=== PATIENT | female | born 1965 ===

== ENCOUNTER 2025-02-27 16:31 | Inpatient (IN) | payer OTHER, SELFPAY ==
--- OUTSIDE RECORDS SUMMARY | 2025-02-19 19:40 | XMS_ITS | Encounter Summary ---
Author Organization Gladis Arreola [facility] Address [address] [place] [address] Care Team Providers Care Spa Director Name Role Phone Sadi Mott Primary Care Provider [phone] Reason for Visit * Reason Comments Behavioral Health Encounter Details Date Type Department Care Team (Late st Contact Info) Description 02/19/2025 7:40 PM EDT - 02/27/2025 1:47 PM EDT Emergency [facility] [address] [place] [id number] Abigail Woodruff MD [address] [place] [id number] Mindi Thomas MD [address] [place] [phone] Hayden Cruz MD [address] [place] [phone] Malvin Schwartz MD [address] [place] [phone] Michael Perez MD [address] [place] [address] Flor Rucker MD [address] [place] [address] Jose Carlos Razo MD [address] [place] [address] Bg Basurto, DO [address] [place] [address] Mariam Sapp, DO [address] [place] [address] Wei Denton MD [address] [place] [address] Agitation (Primary Dx); Depression, unspecified depression type [F32.A]; Major depressive disorder with single episode, remission status unspecified Discharge Disposition: Another Health Care Institution Not Defined Social History Tobacco Use Types Packs/Day Years Used Date Smoking Tobacco: Never Assessed Humiliation, Afraid, Rape, and Kick questionnair e Answer Date Recorded Within the last year, have y ou been afraid of your partner or ex-partner? No 02/26/2025 Emotionally Abused Not on file 02/26/2025 Physically Abused Not on file 02/26/2025 Sexually Abused Not on file 02/26/2025 Overall Financial Resource Strain (CARDIA) Answe r Date Recorded How hard is it for you to pa y for the very basics like food, housing, medical care, and heating? Very hard 02/26/2025 Hunger Vital Sign Answer Date Recorded Within the past 12 months, y ou worried that your food would run out before you got the money to buy more. Never true 02/27/20 25 Ran Out of Food in the Last Year Not on file 02/26/2025 PRAPARE - Transportation Answer Date Re corded In the past 12 months, has l ack of transportation kept you from medical appointments or from getting medications? No 01/31 In the past 12 months, has l ack of transportation kept you from meetings, work, or from getting things needed for daily living? No 02/26/2025 Housing Stability Vital Sign Answer Darci e Recorded In the last 12 months, was t here a time when you were not able to pay the mortgage or rent on time? Yes 02/26/2025 Number of Times Moved in the Last Year Not on fi le 02/26/2025 At any time in the past 12 m [facility], were you homeless or living in a skilled nursing (including now)? Yes 02/26/2025 [facility] Utilities Answer Date Recorded In the past 12 months has th e electric, gas, oil, or water company threatened to shut off services in your home? Yes 02/26/2025 Food Insecurity Answer Date Recorded Within the past 12 months, y ou worried that your food would run out before you got the money to buy more. Never true 02/27/20 25 Ran Out of Food in the Last Year Not on file 02/26/2025 Intimate Partner Violence Answer Date R ecorded Emotionally Abused Not on file 02/26/2025 Within the last year, have y ou been afraid of your partner or ex-partner? No 02/26/2025 Physically Abused Not on file 02/26/2025 Sexually Abused Not on file 02/26/2025 Housing Stability Answer Date Recorded Unstable Housing in the Last Year Not on file 02/26/2025 In the last 12 months, was t here a time when you were not able to pay the mortgage or rent on time? Yes 02/26/2025 [address] of Places Lived in the Last Year Not on f ile 02/26/2025 Comments Unknown Sex and Gender Information Value Date Recorded Sex Assigned at Female 02/19/2025 8:27 PM EDT Legal Sex Female 5:00 PM EST Gender Identity Female 07/30/2023 7:39 PM EST Sexual Orientation Not on file documented as of this encounter Last Filed Vital Signs Vital Sign Reading Time Taken Comments Blood Pressure 115/76 02/27/2025 1:17 PM EDT Pulse 62 02/27/2025 1:17 PM EDT Temperature 36.6 C (97.8 F) 02/27/2025 1:17 PM EDT Respiratory Rate 18 02/27/2025 1:17 PM EDT Oxygen Saturation 99% 02/27/2025 1:17 PM EDT Inhaled Oxygen Concentration - - Weight 77.1 kg (170 lb) 02/19/2025 8:36 PM EDT Height 165.1 cm (5' 5 ) 02/19/2025 8:36 PM EDT Body Mass Index 28.29 02/19/2025 8:36 PM EDT documented in this encounter Medications at Time of Discharge atorvaSTATin (LIPITOR) 20 MG tablet Take 1 tablet (20 mg total) by mouth daily. 02/02/2025 cloNIDine (CATAPRES) 0.1 MG tablet Take 1 tablet (0.1 mg total) by mouth 4 times a day. 02/02/2025 famotidine (PEPCID) 40 MG tablet Take 1 tablet (40 mg total) by mouth daily. 2024 FLUoxetine (PROzac) 40 MG capsule Take 1 capsule (40 mg total) by mouth daily. 01/20/2025 hydrOXYzine pamoate (VISTARIL) 25 MG capsule Take 1 capsule (25 mg total) by mouth 4 times a day as needed for anxiety. 02/02/2025 levothyroxine (SYNTHROID, LEVOXYL) 88 MCG tablet Take 1 tablet (88 mcg total) by mouth every morning. 01/27/2025 OLANZapine (ZyPREXA) 10 MG tablet Take 1 tablet (10 mg total) by mouth at bedtime. 01/11/2025 omeprazole (PriLOSEC) [address] capsule Take 1 capsule (20 mg total) by mouth daily. 2024 pantoprazole (PROTONIX) [address] tablet Take 1 tablet (40 mg total) by mouth daily. 01/22/2025 traZODone (DESYREL) 50 MG tablet Take 1 tablet (50 mg total) by mouth 2 times a day. 02/10/2025 documented as of this encounter Progress Notes * MILTON Ibrahim - 02/27/2025 11:40 AM EDT Images from the original note were not included. ED Psych Progress Note Sticky Note Psych Handoff Reason for visit: SI Psych Hx: depression, alcohol Drugs/Alcohol: alcohol Section 12a: yes HES: IPLOC Suicide Level: low Medication Reconciliation complete:Yes Restraints/IM meds in last 24 hours: Yes. Droperidol, Versed, restraints Other information Was trying to check into [facility] But became very agitated when they asked for medical clearance. Here she was extremely agitated and yelling. Labs Pending for medical clearance 02-21-2025: Labs show downtrending liver function. Ultrasound without acute findings. Medically cleared for psychiatric placement Last edited by MILTON Ibrahim on 02/21/25 at 1050 Vitals Date and Time Temp Pulse Resp BP SpO2 User 02/27/25 0744 97.9 ??F (36.6 ??C) 51 18 104/67 97 % KD 02/26/252013 97.8 ??F (36.6 ??C) 72 -- 119/80 96 % DO 02/26/25 1516 97.5 ??F (36.4 ??C) 59 18 93/63 98 % EB 02/26/25 1304 -- 52 18 95/66 98 % RK 02/26/25 0830 -- -- -- 88/50 -- KF 02/26/25 0826 97.6 ??F (36.4 ??C) 49 20 84/53 97 % KF 02/25/25 1958 97.7 ??F (36.5 ??C) 70 18 117/74 98 % CGP 02/25/25 1725 -- -- -- 98/58 -- IG 02/25/25 1514 97.6 ??F (36.4 ??C) 51 18 117/70 98 % EB 02/25/25 1331 -- 53 18 97/67 98 % IG 02/25/25 0757 98 ??F (36.7 ??C) 47 16 109/73 94 % EB 02/24/252014 98.4 ??F (36.9 ??C) 47 16 102/66 96 % BA 02/24/25 1721 98.2 ??F (36.8 ??C) 56 18 91/63 97 % RK 02/24/25 1419 -- 45 18 125/83 97 % RK 02/24/25 0959 98 ??F (36.7 ??C) 45 18 96/66 96 % RK 02/23/25 2030 98 ??F (36.7 ??C) 54 18 104/66 95 % DO 02/23/25 0810 97.7 ??F (36.5 ??C) 56 16 122/68 97 % EB 02/22/251999 98.1 ??F (36.7 ??C) 58 16 120/73 97 % BA 02/22/25 1723 -- 53 -- 108/69 96 % RK 02/22/25 1415 97.9 ??F (36.6 ??C) 54 18 107/70 97 % RK 02/22/25 0737 97.6 ??F (36.4 ??C) 67 18 103/61 94 % RK 02/21/25 2100 -- 50 16 99/62 94 % BA 02/21/25 1912 -- 56 -- 101/64 -- RK 02/21/25 1446 97.8 ??F (36.6 ??C) 58 16 105/66 96 % KD 02/21/25 0746 96.9 ??F (36.1 ??C) 50 16 109/71 96 % RK 02/21/25 0645 97.5 ??F (36.4 ??C) 51 pt sleeping/resting 14 101/65 97 % BA 02/20/25 1945 98.1 ??F (36.7 ??C) 58 16 106/67 96 % BA 02/20/25 1826 97.7 ??F (36.5 ??C) 70 15 102/67 99 % NR 02/20/25 1220 97.7 ??F (36.5 ??C) 69 -- 112/72 -- NR 02/20/25 0000 98.1 ??F (36.7 ??C) 75 16 145/96 98 % JT 02/19/252303 -- 73 16 97/61 95 % [place] 02/19/255 97.6 ??F (36.4 ??C) 82 20 152/45 96 % [place] ED Course as of 02/27/25 1140 SunFeb 20, 2025 0809 No acute events overnight. [AM] 0949 I spoke to Jocelyn from [facility] who felt criteria for IPLOC. Will initiate bed search [AM] 1159 The patient has been accepted to [facility] by Dr. Escalante [AM] 1254 The patient has been declined from [facility] due to her elevated LFT's. I spoke to her and shedenies any abdominal pain. She states she does not believe she has seen her PCP in several years. 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 She denies any history of IVDU. Will repeat LFT's [AM] 1602 Repeat LFT's improving. The patient has no abdominal pain. She is medically cleared [AM] Sat Feb 21, 2025 0707 Assumed care of this patient at change of shift. Patient has had significantly elevated liver function on today's visit as was last visit which is felt secondary to alcohol/drug use. Afebrile. No leukocytosis. It has been several years since patient last had abdominal imaging and will obtain an abdominal ultrasound to ensure no acute obstructive process and to aid in her medical clearance for psychiatric placement [SD] 0848 Liver function still elevated but improved when compared with yesterday. Ultrasound pending [SD] 1048 Ultrasound without acute findings. Patient medically cleared for psychiatric placement [SD] Sun Feb 22, 2025 1535 No acute events overnight. Will continue bed search [AM] Mon Feb 23, 2025 0715 Assumed care of this patient at change of shift. No significant events overnight. Vital stable. Compliant with medications. Continued section 12/bed search [SD] 0920 Patient seen by home therapy clinician. She was unwilling to participate in the interview this morning or complete safety planning. For this reason, she is obligated to a bed search [SD] Wed Feb 25, 2025 0755 Crisis team has requested a psychiatry consultation for medication management, Prolonged ED stay [SD] 1113 Patient seen by psychiatry with the following medication recommendations: I add Zyprexa 5 mg q 8 hrs PRN paranoia I add Neurontin 200 mg q 6 hrs PRN anxiety [SD] Fri Feb 27, 2025 0906 Patient continues to board for inpatient psychiatric care without any new medical complaints. Labs reviewed. Patient remains medically cleared [SD] 1139 Patient accepted to [facility] for inpatient psychiatric care [SD] ED Course User Index [AM] MILTON Hooper [SD] MILTON Ibrahim Clinical Impression 1. Agitation 2. Depression, unspecified depression type [F32.A] 3. Major depressive disorder with single episode, remission status unspecified Disposion: Transfer Patient discussed with attending physicianBertin * Brooke Germain, MS - 02/27/2025 9:52 AM EDT Behavioral Health Crisis Consult - Follow Up Patient: Anitha Mcintosh : 1965 Admit Date: 02/19/2025 Date of Consult: 02/27/2025 Time of Consult: 9:52 AM CC: Chief Complaint Patient presents with Behavioral Health Chart Reviewed, case discussed with team and staff. Updates: Psych consult outcome/psych medications: Patient was seen by [facility] psychiatry on 02/25 with the following noted: Recommendation/Plan: I add Zyprexa 5 mg q 8 hrs PRN paranoia I add Neurontin 200 mg q 6 hrs PRN anxiety Medical/Psychiatric/Substance/Social/Family History: Histories from previous consult note of 02/26 remain unchanged, except as note in HPI. Current Medications: Scheduled Medications[1] Current PRN: PRN Medications[2] Allergies: Patient has no known allergies. Physical Exam: Patient Vitals for the past 24 hrs: BP Temp Temp src Pulse Resp SpO2 02/27/25 0744 104/67 97.9 ??F (36.6 ??C) Temporal 51 18 97 % 02/26/252013 119/80 97.8 ??F (36.6 ??C) Temporal 72 -- 96 % 02/26/25 1516 93/63 97.5 ??F (36.4 ??C) Oral 59 18 98 % 02/26/25 1304 95/66 -- -- 52 18 98 % Mental Status Exam: General Appearance: Appears stated age, well-developed, well-nourished and no apparent distress. Disheveled. Level of Consciousness: Alert. Orientation: Oriented to person, place, time and situation. Attitude and Behavior: Disengaged. Eye Contact: Unable to assess. Psychomotor Activity: Normal. Speech: Normal rate and rhythm. Soft and mumbled. Language: Normal. Affect: Depressed and flat. Thought Content: Unable to assess. Attention Span: Unable to assess. Insight: Poor. Judgment: Poor. Labs, Imaging & Other Studies: Laboratory: Recent lab results have been reviewed and are notable for N/A. No results found for this or any previous visit (from the past 24 hours). EKG: No studies were reviewed. C-SSRS: Colman Suicide Severity Rating Scale (C-SSRS) Since Last Contact Screener 1) Have you wished you were or wished you could go to sleep and not wake up? (Since Last Contact): No 2) Have you actually had any thoughts about killing yourself? (Since Last Contact): No 6) Have you done anything, started to do anything, or prepared to do anything to end your life? (Since Last Contact): No C-SSRS Risk Level (Since Last Contact Screener): No Risk Indicated (02/27/25 0922 : Brooke Germain MS) Assessment: Anitha Mcintosh is a 59 year old female with a hx of anxiety, depression, SI, and alcohol use who presented to [facility] ED on a Section 12 from [facility] due to SI. Per previous evaluation, Pt reportedly made SI statements at the facility, repeatedly stating on arrival to the ED I want to . Upon evaluation today, patient presentation remains largely unchanged. Patient has blanket pulled over head, minimally engaged. This clinician attempted to engage patient in evaluation multiple timesunsuccessfully. At one point, patient pulled blanket off head states I am mourning then puts blanket back over head. This clinician attempted to provide support, patient does not respond. It was reported by ED staff that patient heard news of her mother's passing last night. IPLOC continues to be recommended. Recommendations: Inpatient Level of Care Disposition Recommendation: Inpatient Level of Care Behavioral Health Diagnosis: Depression, unspecified depression type (F32.A) Duration: Time Spent (min): 60 Case d/w: Nivia CRAFT Manager Of Transportation [place] Signed by: Brooke Germain MS [1] atorvaSTATin, 20 mg, Oral, Daily [Held by provider] cloNIDine, 0.1 mg, Oral, 4 times daily diphenhydrAMINE, 50 mg, Oral, Once famotidine, 40 mg, Oral, Daily FLUoxetine, 40 mg, Oral, Daily levothyroxine, 88 mcg, Oral, Daily (0600) OLANZapine, 10 mg, Oral, QHS pantoprazole, 40 mg, Oral, Daily (0600) traZODone, 50 mg, Oral, BID [2] acetaminophen benzocaine gabapentin hydrOXYzine HCL melatonin nicotine polacrilex OLANZapine * Jeremiah Argueta - 02/26/2025 5:14 PM EDT Behavioral Health Crisis Consult- Contact Note Patient: Anitha Mcintosh : 1965 Admit Date: 02/19/2025 Date of Consult: 02/26/2025 Time of Consult: 5:14 PM Narrative: MSU 8.28 Uploaded to [facility] Declined by; Nilam Nolasco (specialized unit required) * Mamadou Dhaliwaljaylyn, MS - 02/26/2025 12:10 PM EDT Behavioral Health Crisis Consult - Follow Up Patient: Anitha Mcintosh : 1965 Admit Date: 02/19/2025 Date of Consult: 02/26/2025 Time of Consult: 12:10 PM CC: Chief Complaint Patient presents with Behavioral Health Current Medications: Scheduled Medications[1] Current PRN: PRN Medications[2] Allergies: Patient has no known allergies. Physical Exam: Patient Vitals for the past 24 hrs: BP Temp Temp src Pulse Resp SpO2 02/26/25 0830 (!) 88/50 -- -- -- -- -- 02/26/25 0826 (!) 84/53 97.6 ??F (36.4 ??C) Temporal (!) 49 20 97 % 02/25/25 1958 117/74 97.7 ??F (36.5 ??C) Temporal 70 18 98 % 02/25/25 1725 98/58 -- -- -- -- -- 02/25/25 1514 117/70 97.6 ??F (36.4 ??C) Oral 51 18 98 % 02/25/25 1331 97/67 -- -- 53 18 98 % Mental Status Exam: Mental Status Exam General Appearance: Well-developed and no apparent distress. Appears older than stated age and disheveled. Level of Consciousness: Alert. Orientation: Oriented to person and place. Attitude and Behavior: Disengaged. Eye Contact: Eye contact avoidant. Psychomotor Activity: Normal. Speech: Normal rate, volume and rhythm. Language: Normal. Affect: Blunted. Thought Process and Associations: Unable to asses. Attention Span: Distracted. Memory: Intact recall. Fund of Knowledge: Normal. Cognition: Normal. C-SSRS: Colman Suicide Severity Rating Scale (C-SSRS) Since Last Contact Screener 1) Have you wished you were or wished you could go to sleep and not wake up? (Since Last Contact): No 2) Have you actually had any thoughts about killing yourself? (Since Last Contact): No 6) Have you done anything, started to do anything, or prepared to do anything to end your life? (Since Last Contact): No C-SSRS Risk Level (Since Last Contact Screener): No Risk Indicated (02/26/25 1209 : Mamadou Cortés MS) Assessment: Anitha Mcintosh is a 59 yo female currently at the [facility] Emergency Department. She is noted to have a history of anxiety, depression and substance abuse. She was sent to the ED from detox at [facility], where she was making multiple SI statements. Patient was evaluated and deemed appropriate for IPLOC due to concerns with ???SI, hx of SA, homelessness, active substance abuse, unreliable reporting, disengagement, and decline in overall mental health?? (from original evaluation). A review of the chart indicates that patient has had a difficult time engaging in the evaluation process. Collaterals were contacted over the past few days, who expressed concerns with self-care. Upon meeting with patient she is covered with a blanket. She is not engaging in the evaluation process. Presentation appears to be unchanged from the past few days. She has been under behavioral control. IPLOC continues to be recommended Recommendations: Requested LOC: IPLOC Disposition Recommendation: Inpatient Level of Care Behavioral Health Diagnosis: Depression, unspecified depression type (F32.A) Duration: Time Spent (min): 60 Case d/w: Sidewalk Inspector [employer]NANC[employer] director [place] Signed by: Mamadou Cortés MS [1] atorvaSTATin, 20 mg, Oral, Daily [Held by provider] cloNIDine, 0.1 mg, Oral, 4 times daily famotidine, 40 mg, Oral, Daily FLUoxetine, 40 mg, Oral, Daily levothyroxine, 88 mcg, Oral, Daily (0600) OLANZapine, 10 mg, Oral, QHS pantoprazole, 40 mg, Oral, Daily (0600) traZODone, 50 mg, Oral, BID [2] benzocaine gabapentin hydrOXYzine HCL nicotine polacrilex OLANZapine * Joao Morin - 02/25/2025 6:22 PM EDT MSU 8.27 Uploaded to [facility] Declined by; Nilam Nolasco (specialized unit required) * Vera Gray - 02/25/2025 10:03 AM EDT Behavioral Health Crisis Consult - Follow Up Patient: Anitha Mcintosh : 1965 Admit Date: 02/19/2025 Date of Consult: 02/25/2025 Time of Consult: 10:03 AM CC: Chief Complaint Patient presents with Behavioral Health Chart Reviewed, case discussed with team and staff. Collateral Contact: Yes Explain:: I spoke with her friend, Bryan ([phone]), who reports ???she???s off the rails rightnow?? and has ???never seen her this bad.?? She???s had 2 strokes related to drinking about 2 - 3years ago. Her mother is her primary ultrasonic welding machine operator, but her mother has had 2 or 3 heart attacks in the past 1 -2 years and has since moved to [place]. The mother set her up in an apartment with a offset press assistant, food delivery, along with a washer and dryer. He states she is totally incapable of taking careof herself and she has lost her apartment. I left voicemail for her friend, Brisa ([phone]),asking for a return call. Attempted contact with her mother Lia ([phone]), but the mailbox is full. Medical/Psychiatric/Substance/Social/Family History: Histories from previous consult note of 02/20 remain unchanged, except as note in HPI. Current Medications: Scheduled Medications[1] Current PRN: PRN Medications[2] Allergies: Patient has no known allergies. Physical Exam: Patient Vitals for the past 24 hrs: BP Temp Temp src Pulse Resp SpO2 02/25/25 0757 109/73 98 ??F (36.7 ??C) Oral (!) 47 16 94 % 02/24/252014 102/66 98.4 ??F (36.9 ??C) Temporal (!) 47 16 96 % 02/24/25 1721 91/63 98.2 ??F (36.8 ??C) Temporal 56 18 97 % 02/24/25 1419 125/83 -- -- (!) 45 18 97 % Mental Status Exam: Mental Status Exam General Appearance: Appears stated age, well-developed and no apparent distress. Level of Consciousness: Alert. Orientation: Oriented to person. Attitude and Behavior: Disengaged and guarded. Eye Contact: Eye contact avoidant. Speech: Normal rate, volume and rhythm. Language: Normal. Mood: Patient description of mood: I was just crying out for help. Affect: Flat. Thought Content: No suicidal ideation, no self-injurious ideation, no homicidal ideation and not actively hallucinating. Attention Span: Poor. Insight: Poor. Judgment: Poor. Labs, Imaging & Other Studies: Laboratory: Recent lab results have been reviewed No results found for this or any previous visit (from the past 24 hours). EKG: No studies were reviewed. C-SSRS: Colman Suicide Severity Rating Scale (C-SSRS) Since Last Contact Screener 1) Have you wished you were or wished you could go to sleep and not wake up? (Since Last Contact): No 2) Have you actually had any thoughts about killing yourself? (Since Last Contact): No 6) Have you done anything, started to do anything, or prepared to do anything to end your life? (Since Last Contact): No C-SSRS Risk Level (Since Last Contact Screener): No Risk Indicated (02/25/25 0958 : Vera Gray) Assessment: Anitha Mcintosh is a 59 year old female with a hx of anxiety, depression, SI, and alcohol use who presented to [facility] ED on a Section 12 from [facility] due to SI. Per previous evaluation, Pt reportedly made SI statements at the facility, repeatedly stating on arrival to the ED I want to . [facility] was contacted previously who reported the following, [facility] community health nursing director alsocontacted during evaluation. He states that pt reported multiple SI statements yesterday at the facility. Pt did drink a beer but it is unclear how much pt had to drink/if pt had been drinking prior to this. Pt was making SI statements to them so they had called their clinician to respond to the scene. Pt reported intent to harm herself if they did not help her. She also made multiple threateningstatements toward staff at the facility. Pt presented as tearful, labile, and unable to be redirected. Patient's friend Bryan was contacted in previous evaluation who reported the following, He describes patient as sweet, sweet, sweet woman who give her shirt off her back to help somebody but notes current state as really off the rails and quite irritable right now and not talking much. He expresses concern about suicidal ideation, noting individual has made statements over several years.He states she is totally incapable of taking care of herself and she has lost her apartment. Patient is alert and oriented to self only. She was uncooperative throughout the evaluation and demonstrated poor engagement, redirection with no effect. She required prompts to answer questions. Behavior was notable for passing gas and staring at the ipad screen; eye contact was avoidant. Speech was of even tone, with appropriate volume and rate. Energy level appeared in no apparent distress. Affect was flat. Insight, impulse control, and judgment are all assessed as poor. When asked about mood, patient stated, I was just crying out for help, I'm fine now. She reported that she does not like hospitals and is not happy to be here. Patient is unable to appropriately engage in the evaluation or participate in safety planning at this time. Per RN report, patient remained in good behavioralcontrol during the evening and night shifts and took all prescribed medications. Patient denies suicidal ideation, homicidal ideation, auditory or visual hallucinations and self-injurious behavior at this time. However, she initially denied making suicidal statements, then later stated, I found out that my mom was dying so I probably said I wanted to with my mom. She reports a history of suicide attempt several years ago but declined to provide further details. Collateral contacts were attempted but not successful today. Recommendations: IPLOC continues to be recommended at this time Disposition Recommendation: Inpatient Level of Care Behavioral Health Diagnosis: Depression, unspecified depression type (F32.A) Duration: Time Spent (min): 60 Case d/w: Debra Gutierrez Signed by: Hilda Johnson M.Ed. [1] atorvaSTATin, 20 mg, Oral, Daily cloNIDine, 0.1 mg, Oral, 4 times daily famotidine, 40 mg, Oral, Daily FLUoxetine, 40 mg, Oral, Daily levothyroxine, 88 mcg, Oral, Daily (0600) OLANZapine, 10 mg, Oral, QHS pantoprazole, 40 mg, Oral, Daily (0600) traZODone, 50 mg, Oral, BID [2] benzocaine hydrOXYzine HCL nicotine polacrilex * MILTON Ibrahim - 02/25/2025 9:01 AM EDT Images from the original note were not included. ED Psych Progress Note Sticky Note Psych Handoff Reason for visit: SI Psych Hx: depression, alcohol Drugs/Alcohol: alcohol Section 12a: yes HES: IPLOC Suicide Level: low Medication Reconciliation complete:Yes Restraints/IM meds in last 24 hours: Yes. Droperidol, Versed, restraints Other information Was trying to check into [facility] But became very agitated when they asked for medical clearance. Here she was extremely agitated and yelling. Labs Pending for medical clearance 02-21-2025: Labs show downtrending liver function. Ultrasound without acute findings. Medically cleared for psychiatric placement Last edited by MILTON Ibrahim on 02/21/25 at 1050 Vitals Date and Time Temp Pulse Resp BP SpO2 User 02/25/25 1514 97.6 ??F (36.4 ??C) 51 18 117/70 98 % EB 02/25/25 1331 -- 53 18 97/67 98 % IG 02/25/25 0757 98 ??F (36.7 ??C) 47 16 109/73 94 % EB 02/24/252014 98.4 ??F (36.9 ??C) 47 16 102/66 96 % BA 02/24/25 1721 98.2 ??F (36.8 ??C) 56 18 91/63 97 % RK 02/24/25 1419 -- 45 18 125/83 97 % RK 02/24/25 0959 98 ??F (36.7 ??C) 45 18 96/66 96 % RK 02/23/25 2030 98 ??F (36.7 ??C) 54 18 104/66 95 % DO 02/23/25 0810 97.7 ??F (36.5 ??C) 56 16 122/68 97 % EB 02/22/25 2000 98.1 ??F (36.7 ??C) 58 16 120/73 97 % BA 02/22/25 1723 -- 53 -- 108/69 96 % RK 02/22/25 1415 97.9 ??F (36.6 ??C) 54 18 107/70 97 % RK 02/22/25 0737 97.6 ??F (36.4 ??C) 67 18 103/61 94 % RK 02/21/25 2100 -- 50 16 99/62 94 % BA 02/21/25 1912 -- 56 -- 101/64 -- RK 02/21/25 1446 97.8 ??F (36.6 ??C) 58 16 105/66 96 % KD 02/21/25 0746 96.9 ??F (36.1 ??C) 50 16 109/71 96 % RK 02/21/25 0645 97.5 ??F (36.4 ??C) 51 pt sleeping/resting 14 101/65 97 % BA 02/20/25 1945 98.1 ??F (36.7 ??C) 58 16 106/67 96 % BA 02/20/25 1826 97.7 ??F (36.5 ??C) 70 15 102/67 99 % NR 02/20/25 1220 97.7 ??F (36.5 ??C) 69 -- 112/72 -- NR 02/20/25 0000 98.1 ??F (36.7 ??C) 75 16 145/96 98 % JT 02/19/252303 -- 73 16 97/61 95 % [place] 02/19/251954 97.6 ??F (36.4 ??C) 82 20 152/45 96 % [place] ED Course as of 02/25/25 1636 Fri Feb 20, 2025 0809 No acute events overnight. [AM] 0949 I spoke to Jocelyn from crisis who felt criteria for IPLOC. Will initiate bed search [AM] 1159 The patient has been accepted to [facility] by Dr. Escalante [AM] 1254 The patient has been declined from [facility] due to her elevated LFT's. I spoke to her and shedenies any abdominal pain. She states she does not believe she has seen her PCP in several years. 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 She denies any history of IVDU. Will repeat LFT's [AM] 1602 Repeat LFT's improving. The patient has no abdominal pain. She is medically cleared [AM] [facility] Feb 21, 2025 0707 Assumed care of this patient at change of shift. Patient has had significantly elevated liver function on today's visit as was last visit which is felt secondary to alcohol/drug use. Afebrile. No leukocytosis. It has been several years since patient last had abdominal imaging and will obtain an abdominal ultrasound to ensure no acute obstructive process and to aid in her medical clearance for psychiatric placement [SD] 0848 Liver function still elevated but improved when compared with yesterday. Ultrasound pending [SD] 1048 Ultrasound without acute findings. Patient medically cleared for psychiatric placement [SD] [place] Feb 22, 2025 1535 No acute events overnight. Will continue bed search [AM] [facility] Feb 23, 2025 0715 Assumed care of this patient at change of shift. No significant events overnight. Vital stable. Compliant with medications. Continued section 12/bed search [SD] 0920 Patient seen by home therapy clinician. She was unwilling to participate in the interview this morning or complete safety planning. For this reason, she is obligated to a bed search [SD] Wed Feb 25, 2025 0755 Crisis team has requested a psychiatry consultation for medication management, Prolonged ED stay [SD] 1113 Patient seen by psychiatry with the following medication recommendations: I add Zyprexa 5 mg q 8 hrs PRN paranoia I add Neurontin 200 mg q 6 hrs PRN anxiety [SD] ED Course User Index [AM] MILTON Hooper [SD] MILTON Ibrahim Clinical Impression 1. Agitation 2. Depression, unspecified depression type [F32.A] 3. Major depressive disorder with single episode, remission status unspecified Disposion: Boarding Patient discussed with attending physician, Dr. Woodruff * Jeremiah Argueta - 02/24/2025 10:54 AM EDT Behavioral Health Crisis Consult- Contact Note Patient: Anitha Mcintosh : 1965 Admit Date: 02/19/2025 Date of Consult: 02/24/2025 Time of Consult: 10:54 AM Narrative: Uploaded MSU 8. to [facility], all facilities still pending review. * Brooke Oreillylyssa, MS - 02/24/2025 8:25 AM EDT Behavioral Health Crisis Consult - Follow Up Patient: Anitha Mcintosh : 1965 Admit Date: 02/19/2025 Date of Consult: 02/24/2025 Time of Consult: 8:25 AM CC: Chief Complaint Patient presents with Behavioral Health Chart Reviewed, case discussed with team and staff. Updates: Psych consult outcome/psych medications: None Medical/Psychiatric/Substance/Social/Family History: Histories from previous consult note of 02/23 remain unchanged, except as note in HPI. Current Medications: Scheduled Medications[1] Current PRN: PRN Medications[2] Allergies: Patient has no known allergies. Physical Exam: Patient Vitals for the past 24 hrs: BP Temp Temp src Pulse Resp SpO2 02/23/25 2030 104/66 98 ??F (36.7 ??C) Temporal 54 18 95 % Mental Status Exam: General Appearance: Unable to assess, patient did not remove blanket from over head Orientation: Oriented to person. Attitude and Behavior: Disengaged and guarded. Eye Contact: Unable to assess. Psychomotor Activity: Normal. Speech: Normal rate and rhythm. Soft and mumbled. Language: Normal. Affect: Flat. Attention Span: Appropriate. Memory: Grossly intact. Fund of Knowledge: Normal. Cognition: Normal. Insight: Poor. Judgment: Poor. Labs, Imaging & Other Studies: Laboratory: Recent lab results have been reviewed and are notable for N/A. No results found for this or any previous visit (from the past 24 hours). EKG: No studies were reviewed. C-SSRS: Colman Suicide Severity Rating Scale (C-SSRS) Since Last Contact Screener 1) Have you wished you were or wished you could go to sleep and not wake up? (Since Last Contact): No (patinet denies) 2) Have you actually had any thoughts about killing yourself? (Since Last Contact): No (patient denies) C-SSRS Risk Level (Since Last Contact Screener): No Risk Indicated (02/24/2524 : Brooke Germain, MS) Assessment: Anitha Mcintosh is a 59 year old female with a hx of anxiety, depression, SI, and alcohol use who presented to [facility] ED on a Section 12 from [facility] due to SI. Per previous evaluation, Pt reportedly made SI statements at the facility, repeatedly stating on arrival to the ED I want to . [facility] was contacted previously who reported the following, [facility] community health nursing director alsocontacted during evaluation. He states that pt reported multiple SI statements yesterday at the facility. Pt did drink a beer but it is unclear how much pt had to drink/if pt had been drinking prior to this. Pt was making SI statements to them so they had called their clinician to respond to the scene. Pt reported intent to harm herself if they did not help her. She also made multiple threateningstatements toward staff at the facility. Pt presented as tearful, labile, and unable to be redirected. Patient's friend Bryan was contacted in previous evaluation who reported the following, He describes patient as sweet, sweet, sweet woman who give her shirt off her back to help somebody but notes current state as really off the rails and quite irritable right now and not talking much. He expresses concern about suicidal ideation, noting individual has made statements over several years.He states she is totally incapable of taking care of herself and she has lost her apartment. Upon evaluation today, patient presentation remains unchanged, patient difficult to engage in evaluation - patient has blanket over her head upon this clinician entering room, patient declines to remove it even when asked multiple times as it was difficult to hear patient. Speech was soft and mumbled, often needed to ask for repeating. She is largely disengaged and states that she does not want to talk. Patient reports that she does not remember where she was prior to ED arrival, patient initially denies making suicidal statements then later states, I found out that my mom was dying so I probably said I wanted to with my mom. Patient denies current and historical SI, although this does not appear accurate per EMR review. Patient does not appear to be reliable historian at this time.It was difficult to obtain psychiatric/social hx as patient often responded minimally - patient then rolls over and states she no longer wants to speak with this clinician. Patient is not able to appropriately engage in evaluation or safety planning at this time. IPLOC continues to be recommended at this time. Recommendations: Inpatient Level of Care Requested LOC: IPLOC Disposition Recommendation: Inpatient Level of Care Behavioral Health Diagnosis: Depression, unspecified depression type (F32.A) Duration: Time Spent (min): 60 Case d/w: [facility] Shift Lead Debra Gutierrez Signed by: Brooke Germain MS [1] atorvaSTATin, 20 mg, Oral, Daily cloNIDine, 0.1 mg, Oral, 4 times daily famotidine, 40 mg, Oral, Daily FLUoxetine, 40 mg, Oral, Daily levothyroxine, 88 mcg, Oral, Daily (0600) OLANZapine, 10 mg, Oral, QHS pantoprazole, 40 mg, Oral, Daily (0600) traZODone, 50 mg, Oral, BID [2] benzocaine hydrOXYzine HCL nicotine polacrilex * Andrew Sherman LCSW - 02/23/2025 12:11 PM EDT Patient referral uploaded to [facility] * Leslie Lockett - 02/23/2025 9:48 AM EDT [facility] adult unit both informed, via secure electronic communication, that patient is currently boarding at [facility] ED for IP-LOC. * Leslie Melida Lockett - 02/23/2025 9:04 AM EDT Behavioral Health Crisis Consult - Follow Up Patient: Anitha Mcintosh : 1965 Admit Date: 02/19/2025 Date of Consult: 02/23/2025 Time of Consult: 9:04 AM CC: Chief Complaint Patient presents with Behavioral Health Chart Reviewed, case discussed with team and staff. The patient is a 59-year-old female who was evaluated today by telehealth for behavioral assessmentat [facility] ED. The patient was uncooperative for much of this assessment, demonstrating avoidant behaviors such as turning away from the camera, closing her eyes, and providing vague or non-committal answers to questions. She was unable to state why she was at the hospital or how she arrived there, reporting that she had been there for a couple of days. She was disoriented to the current date, initially stating the year was 2019 or 2022, but correctly identified the month as January and the year as 2024 when prompted; she was able to identify the current president. The patient reports a history of being transferred between multiple facilities, expressing frustration and fatigue with the situation, stating she has been in place after place. She reports that she was at someplace in [place] before being sent to [facility]. She states that she became homeless while hospitalized but could not provide details as to how this occurred. She previously lived in [facility]. Her primary concern expressed during the interview was to be discharged to retrieve her cat, which she reports was taken to an animal skilled nursing in [place] at the same time she was taken away a while ago. She was unable to provide the name of the skilled nursing but stated she would need to call to find it. The patient reports she has a disaster recovery coordinator named Srikanth, who she reports she met at recovery, but she does not know where he works or how to contact him. When questioned about suicidal ideation, she was initially non-responsive. She eventually denied any current suicidal ideation. She did report a past suicide attempt by cutting her wrists over 50 years ago, when she was approximately 10 years old. She declined to answer HI questions. She declined to answer most questions and often responding by yelling that she is tired, that she is too tired and is sick of everything and doesn't care anymore. She identified an emergency contact, a friend named Bryan, who has been in recovery for 32 years, but she was unsure if he was aware of her current hospitalization. Due to her non-cooperation and lack of engagement, a full assessment was not possible as she refused to answer questions and continually turned away from the camera and pulled blankets over her head.She was informed that due to her inability to participate in safe discharge planning, she would remain at an inpatient level of care while the team seeks a psychiatric facility placement; patient grunted and again turned away from the telehealth camera. Updates: Per RN, the patient has been in good behavioral control. Collateral Contact: Yes Explain:: I spoke with her friend, Bryan ([phone]), who reports ???she???s off the rails rightnow?? and has ???never seen her this bad.?? She???s had 2 strokes related to drinking about 2 - 3years ago. Her mother is her primary ultrasonic welding machine operator, but her mother has had 2 or 3 heart attacks in the past 1 -2 years and has since moved to [place]. The mother set her up in an apartment with a offset press assistant, food delivery, along with a washer and dryer. He states she is totally incapable of taking careof herself and she has lost her apartment. I left voicemail for her friend, Brisa ([phone]),asking for a return call. Attempted contact with her mother Lia ([phone]), but the mailbox is full. Medical/Psychiatric/Substance/Social/Family History: Histories from previous consult note remain unchanged, except as note in HPI. Current Medications: Scheduled Medications[1] Current PRN: PRN Medications[2] Allergies: Patient has no known allergies. Physical Exam: Patient Vitals for the past 24 hrs: BP Temp Temp src Pulse Resp SpO2 02/23/25 0810 122/68 97.7 ??F (36.5 ??C) Oral 56 16 97 % 08/24/25 2000 120/73 98.1 ??F (36.7 ??C) Temporal 58 16 97 % 02/22/25 1723 108/69 -- -- 53 -- 96 % 02/22/25 1415 107/70 97.9 ??F (36.6 ??C) Temporal 54 18 97 % Mental Status Exam: Mental Status Exam General Appearance: Appears older than stated age, disheveled and moderate distress. Level of Consciousness: Lethargic. Orientation: Oriented to person, place and time. Attitude and Behavior: Disengaged, emotional outbursts, hostile and guarded. Eye Contact: Eye contact avoidant. Psychomotor Activity: Agitated. Speech: Normal rate, rhythm and pitch. Loud and mumbled. Language: Normal. Mood: Patient description of mood: I don't care. Comments: Irritable and apathetic.. Affect: Constricted and irritable. Thought Process and Associations: Thought blocking and disorganized. Comments: Disorganized, tangential at times. Unable to provide a linear history of recent events.. Thought Content: No suicidal ideation, no suicidal plan, no suicidal intent, no suicidal means, no self-injurious ideation and not actively hallucinating. Attention Span: Unable to attend. Memory: Unable to assess. Fund of Knowledge: Unable to assess. Cognition: Unable to assess. Insight: Poor. Comments: Poor. Unable to articulate the reasons for her hospitalization or her current needs beyond wanting her cat.. Judgment: Poor. Labs, Imaging & Other Studies: Laboratory: Recent lab results have been reviewed. No results found for this or any previous visit (from the past 24 hours). EKG: No studies were reviewed. C-SSRS: Colman Suicide Severity Rating Scale (C-SSRS) Since Last Contact Screener 1) Have you wished you were or wished you could go to sleep and not wake up? (Since Last Contact): No 2) Have you actually had any thoughts about killing yourself? (Since Last Contact): No 6) Have you done anything, started to do anything, or prepared to do anything to end your life? (Since Last Contact): No C-SSRS Risk Level (Since Last Contact Screener): No Risk Indicated (02/23/25 0801 : Leslie Lockett) Colman Suicide Severity Rating Scale (C-SSRS) Discharge Screener 1) While you were here in the hospital/program, have you wished you were or wished you could go to sleep and not wake up?: No 2) While you were here in the hospital/program, have you actually had thoughts about killing yourself?: No 6) While you were here in the hospital/program, have you done anything, started to do anything, or prepared to do anything to end your life?: No C-SSRS Risk Level (Discharge Screener): Low (02/23/25 0825 : Leslie Lockett) Assessment: Patient is a 59 y.o. female with past medical and psychiatric history as above now presents with significant disorientation, mood dysregulation, and an inability to care for herself, in the context of alcohol use disorder, homelessness, and multiple medical comorbidities. Her non-compliance with the assessment and history of suicidal behavior place her at a moderate risk of self-harm. She requires continued inpatient psychiatric care for safety, stabilization, and diagnostic clarification. - Risk Factors: History of suicide attempt, history of alcohol use disorder, recent significant stressors (loss of housing, loss of primary caregiver support), social isolation, current disorganized mental state, poor engagement with assessment. - Protective Factors: Stated desire to be reunited with her cat, history of long-term friendships (Bryan), and reported engagement with a disaster recovery coordinator (Srikanth). - Suicide Risk Level: Based on a review of the risk and protective factors and on the clinical interview, I believe that: Ms. Mcintosh is at a moderate risk for suicide. Her non-cooperation, significant life stressors, and history of self-harm are concerning. While she denies recent ideation, her inability to engage fully in the assessment limits a complete evaluation of her current risk. I spoke with her friend, Bryan ([phone]), who reports ???she???s off the rails right now?? and has ???never seen her this bad.?? She???s had 2 strokes related to drinking about 2 - 3 years ago. Her mother is her primary ultrasonic welding machine operator, but her mother has had 2 or 3 heart attacks in the past 1 -2 years and has since moved to [place]. The mother set her up in an apartment with a offset press assistant, food delivery, along with a washer and dryer. He states she is totally incapable of taking care of herselfand has lost her apartment. He reports that he has known her for over 20 years, maintaining contactthroughout. She previously lived in [place], [place] for several years before the recent housing loss. History of alcohol use disorder with periods of sobriety: longest periods were 7 years and 5 years but has been struggling significantly over past couple years. Her mother (Lia) previously provided extensive support including a nice apartment with washer/dryer, food delivery, and financial assistance. Approximately 4 months ago, she went off the rails and began knocking on neigh bors' doors asking for money and lost apartment approximately 3 months ago due to behavior issues in an upscale building. 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 Her family situation complicated by sister with Down syndrome who previously lived with mother but had to be placed in residential care due to mother's declining health. He describes patient as sweet, sweet, sweet woman who give her shirt off her back to help somebody but notes current state as really off the rails and quite irritable right now and not talking much. He expresses concern about suicidal ideation, noting individual has made statements over several years. I left voicemail for her friend, Brisa ([phone]), asking for a return call. I attempted contact with her mother Lia ([phone]), but the mailbox is full. Recommendations: IP-LOC for safety, stabilization, diagnosis clarification to rule out memory impairment, and medication evaluation. Requested LOC: IP Barriers to placement/Specialty Placement Required: No barriers identified. Disposition Recommendation: Inpatient Level of Care Behavioral Health Diagnosis: F32.A - unspecified depressive disorder Duration: Time Spent (min): 63 Case d/w: Debra Gutierrez Signed by: Leslie Lockett Consent for the use of AI-assisted tools for documentation was obtained from the patient and all other participants in the visit prior to this encounter. All questions were answered. Patient understands that they may decline the use of AI-assisted tools. [1] atorvaSTATin, 20 mg, Oral, Daily cloNIDine, 0.1 mg, Oral, 4 times daily famotidine, 40 mg, Oral, Daily FLUoxetine, 40 mg, Oral, Daily levothyroxine, 88 mcg, Oral, Daily (0600) LORazepam, 0.5 mg, Oral, Q12H OLANZapine, 10 mg, Oral, QHS pantoprazole, 40 mg, Oral, Daily (0600) traZODone, 50 mg, Oral, BID [2] benzocaine hydrOXYzine HCL [] LORazepam FOLLOWED BY LORazepam [] LORazepam FOLLOWED BY LORazepam nicotine polacrilex * MILTON Ibrahim - 02/23/2025 7:15 AM EDT Images from the original note were not included. ED Psych Progress Note Sticky Note Psych Handoff Reason for visit: SI Psych Hx: depression, alcohol Drugs/Alcohol: alcohol Section 12a: yes HES: IPLOC Suicide Level: low Medication Reconciliation complete:Yes Restraints/IM meds in last 24 hours: Yes. Droperidol, Versed, restraints Other information Was trying to check into [facility] But became very agitated when they asked for medical clearance. Here she was extremely agitated and yelling. Labs Pending for medical clearance 02-21-2025: Labs show downtrending liver function. Ultrasound without acute findings. Medically cleared for psychiatric placement Last edited by MILTON Ibrahim on 02/21/25 at 1050 Vitals Date and Time Temp Pulse Resp BP SpO2 User 02/22/251999 98.1 ??F (36.7 ??C) 58 16 120/73 97 % 02/22/25 1723 -- 53 -- 108/69 96 % 02/22/25 1415 97.9 ??F (36.6 ??C) 54 18 107/70 97 % 02/22/25 0737 97.6 ??F (36.4 ??C) 67 18 103/61 94 % 02/21/25 2100 -- 50 16 99/62 94 % 02/21/25 1912 -- 56 -- 101/64 -- RK 02/21/25 1446 97.8 ??F (36.6 ??C) 58 16 105/66 96 % [place] 02/21/25 0746 96.9 ??F (36.1 ??C) 50 16 109/71 96 % RK 02/21/25 0645 97.5 ??F (36.4 ??C) 51 pt sleeping/resting 14 101/65 97 % BA 02/20/25 1945 98.1 ??F (36.7 ??C) 58 16 106/67 96 % BA 02/20/25 1826 97.7 ??F (36.5 ??C) 70 15 102/67 99 % NR 02/20/25 1220 97.7 ??F (36.5 ??C) 69 -- 112/72 -- NR 02/20/25 0000 98.1 ??F (36.7 ??C) 75 16 145/96 98 % JT 02/19/25 2304 -- 73 16 97/61 95 % [place] 02/19/25 1955 97.6 ??F (36.4 ??C) 82 20 152/45 96 % [place] ED Course as of 02/23/25 1817 SunFeb 20, 2025 0809 No acute events overnight. [AM] 0949 I spoke to Jocelyn from [facility] who felt criteria for IPLOC. Will initiate bed search [AM] 1159 The patient has been accepted to [facility] by Dr. Escalante [AM] 1254 The patient has been declined from [facility] due to her elevated LFT's. I spoke to her and shedenies any abdominal pain. She states she does not believe she has seen her PCP in several years. 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 She denies any history of IVDU. Will repeat LFT's [AM] 1602 Repeat LFT's improving. The patient has no abdominal pain. She is medically cleared [AM] Sat Feb 21, 2025 0707 Assumed care of this patient at change of shift. Patient has had significantly elevated liver function on today's visit as was last visit which is felt secondary to alcohol/drug use. Afebrile. No leukocytosis. It has been several years since patient last had abdominal imaging and will obtain an abdominal ultrasound to ensure no acute obstructive process and to aid in her medical clearance for psychiatric placement [SD] 0848 Liver function still elevated but improved when compared with yesterday. Ultrasound pending [SD] 1048 Ultrasound without acute findings. Patient medically cleared for psychiatric placement [SD] Sun Feb 22, 2025 1535 No acute events overnight. Will continue bed search [AM] Mon Feb 23, 2025 0715 Assumed care of this patient at change of shift. No significant events overnight. Vital stable. Compliant with medications. Continued section 12/bed search [SD] 0920 Patient seen by home therapy clinician. She was unwilling to participate in the interview this morning or complete safety planning. For this reason, she is obligated to a bed search [SD] ED Course User Index [AM] MILTON Hooper [SD] MILTON Ibrahim Clinical Impression 1. Agitation 2. Depression, unspecified depression type [F32.A] Disposion: Boarding Patient discussed with attending physician, Dr. Perez * MILTON Hooper - 02/22/2025 3:36 PM EDT Images from the original note were not included. ED Psych Progress Note Sticky Note Psych Handoff Reason for visit: SI Psych Hx: depression, alcohol Drugs/Alcohol: alcohol Section 12a: yes HES: IPLOC Suicide Level: low Medication Reconciliation complete:Yes Restraints/IM meds in last 24 hours: Yes. Droperidol, Versed, restraints Other information Was trying to check into [facility] But became very agitated when they asked for medical clearance. Here she was extremely agitated and yelling. Labs Pending for medical clearance 02-21-2025: Labs show downtrending liver function. Ultrasound without acute findings. Medically cleared for psychiatric placement Last edited by MILTON Ibrahim on 02/21/25 at 1050 Vitals Date and Time Temp Pulse Resp BP SpO2 User 02/22/25 1415 97.9 ??F (36.6 ??C) 54 18 107/70 97 % RK 02/22/25 0737 97.6 ??F (36.4 ??C) 67 18 103/61 94 % RK 02/21/25 2100 -- 50 16 99/62 94 % BA 02/21/25 1912 -- 56 -- 101/64 -- RK 02/21/25 1446 97.8 ??F (36.6 ??C) 58 16 105/66 96 % KD 02/21/25 0746 96.9 ??F (36.1 ??C) 50 16 109/71 96 % RK 02/21/25 0645 97.5 ??F (36.4 ??C) 51 pt sleeping/resting 14 101/65 97 % BA 02/20/25 1945 98.1 ??F (36.7 ??C) 58 16 106/67 96 % BA 02/20/25 1826 97.7 ??F (36.5 ??C) 70 15 102/67 99 % NR 02/20/25 1220 97.7 ??F (36.5 ??C) 69 -- 112/72 -- NR 02/20/25 0000 98.1 ??F (36.7 ??C) 75 16 145/96 98 % JT 02/19/25 2304 -- 73 16 97/61 95 % [place] 02/19/25 1955 97.6 ??F (36.4 ??C) 82 20 152/45 96 % [place] ED Course as of 02/22/25 1536 Fri Feb 20, 2025 0809 No acute events overnight. [AM] 0949 I spoke to Jocelyn from [facility] who felt criteria for IPLOC. Will initiate bed search [AM] 1159 The patient has been accepted to [facility] by Dr. Escalante [AM] 1254 The patient has been declined from [facility] due to her elevated LFT's. I spoke to her and shedenies any abdominal pain. She states she does not believe she has seen her PCP in several years. 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 She denies any history of IVDU. Will repeat LFT's [AM] 1602 Repeat LFT's improving. The patient has no abdominal pain. She is medically cleared [AM] Sat Feb 21, 2025 0707 Assumed care of this patient at change of shift. Patient has had significantly elevated liver function on today's visit as was last visit which is felt secondary to alcohol/drug use. Afebrile. No leukocytosis. It has been several years since patient last had abdominal imaging and will obtain an abdominal ultrasound to ensure no acute obstructive process and to aid in her medical clearance for psychiatric placement [SD] 0848 Liver function still elevated but improved when compared with yesterday. Ultrasound pending [SD] 1048 Ultrasound without acute findings. Patient medically cleared for psychiatric placement [SD] Annamarie Feb 22, 2025 1535 No acute events overnight. Will continue bed search [AM] ED Course User Index [AM] MILTON Hooper [SD] MILTON Ibrahim Clinical Impression 1. Agitation 2. Depression, unspecified depression type [F32.A] Disposion: Boarding Patient discussed with attending physician, Dr. Perez Cosigned by Michael Perez MD at 02/22/2025 3:47 PM EDT * MILTON Ibrahim - 02/21/2025 6:54 AM EDT Images from the original note were not included. ED Psych Progress Note Sticky Note Psych Handoff Reason for visit: SI Psych Hx: depression, alcohol Drugs/Alcohol: alcohol Section 12a: yes HES: IPLOC Suicide Level: low Medication Reconciliation complete:Yes Restraints/IM meds in last 24 hours: Yes. Droperidol, Versed, restraints Other information Was trying to check into [facility] But became very agitated when they asked for medical clearance. Here she was extremely agitated and yelling. Labs Pending for medical clearance 02-21-2025: Labs show downtrending liver function. Ultrasound without acute findings. Medically cleared for psychiatric placement Last edited by MILTON Ibrahim on 02/21/25 at 1050 Vitals Date and Time Temp Pulse Resp BP SpO2 User 02/21/25 0746 96.9 ??F (36.1 ??C) 50 16 109/71 96 % RK 02/21/25 0645 97.5 ??F (36.4 ??C) 51 pt sleeping/resting 14 101/65 97 % BA 02/20/25 1945 98.1 ??F (36.7 ??C) 58 16 106/67 96 % BA 02/20/25 1826 97.7 ??F (36.5 ??C) 70 15 102/67 99 % NR 02/20/25 1220 97.7 ??F (36.5 ??C) 69 -- 112/72 -- NR 02/20/25 0000 98.1 ??F (36.7 ??C) 75 16 145/96 98 % JT 02/19/25 2304 -- 73 16 97/61 95 % [place] 02/19/25 1955 97.6 ??F (36.4 ??C) 82 20 152/45 96 % [place] ED Course as of 02/21/25 1439 Fri Feb 20, 2025 0809 No acute events overnight. [AM] 0949 I spoke to Jocelyn from [facility] who felt criteria for IPLOC. Will initiate bed search [AM] 1159 The patient has been accepted to [facility] by Dr. Escalante [AM] 1254 The patient has been declined from [facility] due to her elevated LFT's. I spoke to her and shedenies any abdominal pain. She states she does not believe she has seen her PCP in several years. 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 She denies any history of IVDU. Will repeat LFT's [AM] 1602 Repeat LFT's improving. The patient has no abdominal pain. She is medically cleared [AM] Sat Feb 21, 2025 0707 Assumed care of this patient at change of shift. Patient has had significantly elevated liver function on today's visit as was last visit which is felt secondary to alcohol/drug use. Afebrile. No leukocytosis. It has been several years since patient last had abdominal imaging and will obtain an abdominal ultrasound to ensure no acute obstructive process and to aid in her medical clearance for psychiatric placement [SD] 0848 Liver function still elevated but improved when compared with yesterday. Ultrasound pending [SD] 1048 Ultrasound without acute findings. Patient medically cleared for psychiatric placement [SD] ED Course User Index [AM] MILTON Hooper [SD] MILTON Ibrahim Clinical Impression 1. Agitation 2. Depression, unspecified depression type [F32.A] Disposion: Boarding Patient discussed with attending physician, Dr. Perez * MILTON Johnson - 02/21/2025 6:20 AM EDT I was asked to see this patient by Belen Fink RN as there is been reported difficulties in getting the patient medically cleared for inpatient placement patient secondary to her abnormal labs. The patient has a prior medical history of alcohol abuse, reports historical IV drug use, reports history of cholecystectomy. The patient's laboratory workup has been abnormal, CMP obtained on ER presentation had gross elevations in liver enzymes/transaminitis with AST 785, ALT 358, ALP 215, total bilirubin was within normal limits at 0.2. The patient had repeat labs obtained yesterday which showed improvement but persistent transaminitis with AST 322, ALT 274, ALP 216. I examined the patient personally, she does appear to have hepatomegaly on exam, has some right upper quadrant tenderness to palpation. The patient also reports some nausea/vomiting. The patient's transaminitis may be related to alcohol use, however given her ongoing symptoms, and notable elevations, we will investigate this further. Given history of IV drug use, will order acutehepatitis panel, given right upper quadrant abdominal pain, will order ultrasound and I suspect underlying hepatic steatosis or cirrhosis, given safety concerns, will obtain acetaminophen levels. * Joao Morin - 02/20/2025 5:20 PM EDT Anitha Mcintosh has been faxed to the following facilities for review today: [facility], [facility], [facility], [facility], [facility], [facility], [facility], [facility] unable to accommodate tonight due to high LFTs, if pt is not placed tonight theyd like a repeat of labs to be done in order to review again in the morning. Bed Search 02/20/2025 * Andrew Sherman LCSW - 02/20/2025 11:55 AM EDT BED CANCELED D/T HIGH LFTS documented in this encounter Consult Notes * Olayinka Watson C[employer] WORKING SUPERVISOR - 02/25/2025 10:49 AM EDT Behavioral Health Initial Consult Report Patient: Anitha Mcintosh : 1965 Attending: Abigail Woodruff MD Admit Date: 02/19/2025 Today's Date: 02/25/2025 Current Time: 10:49 AM Consult Requested by: Hospitalist Service Reason for Consult: Med eval History of Present Illness and Reason for Hospitalization: Per initial ED note: Anitha Mcintosh is a 59 y.o. female who presents due to behavioral health issues. When I met the patient, she was screaming in the hallway and being restrained. She will Not provide any history to me. Nursing notes: Pt BIBA from the [facility]. Pt was not formally admitted to the [facility] d/t not having medical clearance. EMS reports confusion, reports pt was drinking a beer prior to them arriving. Pt continually made SI statements while at the CAB stating I want to . Pt arrives on a section 12. Pt, when I entered her room had a blanket over her head. After several requests, pt took blanket off of her head. Pt guarded and offered limited information. Medical History: Past Medical History[1] Past Surgical History[2] Psychiatric History: Noted hx of Depression and PTSD Home Medications: Prescriptions Prior to Admission[3] No results found for this or any previous visit (from the past 24 hours). Current Medications: Current Facility-Administered Medications[4] Laboratory: No results found for this or any previous visit (from the past 24 hours). Allergies: Patient has no known allergies. Substance Abuse History: ETOH dep @DRUGHISTORY@ Social History[5] Violent/Criminal History: none noted Social History: Marital Status: Single [1] Employment Status: Not Employed [3] Employer: Family History: Family History[6] Code Status: No Order Review of Systems: Patient's depressive symptoms include depressed mood, difficulty concentrating, impaired memory, and psychomotor retardation. Psychological ROS: positive for - concentration difficulties, depression, and memory difficulties Mental Status Exam: Appearance: stated age Perception:No AH/VH Behavior: cooperative, calm, and pleasant Speech: soft and slowed Language: intact Attention: intact Concentration: impaired Orientation: date, person, president Memory: impaired Fund of Knowledge: impaired Thought Process: circumstantial, minmal, and slowed Thought Content: No SI/Hi/Delusions/obsessions Mood: depressed Affect: constricted Judgment: limited Insight: limited Diagnosis: Alcohol Dependence and Mood Disorder NOS Assessment: This is a 59 yo female with noted hx of ETOH dep, Depression and PTSD who was sent to from detox d/t SI statements and recent agitation. I was asked to see the pt to adjust medications. At the time I met the pt she was guarded and offered very limited information. Pt did appear depressed and withdrawn. Suicide: Is this Consult for Suicidality? No C-SSRS Screening Since Last Contact (Low - 1 or 2, Mod - 3, High - 4, 5 or 6) [Ask questions 1, 2 and 6. If YES to 2, ask questions 3, 4, 5, and 6] 1. Have you wished you were or wished you could go to sleep and not wake up? no 2. Have you actually had any thoughts of killing yourself? no 3. Have you been thinking about how you might do this? no 4. Have you had these thoughts and had some intention of acting on them? no 5. Have you started to work out or worked out the details of how to kill yourself and do you intendto carry out this plan? no 6. Have you done anything, started to do anything, or prepared to do anything to end your life? no Suicide Risk Assessment: The patient's risk factors include age > 50, recent or past impulsivity, diagnosis of major mental illness or personality disorder, and alcohol/substance abuse, intoxication or withdrawal. The patient's protective factors include identifies reason for living, supportive family or social network, hopefulness, future-orientation, and housing. Suicide Risk Level: Based on a review of the risk and protective factors and on the clinical interview, I believe that: The patient's acute risk of suicide is Moderate. Management of Suicide Risk: Because the patient does not have active suicidal ideation, plan or intent, the patient is willing to get help if unable to maintain his/her safety in the community, and the risks of treatment in thecommunity outweighs its benefits, the patient will be further assessed for psychiatric inpatient level of care. Access to Weapons: No Recommendation/Plan: I add Zyprexa 5 mg q 8 hrs PRN paranoia I add Neurontin 200 mg q 6 hrs PRN anxiety If receiving antipsychotic medication: Hold antipsychotic for QTc > 500 ms. Maintain K>4 and Mag> 2. Discussed With Medical Team: I MILTON Jay in the ED caring for pt Time Spent: 35 minutes Signed by: Olayinka Watson NP 02/25/2025 [1] No past medical history on file. [2] No past surgical history on file. [3] (Not in a hospital admission) [4] Current Facility-Administered Medications Medication atorvaSTATin (LIPITOR) tablet 20 mg cloNIDine (CATAPRES) tablet 0.1 mg famotidine (PEPCID) tablet 40 mg FLUoxetine (PROzac) capsule 40 mg levothyroxine (SYNTHROID, LEVOXYL) tablet 88 mcg OLANZapine (ZyPREXA) tablet 10 mg pantoprazole (PROTONIX) DR tablet 40 mg traZODone (DESYREL) tablet 50 mg [5] [6] No family history on file. Cosigned by Esteban Iqbal MD at 02/26/2025 1:55 PM EDT * Jocelyn Ackerman - 02/20/2025 10:00 AM EDT Behavioral Health Crisis Consult - Initial Assessment Patient: Anitha Mcintosh : 1965 Admit Date: 02/19/2025 Date of Consult: 02/20/2025 Time of Consult: 10:00 AM Consult Requested by: Mindi Thomas MD Reason for Consult: Chief Complaint Patient presents with Behavioral Health History of Present Illness: Patient is a 59 y.o. female with past medical and psychiatric history as listed who presented to the hospital on 02/19/2025 for Behavioral Health. Behavioral Health is consulted for SI statements. Anitha Mcintosh is a 59 year old female with hx of anxiety, depression, SI and attempt and alcohol abuse presenting to [facility] ED on section 12 for SI from [facility]. Medical History: has no past medical history on file. has no past surgical history on file. Psychiatric History: History of psychiatric illness?: Yes History of suicidal ideation?: Yes History of non-suicidal self injury?: No History of interpersonal aggression?: No History of past JAMAL?: Yes Treatment History?: Yes Inpatient Treatment:: Inpatient Psych Outpatient Treatment:: Outpatient Psychopharm Current Providers?: No Collateral Contact: No Explain:: Attempted friend Brisa , and Mother , [facility] Home Medications: Prescriptions Prior to Admission[1] Current Medications: Scheduled Medications[2] Current PRN: PRN Medications[3] Allergies: Patient has no known allergies. Substance Use History Alcohol: Substance and Sexual Activity Alcohol Use None In the past 12 months,have you had 5 or more drinks(men)/4 or more drinks (women) containing alcohol in one day?: No Tobacco: has no history on file for tobacco use. Other: has no history on file for drug use. Prescription Medications: In the past 12 months,have you used any prescription medications just for the feeling, more than prescribed or that were no prescribed for you?: No Substances: In the past 12 months, have you used any drugs?: No Medical and Psychiatric Consequences: Medical/Psychiatric Consequences:: None Psychosocial Consequences: Psychosocial consequences:: None Social History: Currently homeless, per pt account. Unknown last residence, pt states she does not know. Per record review long hx of unstable housing. Socioeconomic History Marital status: Single Employment Status: Not Employed Type of Residence: Homeless Children?: (Unknown) Legal Issues (*Add to Legal History Navigator): Other (Comment) (Unknown) History: History Reading status: No Personal History: has no history on file for sexual activity. Family History: Family History[4] Physical Exam: Patient Vitals for the past 24 hrs: BP Temp Temp src Pulse Resp SpO2 Height Weight 02/20/25 0000 (!) 145/96 98.1 ??F (36.7 ??C) Temporal 75 16 98 % -- -- 02/19/25 2304 97/61 -- -- 73 16 95 % -- -- 02/19/252035 -- -- -- -- -- -- 1.651 m (5' 5 ) 77.1 kg (170 lb) 02/19/251954 (!) 152/45 97.6 ??F (36.4 ??C) -- 82 20 96 % -- -- Mental Status Exam: Mental Status Exam General Appearance: Appears older than stated age, disheveled and mild distress. Level of Consciousness: Lethargic. Orientation: Oriented to person. Attitude and Behavior: Disinhibited and disengaged. Eye Contact: Eye contact avoidant. Speech: Slow and soft. Language: Normal. Affect: Depressed and flat. Thought Process and Associations: Goal directed. Thought Content: Positive for suicidal ideation. No suicidal plan, no self-injurious ideation, no homicidal ideationand not actively hallucinating. Attention Span: Poor. Memory: Abnormal recent memory and abnormal remote memory. Fund of Knowledge: Decreased knowledge of recent events. Cognition: Appropriate for developmental age. Insight: Poor. Judgment: Poor. Labs, Imaging & Other Studies: Laboratory: Recent lab results have been reviewed and are notable for Results for orders placed or performed during the hospital encounter of 02/19/25 (from the past 24 hours) Drug Screen, Urine Result Value Ref Range 6-Aceytlmorphine Screen, Urine Negative Negative Amphetamines Screen, Urine Negative Negative Barbiturates Screen, Urine Negative Negative Benzodiazepine Screen, Urine Negative Negative Buprenorphine Screen, Urine Negative Negative Cannabinoids Screen, Urine Negative Negative Cocaine Metabolite Screen, Urine Negative Negative Ethanol Screen, Urine Positive (A) Negative Fentanyl Screen, Urine Negative Negative Methadone Screen, Urine Negative Negative Opiates Screen, Urine Negative Negative Oxycodone Screen, Urine Negative Negative Tramadol Screen, Urine Negative Negative Creatinine, Jim Urine 23.0 >=15.0 mg/dL Comprehensive Metabolic Panel Result Value Ref Range Sodium 140 135 - 146 mmol/L Potassium 4.1 3.4 - 5.2 mmol/L Chloride 107 98 - 110 mmol/L Total CO2/Bicarbonate 21 (L) 24 - 32 mmol/L Anion Gap 12 2 - 15 mmol/L BUN 10 7 - 24 mg/dL Creatinine, Blood 0.80 0.50 - 1.10 mg/dL Glucose, Blood 97 50 - 100 mg/dL Calcium 8.3 (L) 8.5 - 10.5 mg/dL Total Protein 6.0 (L) 6.2 - 8.2 g/dL Albumin, Blood 3.5 3.4 - 5.2 g/dL Globulin Result 2.5 2.0 - 4.0 g/dL AST (SGOT) 785 (H) 11 - 40 U/L ALT (SGPT) 358 (H) 5 - 35 U/L Alkaline Phosphatase 215 (H) 30 - 115 U/L Total Bilirubin 0.2 0.2 - 1.2 mg/dL Estimated GFR(CKD-EPI) 80 >=60 mL/min/BSA CBC and Differential Result Value Ref Range WBC 4.18 4.00 - 11.00 K/uL RBC 4.02 4.00 - 5.20 M/uL Hemoglobin 11.7 (L) 12.0 - 15.0 g/dL Hematocrit 37.4 36.0 - 45.0 % MCH 29.1 23.0 - 37.0 pg MCHC 31.3 29.0 - 38.0 g/dL MCV 93 82 - 98 fL RDW 13.0 11.5 - 14.5 % Platelet Count 226 150 - 450 K/uL MPV 11.3 6.0 - 14.0 fL Neutrophil 44.3 % Lymphocyte 41.1 % Monocyte 10.8 % Eosinophil 2.6 % Basophil 1.0 % Immature Granulocyte ([place], Myelo, Promyelocyte) 0.2 % Absolute Neutrophil Count 1.85 1.50 - 7.70 K/uL Absolute Immature Granulocyte ([place], Myelo, Promyelocyte) 0.01 0.00 - 0.09 K/uL Absolute Lymphocyte Count 1.72 1.50 - 4.00 K/uL Absolute Monocyte Count 0.45 0.16 - 1.26 K/uL Absolute Eosinophil Count 0.11 (L) 0.15 - 0.30 K/uL Absolute Basophil Count 0.04 0.00 - 0.21 K/uL EKG: No studies were reviewed. C-SSRS Screener and SAFE-T: [place] Suicide Severity Rating Scale (C-SSRS) Screener Incomplete C-SSRS?: Pt refused 1) In the past month, have you wished you were or wished you could go to sleep and not wake up?: Yes 2) In the past month, have you actually had any thoughts of killing yourself?: No (Multiple Si statements) 6a.) Have you ever done anything, started to do anything, or prepared to do anything to end your life?: No C-SSRS Screener Risk Level: Low History of Psychiatric Diagnosis:: Alcohol/Substance Use Disorder, Anxiety disorder/PTSD Presenting Symptoms: Anxiety and/or panic Family History: None Precipitants/ Stressors/ Interpersonal: Homelessness, Recent substance intoxication or withdrawal Change in Treatment: Non-compliant with treatment, Not receiving treatment Step 2: Identify Protective Factors (Protective factors may not counteract significant acute suicide risk factors) Internal Protective Factors: None External Protective Factors: None Step 3: Specific questioning about Thoughts, Plans, and Suicidal Intent - (see Step 1 for Ideation Severity and Behavior) In the past 1 month, how many times have you had these thoughts?: Once a week In the past 1 month, when you have the thoughts, how long do they last?: Less than 1 hour/some of the time In the past 1 month, could/can you stop thinking about killing yourself or wanting to if you want to?: Unable to control thoughts In the past 1 month, are there things - anyone or anything (e.g., family, caodaism, pain of ) - that stopped you from wanting to or acting on thoughts of suicide?: Does not apply In the past 1 month, what reasons did you have for thinking about wanting to or killing yourself? Was it to end the pain or stop the way you were feeling, or was it to get attention, revenge, or reaction from others? Or both?: Equally to get attention, revenge or reaction from others Suicidal Ideation Intensity Total Score: 12 Step 4: Guidelines to Determine Level of Risk and Develop Interventions to LOWER Risk Level Suicide Risk Level Determined by the Clinician : Moderate Suicide Risk Rationale for Suicide Risk Level: Multiple risk factors, SI statements with intent, hx of SI and SA Management of Suicide Risk: Because the risks of treatment in the community outweighs its benefits, the patient will be furtherassessed for psychiatric inpatient level of care Assessment: Anitha Mcintosh is a 59 year old female with hx of anxiety, depression, SI and attempt and alcohol abuse presenting to [facility] ED on section 12 for SI from [place] [facility]. Pt reportedly made SIstatements at the facility, repeatedly stating on arrival to the ED I want to . Pt was restrained at the facility and on early arrival to the ED. Of note, pt denies alcohol abuse despite a positive ethanol level. Pt is now calm, and medically clear for assessment. Pt endorses increased depression in context of many life stressors. She tells me that her mother is dying currently. Pt cat is also currently in the skilled nursing. Pt states that she has had two strokes in her lifetime, making it difficult for her to remember things. Pt is unable to tell me where [place], [place] [facility]. Pt states she doesn't know why she was at [facility], but denies seeking detox. When asked if pt drinks daily, she denies. She reports she is sober currently. Pt also reports historical sobriety at one point of 10 years. She states that she keeps going to multiple programs, they keep telling me it's not a good fit. Pt minimally engaged in assessment and requires a lot of prompting with questions. Pt repeatedly puts the blanket over her head, declines to engage, or states she doesn't know the answer to questions. Pt does endorse that she is depressed with passive SI. Declines plan or intent at this time. Per extensive record review pt does have a hx of SI with SA. She does have a hx of multiple inpatient hospitalizations for her mental health and alcohol abuse. Pt does not appear to be a reliable historian at this time. Pt provides her friend Brisa for collateral , t/w called multiple times and left vm. Also reviewed record and contacted pt mother Lia [phone]. Neither returned call at time of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 Blood 3.5 3.4 - 5.2 g/dL 02/20/2025 2:41 AM EDT [facility] Globulin Result 2.5 2.0 - 4.0 g/dL 02/20/2025 2:41 AM EDT [facility] AST (SGOT) 785(H) 11 - 40 U/L 02/20/2025 2:41 AM EDT [facility] ALT (SGPT) 358(H) 5 - 35 U/L 02/20/2025 2:41 AM EDT [facility] Alkaline Phosphatase 215(H) 30 - 115 U/L 02/20/2025 2:41 AM EDT [facility] Total Bilirubin 0.2 0.2 - 1.2 mg/dL 02/20/2025 2:41 AM EDT [facility] Estimated GFR(CKD-EPI) 80 >=60 mL/min/BSA 02/20/2025 2:41 AM EDT [facility] Blood PERIPHERAL BLOOD SPECIMEN / Unknown Venipuncture / Unknown 02/20/2025 1:55 AM EDT 02/20/2025 1:55 AM EDT Abigail Woodruff MD LAB BLOOD ORDERABLES Final Re sult [facility] [address] [place] [address] * ECG 12 lead, to be obtained, other indication (02/20/2025 1:13 AM EDT) Ventricular Heart Rate 68 BPM EKG [facility] Atrial Heart Rate 68 BPM EKG [facility] IL Interval 200 ms EKG [facility] QRSD Interval 88 ms EKG [facility] QT Interval 418 ms EKG [facility] QTC Interval 444 ms EKG [facility] P [place] 64 degrees EKG [facility] R [place] 9 degrees EKG [facility] T Wave [place] 53 degrees EKG B[facility] MUSE 02/20/2025 1:13 AM EDT 02/20/2025 8:27 AM EDT Narrative EKG ANGELIQUE BRENNA[facility] - 02/20/2025 8:27 AM EDT Normal sinus rhythm Nonspecific ST and T wave abnormality Abnormal ECG Confirmed by Sofía Mejia ([id number]) on 02/20/2025 8:27:38 AM Procedure Note Sofía Pérez MD - 02/20/2025 Normal sinus rhythm Nonspecific ST and T wave abnormality Abnormal ECG Confirmed by Sofía Mejia ([id number]) on 02/20/2025 8:27:38 AM Abigail Woodruff MD ECG ORDERABLES Final Result EKG ANGELIQUE BRENNAN [address] [place] [id number] * (ABNORMAL) Drug Screen, Urine (02/19/2025 10:03 PM EDT) 6-Aceytlmorphine Screen, Urine Negative Negative 02/19/2025 10:57 PM EDT [facility] Comment:Add on order [id number] Opiates and Oxycodone, Urine, Confirmation, if confirmation desired. Amphetamines Screen, Urine Negative Negative 02/19/2025 10:57 PM EDT [facility] Comment: Screen for Amphetamine, Metamphetamine or other Amphetamine-like compounds. Add-on order [id number] Amphetamine, Urine, Confirmation if confirmation desired. Barbiturates Screen, Urine Negative Negative 02/19/2025 10:57 PM EDT [facility] Comment:Add-on order [id number] Barbiturate, Urine, Confirmation if confirmation desired. Benzodiazepine Screen, Urine Negative Negative 02/19/2025 10:57 PM EDT [facility] Comment: Add-on order [id number] Benzodiazepine, Urine, Confirmation if confirmation desired. Buprenorphine Screen, Urine Negative Negative 02/19/2025 10:57 PM EDT [facility] Comment:Add-on order [id number] Buprenorphine, Urine, Confirmation if confirmation desired. Cannabinoids Screen, Urine Negative Negative 02/19/2025 10:57 PM EDT [facility] Comment:Add-on order [id number] Cannabinoids, Urine, if confirmation desired. Cocaine Metabolite Screen, Urine Negative Negative 02/19/2025 10:57 PM EDT [facility] Comment:Add-on order [id number] Cocaine, Urine, Confirmation if confirmation desired. Ethanol Screen, Urine Positive(A) Negative 02/19/2025 10:57 PM EDT [facility] Fentanyl Screen, Urine Negative Negative 02/19/2025 10:57 PM EDT [facility] Comment:Add-on order [id number] Fentanyl Confirmation, Urine, if confirmation desired. Methadone Screen, Urine Negative Negative 02/19/2025 10:57 PM EDT [facility] Comment:Add order [id number] Me thadone, Urine, Confirmation if confirmation desired. Opiates Screen, Urine Negative Negative 02/19/2025 10:57 PM EDT [facility] Comment: Screen for Morphine, Codeine, Hyrdocodone, Hydromorphone, or other Morphine- related opiates. Add on order [id number] Opiates and Oxycodone, Urine, Confirmation if confirmation desired. Oxycodone Screen, Urine Negative Negative 02/19/2025 10:57 PM EDT [facility] Comment:Add-on order [id number] Opiates and Oxycodone, Urine, Confirmation if confirmation desired. Tramadol Screen, Urine Negative Negative 02/19/2025 10:57 PM EDT [facility] Comment:Add-on order [id number] Tramadol Confirmation, Urine, if confirmation desired. Creatinine, Jim Urine 23.0 >=15.0 mg/dL 02/19/2025 10:57 PM EDT [facility] Urine URINE SPECIMEN / Unknown Collection / Unknown 02/19/2025 10:03 PM EDT 02/19/2025 10:28 PM EDT [facility] - 02/19/2025 10:57 PM EDT These tests are for screening purposes only and should only be used for medical purposes. The cutoff concentrations for determining a positive result are as follows: 6-Acetylmorphine 10 ng/mL 6-acetylmorphine Amphetamines 1000 ng/mL d-methamphetamine Barbiturates 200 ng/mL secobarbital Benzodiazepines 200 ng/mL nordiazepam Buprenorphine 5 ng/mL norbuprenorphine Cannabinoids 50 ng/mL COOH-THC Cocaine 300 ng/mL benzoylecgonine Ethanol 20 mg/dL ethanol Fentanyl 5 ng/mL norfentanyl Methadone 300 ng/mL methadone Opiates 300 ng/mL morphine Oxycodone 100 ng/mL oxycodone Tramadol 200 ng/mL tramadol False negative and false positive results may occur due to cross-reactivity, patient medications or sample adulteration. If the validity of these results is uncertain, confirmatory testing can be done upon specific request. us Abigail Woodruff MD URINE ORDERABLES Final Result [facility] [address] [place] [address] documented in this encounter Visit Diagnoses Diagnosis Agitation- Primary Other and unspecified special symptom or syndrome, not elsewhere classified Depression, unspecified depression type [F32.A] Major depressive disorder with single episode, remission status unspecified documented in this encounter Administered Medications Inactive Administered Medications - up to 3 most recent administrations Medication Order MAR Action Action Date Dose Rate Site acetaminophen (TYLENOL) tablet 650 mg 650 mg, Oral, Every 6 hours PRN, Starting on Maria G 02/26/25 at 2117, Until Sun02/27/25 at 1547, mild (1-3) pain, moderate (4-6) pain Given 02/26/2025 9:24 PM EDT 650 mg atorvaSTATin (LIPITOR) tablet 20 mg 20 mg, Oral, Daily, First dose on Sun02/20/25 at 1038, Until Discontinued Given 02/26/2025 8:59 AM EDT 20 mg Given 02/25/2025 9:21 AM EDT 20 mg Given 02/24/2025 10:17 AM EDT 20 mg benzocaine (ORAJEL) 20 % jelly Mouth/Throat, 3 times daily PRN, mild (1-3) pain, Starting on 02/21/25 at 1600, For 1 day Given 02/21/2025 4:42 PM EDT 1 Application benzocaine (ORAJEL) 20 % jelly Mouth/Throat, 4 times daily PRN, mild (1-3) pain, Starting on 02/22/25 at 2133 Given 02/27/2025 12:19 PM EDT 1 Application Given 02/26/2025 9:24 PM EDT Given 02/24/2025 11:08 PM EDT 1 Application cloNIDine (CATAPRES) tablet 0.1 mg 0.1 mg, Oral, 4 times daily, First dose on Sun02/20/25 at 1400, Until Discontinued, On hold since Sun02/26/2025 at 0840 until manually unheld Given 02/25/2025 9:38 PM EDT 0.1 mg Given 02/23/2025 9:01 PM EDT 0.1 mg Given 02/23/2025 3:12 PM EDT 0.1 mg droPERidol (INAPSINE) injection 5 mg 5 mg, Intramuscular, Once, 1 dose, On Sun02/19/25 at 1959 Given 02/19/2025 8:02 PM EDT 5 mg Left Anterior Thigh famotidine (PEPCID) tablet 40 mg 40 mg, Oral, Daily, First dose on Sun02/20/25 at 1038, Until Discontinued Given 02/26/2025 8:59 AM EDT 40 mg Given 02/25/2025 9:19 AM EDT 40 mg Given 02/24/2025 10:17 AM EDT 40 mg FLUoxetine (PROzac) capsule 40 mg 40 mg, Oral, Daily, First dose on Sun02/20/25 at 1038, Until Discontinued Given 02/26/2025 8:59 AM EDT 40 mg Given 02/25/2025 9:20 AM EDT 40 mg Given 02/24/2025 10:17 AM EDT 40 mg gabapentin (NEURONTIN) capsule 200 mg 200 mg, Oral, Every 6 hours PRN, Starting on Sun02/25/25 at 1104, Until Sun02/27/25 at 1547, anxiety ibuprofen (ADVIL,MOTRIN) tablet 600 mg 600 mg, Oral, Once, 1 dose, On 02/21/25 at 1603 Given 02/21/2025 4:42 PM EDT 600 mg levothyroxine (SYNTHROID, LEVOXYL) tablet 88 mcg 88 mcg, Oral, Daily (thyroid, PPIs, heparin flush), First dose on Sun02/20/25 at 1038, Until Discontinued Given 02/27/2025 6:59 AM EDT 88 mcg Given 02/25/2025 6:08 AM EDT 88 mcg Given 02/24/2025 6:22 AM EDT 88 mcg LORazepam (ATIVAN) tablet 1 mg 1 mg, Oral, Every 6 hours, 4 doses, First dose on Sun02/20/25 at 0954, Last dose on Sun02/21/25 at 0354 Given 02/20/2025 9:11 PM EDT 1 mg Given 02/20/2025 10:38 AM EDT 1 mg melatonin tablet 3 mg 3 mg, Oral, At bedtime as needed, Starting on Sun02/26/25 at 2256, Until Sun02/27/25 at 1547, insomnia midazolam (VERSED) injection 2 mg 2 mg, Intramuscular, Once, 1 dose, On Sun02/19/25 at 1959 Given 02/19/2025 8:03 PM EDT 2 mg Right Anterior Thigh nicotine polacrilex (NICORETTE) gum 2 mg 2 mg, Buccal, Every 1 hour PRN, Starting on Sun02/20/25 at 1314, Until Sun02/27/25 at 1547, smoking cessation Given 02/20/2025 1:15 PM EDT 2 mg OLANZapine (ZyPREXA ZYDIS) disintegrating tablet 5 mg 5 mg, Oral, Every 8 hours PRN, Starting on Sun02/25/25 at 1103, Until Sun02/27/25 at 1547, Paranoia OLANZapine (ZyPREXA) tablet 10 mg 10 mg, Oral, At bedtime, First dose on Sun02/20/25 at 2100, Until Discontinued Given 02/26/2025 8:58 PM EDT 10 mg Given 02/25/2025 9:38 PM EDT 10 mg Given 02/24/2025 9:52 PM EDT 10 mg ondansetron (ZOFRAN-ODT) disintegrating tablet 4 mg 4 mg, Oral, Once, 1 dose, On Sun02/21/25 at 0629 Given 02/21/2025 6:39 AM EDT 4 mg pantoprazole (PROTONIX) DR tablet 40 mg 40 mg, Oral, Daily (thyroid, PPIs, heparin flush), First dose on Sun02/20/25 at 1038, Until Discontinued Given 02/27/2025 6:59 AM EDT 40 mg Given 02/25/2025 6:08 AM EDT 40 mg Given 02/24/2025 6:22 AM EDT 40 mg traZODone (DESYREL) tablet 50 mg 50 mg, Oral, 2 times daily, First dose on Sun02/20/25 at 1038, Until Discontinued Given 02/25/2025 9:38 PM EDT 50 mg Given 02/25/2025 9:21 AM EDT 50 mg Given 02/24/2025 9:52 PM EDT 50 mg documented in this encounter Active and Recently Administered Medications Times are shown in EDT. Scheduled Medication Order 02/25/2025 02/26/2025 02/27/2025 atorvaSTATin (LIPITOR) tablet 20 mg 20 mg, Oral, Daily, First dose on Sun02/20/25 at 1038, Until Discontinued 0921 (Given - Provider: Bassam Lazo RN) 0859 (Given - Provider: Yasmin Mcmahan, MIRIAM) 0833 (Not Given - Provider: Idalmis Talavera RN - Reason: Patient Refused) cloNIDine (CATAPRES) tablet 0.1 mg 0.1 mg, Oral, 4 times daily, First dose on Sun02/20/25 at 1400, Until Discontinued, On hold since Sun02/26/2025 at 0840 until manually unheld 0805 (Not Given - Provider: Bassam Lazo RN - Reason: Contraindicated - Comment: HR in the low 50s)1331 (Not Given - Provider: Idalmis Talavera RN - Reason: Contraindicated - Comment: Low bp/hr)1725 (Not Given - Provider: Idalmis Talavera RN - Reason: Contraindicated - Comment: Low BP)2138 (Given - Provider: Belen Fink RN) 0840 (Held by provider - Provider: MILTON Ibrahim - Reason: Abnormal Vitals)0900 (Dose Auto Held - Provider: MILTON Ibrahim)1400 (Dose Auto Held - Provider: MILTON Ibrahim)1800 (Dose Auto Held - Provider: MILTON Ibrahim)2200 (Dose Auto Held - Provider: MILTON Ibrahim) 0900 (Dose Auto Held - Provider: MILTON Ibrahim)1547 (Unheld by provider - Provider: Automatic Discharge Provider) diphenhydrAMINE (BENADRYL) capsule 50 mg 50 mg, Oral, Once, 1 dose, On Sun02/26/25 at 2258 0507 (Not Given - Provider: Zeina Caicedo RN - Reason: Other - Indicate below - Comment: pt was sleeping) famotidine (PEPCID) tablet 40 mg 40 mg, Oral, Daily, First dose on Sun02/20/25 at 1038, Until Discontinued 0919 (Given - Provider: Bassam Lazo RN) 0859 (Given - Provider: Yasmin Mcmahan, RN) 0833 (Not Given - Provider: Idalmis Talavera, RN - Reason: Patient Refused) FLUoxetine (PROzac) capsule 40 mg 40 mg, Oral, Daily, First dose on Sun02/20/25 at 1038, Until Discontinued 09 (Given - Provider: Bassam Lazo RN) 0859 (Given - Provider: Yasmin Mcmahan, MIRIAM) 0833 (Not Given - Provider: Idalmis Talavera RN - Reason: Patient Refused) levothyroxine (SYNTHROID, LEVOXYL) tablet 88 mcg 88 mcg, Oral, Daily (thyroid, PPIs, heparin flush), First dose on Sun02/20/25 at 1038, Until Discontinued 06 (Given - Provider: Belen Fink RN) 06 (Not Given - Provider: Belen Fink RN - Reason: Patient Refused) 0659 (Given - Provider: Zeina Caicedo RN) OLANZapine (ZyPREXA) tablet 10 mg 10 mg, Oral, At bedtime, First dose on Sun02/20/25 at 2100, Until Discontinued 2137 (Given - Provider: Belen Fink RN) 2057 (Given - Provider: Zeina Caicedo RN) pantoprazole (PROTONIX) DR tablet 40 mg 40 mg, Oral, Daily (thyroid, PPIs, heparin flush), First dose on Sun02/20/25 at 1038, Until Discontinued 06 (Given - Provider: Belen Fink RN) 0631 (Not Given - Provider: Belen Fink RN - Reason: Patient Refused) 0659 (Given - Provider: Zeina Caicedo RN) traZODone (DESYREL) tablet 50 mg 50 mg, Oral, 2 times daily, First dose on Sun02/20/25 at 1038, Until Discontinued 0921 (Given - Provider: Bassam Lazo RN)213 (Given - Provider: Belen Fink RN) 0845 (Not Given - Provider: Yasmin Mcmahan RN - Reason: Abnormal Vitals - Comment: BP 88/50 HR 49)2106 (Not Given - Provider: Zeina Caicedo RN - Reason: Other - Indicate below - Comment: Abormal BP) 0938 (Not Given - Provider: Idalmis Talavera RN - Reason: Patient Refused) PRN Medication Order 02/25/2025 02/26/2025 02/27/2025 acetaminophen (TYLENOL) tablet 650 mg 650 mg, Oral, Every 6 hours PRN, Starting on Maria G 02/26/25 at 2117, Until Sun02/27/25 at 1547, mild (1-3) pain, moderate (4-6) pain 2123 (Given - Provider: Zeina Caicedo RN) benzocaine (ORAJEL) 20 % jelly Mouth/Throat, 4 times daily PRN, mild (1-3) pain, Starting on Sun02/22/25 at 2133 2123 (Given - Provider: Zeina Caicedo RN) 121 (Given - Provider: Yasmin Mcmahan RN) gabapentin (NEURONTIN) capsule 200 mg 200 mg, Oral, Every 6 hours PRN, Starting on Sun02/25/25 at 1104, Until Sun02/27/25 at 1547, anxiety hydrOXYzine HCL (ATARAX) tablet 25 mg 25 mg, Oral, 4 times daily PRN, Starting on Sun02/20/25 at 1035, Until Sun02/27/25 at 1547, anxiety melatonin tablet 3 mg 3 mg, Oral, At bedtime as needed, Starting on Maria G 02/26/25 at 2256, Until Sun02/27/25 at 1547, insomnia nicotine polacrilex (NICORETTE) gum 2 mg 2 mg, Buccal, Every 1 hour PRN, Starting on Sun02/20/25 at 1314, Until Sun02/27/25 at 1547, smoking cessation OLANZapine (ZyPREXA ZYDIS) disintegrating tablet 5 mg 5 mg, Oral, Every 8 hours PRN, Starting on Sun02/25/25 at 1103, Until Sun02/27/25 at 1547, Paranoia documented in this encounter Care Teams Spa Director Relationship Specialty Start Date End Date Sadi Mott [address] [place] [id number] PCP - General 02/19/25 documented as of this encounter
--- OUTSIDE RECORDS SUMMARY | 2025-02-27 16:37 | XMS_ITS | Encounter Summary ---
Author Organization [facility] Address [address] [place] [address] Care Team Providers Care Substance Abuse Clinician Name Role Phone Sadi Mott MD Primary Care Provider [phone] Encounter Details Date Type Department Care Team (Late st Contact Info) Description 12/05/2024 Procedure Pass [facility] - Replaced by [facility] [address] [place] [address] Social History Tobacco Use Types Packs/Day Years Used Date Smoking Tobacco: Every Day Cigarettes Alcohol Use Standard Drinks/Week Comments Not Currently 0 (1 standard drink = 0.6 oz pur e alcohol) Housing Stability - SDOH Screener Answer Date Recorded What is your living situation today? Unsteady ho using 12/05/2024 Do you need help with Housing/Detention resources? Not on file 12/05/2024 Patient indicated no issues from the most recent SDOH questionnaire Not on file 12/05/2024 Homeless diagnosis active in problem list or in an encounter in the past year? Not on file 12/05/2024 Transportation - SDOH Screener Answer D ate Recorded Do you have trouble getting transportation to medical appointments? No 12/05/2024 Do you need help with Transp ortation to medical appointments? Not on file 12/05/2024 Patient indicated no issues from the most recent SDOH questionnaire Not on file 12/05/2024 Food Insecurity - SDOH Screener Answer Date Recorded Within the past 12 months, t he food you bought just didn't last and you didn't have money to get more? Never true 12/05/2024 Within the past 12 months, y ou worried whether your food would run out before you got money to buy more? Never true 2024 Do you need help with Food resources? Not on clau e 12/05/2024 Patient indicated no issues from the most recent SDOH questionnaire Not on file 12/05/2024 Utilities - SDOH Screener Answer Date R ecorded Do you have trouble paying y our heating and/or electricity bill? No 12/05/2024 Do you need help with Utilities? Not on file 12/05/2024 Patient indicated no issues from the most recent SDOH questionnaire Not on file 12/05/2024 Comments No Sex and Gender Information Value Date Recorded Sex Assigned at Female 04/08/2024 10:14 AM EDT Legal Sex Female 1:43 PM EDT Gender Identity Female 04/08/2024 10:14 AM EDT Sexual Orientation Straight 04/08/2024 10 :14 AM EDT documented as of this encounter Plan of Treatment Upcoming Encounters Date Type Department Care Team (Late st Contact Info) Description 03/11/2025 1:30 PM EDT Office Visit [facility] [address] [facility], [address] [place] [phone] Sailaja Brooke NP [address] [place] [address] documented as of this encounter Visit Diagnoses Not on filedocumented in this encounter Care Teams Substance Abuse Clinician Relationship Specialty Start Date End Date Sadi Mott MD [address] [facility] [address] [place] [address] PCP - General Internal Medicine 03/26/23 documented as of this encounter
--- OUTSIDE RECORDS SUMMARY | 2025-02-27 16:37 | XMS_ITS | Clinical Summary ---
Author Organization [facility] Address [address] [place] [address] Care Team Providers Care Cardiac Cath Lab Manager Name Role Phone Sadi Mott MD Primary Care Provider [phone] Allergies No known active allergies Medications atorvastatin 20 MG tablet Take 1 tablet (20 mg total) by mouth at bedtime 04/26/20 23 Active cholecalciferol ([place]wood VITAMIN D3) 50 mcg (2000 units) capsule Take 1 capsule (2,000 Units total) by mouth daily Active FLUoxetine 40 MG capsule Take 1 capsule (40 mg total) by mouth daily 10/29/19 25 Active levothyroxine (SYNTHROID) 88 MCG tablet Take 1 tablet (88 mcg total) by mouth daily @ 6 AM 05/10/20 23 Active OLANZapine 10 MG tablet Take 1 tablet (10 mg total) by mouth at bedtime 05/10/20 23 Active guaiFENesin (MucINEX) 600 MG extended release tablet Take 1 tablet (600 mg total) by mouth 2 (two) times a day Active multiple vitamins (multivitamin) tablet Take 1 tablet by mouth daily @ 8AM Active naltrexone (REVIA) 50 MG tablet Take 1 tablet (50 mg total) by mouth every morning Active Lactobacillus (PROBIOTIC ACIDOPHILUS) capsule Take 1 capsule by mouth daily In the AM Active thiamine (VITAMIN B-1) 100 MG tablet Take 1 tablet (100 mg total) by mouth daily Active acetaminophen 325 MG tablet Take 2 tablets (650 mg total) by mouth every 4 (four) hours as needed for fever, mild pain (1-3), headaches or moderate pain (4-6) Do not exceed 6 doses in 24 hour period Active albuterol sulfate 108 (90 Base) MCG/ACT (PROVENTIL HFA) inhalation aerosol Inhale 1 puff every 6 (six) hours as needed for wheezing or shortness of breath Active alum & mag hydroxide simethicone [id number] mg/30 mL oral suspension Take 30 mL by mouth as needed For gastric upset. Not to exceed 4 doses in 24 hours Active diphenhydrAMINE 25 mg capsule Take 2 capsules (50 mg total) by mouth at bedtime as needed for sleep May give with melatonin Active bismuth subsalicylate 262 mg/15 mL oral suspension Take 30 mL (524 mg total) by mouth every 6 (six) hours as needed For abdominal distress Active cloNIDine (CATAPRES) 0.1 MG tablet Take 1 tablet (0.1 mg total) by mouth every 4 (four) hours as needed for anxiety Hold for HP 90/60 or pulse under 60 Active guaiFENesin 100 mg/5 mL oral liquid 10 mL (200 mg total) every 4 (four) hours as needed for cough If no relief in 3 days notify PCP Active naloxone (NARCAN) 4 mg/0.1 mL nasal spray liquid 1 spray (4 mg total) to one nostril as needed for opioid reversal Active magnesium hydroxide (MILK OF MAGNESIA) 400 mg/5 mL oral suspension Take 30 mL by mouth at bedtime as needed for constipation Notify PCP if no results in 3 days Active traZODone 50 MG tablet Take 1 tablet (50 mg total) by mouth at bedtime as needed for insomnia Active senna (SENOKOT) 8.6 MG tablet Take 2 tablets (17.2 mg total) by mouth 2 (two) times a day as needed for constipation Active hydrOXYzine pamoate 25 MG capsule Take 1 capsule (25 mg total) by mouth every 6 (six) hours as needed for anxiety Active ipratropium-albut silvia (DUONEB) 0.5-2.5 mg/3 mL inhalation solution Take 3 mL by nebulization every 4 (four) hours as needed for wheezing or shortness of breath Congestion Active melatonin 3 MG tablet Take 1 tablet (3 mg total) by mouth at bedtime as needed for sleep May repeat times one- may give with benadryl Active polyethylene glycol 3350 (MIRALAX) 17 g/Scoop powder for oral solution Mix 17 g as directed and take by mouth daily as needed for constipation Active pantoprazole (PROTONIX) 40 MG delayed release EC tabletIndications :Chronic gastrojejunal anastomotic ulcer Take 1 tablet (40 mg total) by mouth 2 (two) times a day before breakfast and dinner 180 tablet 01/15/20 25 025 Active Active Problems Problem Noted Date Diagnosed Date Stenosis of intestine 12/07/2024 Gastrointestinal ulcer 12/07/2024 GI bleed 12/04/2024 Assessment & Plan (12/06/2024 5:34 PM EDT): Patient presenting after she had 3 episodes of black emesis and also noticed 1 black stool day of adm. She denies any diarrhea. Patient has a history of Reva-en-Y gastric bypass and alcohol use disorder currently in remission. Currently denies nausea. Hemoglobin WNL. Stool guaiac in the ED positive. Plan: C/w Protonix 40 mg IV b.i.d. GI consulted and planning for EGD tomorrow Monitor hemoglobin Assessment & Plan (12/05/2024 5:17 PM EDT): Patient presenting after she had 3 episodes of black emesis and also noticed 1 black stool today. She denies any diarrhea. Patient has a history of Reva-en-Y gastric bypass and alcohol use disorder currently in remission. Currently denies nausea. Hemoglobin WNL. Stool guaiac in the ED positive. Plan: C/w Protonix 40 mg IV b.i.d. GI consulted Monitor hemoglobin Assessment & Plan (12/04/2024 5:56 PM EDT): Patient presenting after she had 3 episodes of black emesis and also noticed 1 black stool today. She denies any diarrhea. Patient has a history of Reva-en-Y gastric bypass and alcohol use disorder currently in remission. Currently denies nausea. Hemoglobin WNL. Stool guaiac in the ED positive. Plan: Start soft diet without any red color products, NPO after midnight. Protonix 40 mg IV b.i.d. GI consult Monitor hemoglobin Coffee ground emesis 12/04/2024 Assessment & Plan (12/06/2024 5:34 PM EDT): Patient presenting after she had 3 episodes of black emesis and also noticed 1 black stool day of adm. She denies any diarrhea. Patient has a history of Reva-en-Y gastric bypass and alcohol use disorder currently in remission. Currently denies nausea. Hemoglobin WNL. Stool guaiac in the ED positive. Plan: C/w Protonix 40 mg IV b.i.d. GI consulted and planning for EGD tomorrow Monitor hemoglobin Assessment & Plan (12/05/2024 5:17 PM EDT): Patient presenting after she had 3 episodes of black emesis and also noticed 1 black stool today. She denies any diarrhea. Patient has a history of Reva-en-Y gastric bypass and alcohol use disorder currently in remission. Currently denies nausea. Hemoglobin WNL. Stool guaiac in the ED positive. Plan: C/w Protonix 40 mg IV b.i.d. GI consulted Monitor hemoglobin Assessment & Plan (12/04/2024 5:56 PM EDT): Patient presenting after she had 3 episodes of black emesis and also noticed 1 black stool today. She denies any diarrhea. Patient has a history of Reva-en-Y gastric bypass and alcohol use disorder currently in remission. Currently denies nausea. Hemoglobin WNL. Stool guaiac in the ED positive. Plan: Start soft diet without any red color products, NPO after midnight. Protonix 40 mg IV b.i.d. GI consult Monitor hemoglobin COPD exacerbation 12/04/2024 Assessment & Plan (12/06/2024 5:34 PM EDT): On adm noted wheezing on exam. Patient endorses cold-like illness which she estimates started less than 1 week ago. Has a history of questionable asthma versus COPD. She denies current use of any inhalers. CXR unremarkable. Negative flu/covid/rsv Day after adm worsened with wheezing and rhonchi. Today rhonchi has improved no wheezing. Plan: C/w symbicort C/w Q4 duonebs Avoid prednisone if possible. Assessment & Plan (12/05/2024 5:17 PM EDT): Noted wheezing on exam. Patient endorses cold-like illness which she estimates started less than 1 week ago. Has a history of questionable asthma versus COPD. She denies current use of any inhalers. CXR unremarkable. Negative flu/covid/rsv Today she is coughing and has diffuse rhonchi on exam and developed a cough, is feeling mild dyspnea. Plan: C/w symbicort Add duonebs Q4 patrick Assessment & Plan (12/04/2024 5:56 PM EDT): Noted wheezing on exam. Patient endorses cold-like illness which she estimates started less than 1 week ago. Has a history of questionable asthma versus COPD. She denies current use of any inhalers. Denies shortness of breath, has not noticed a wheeze. Plan: Start Symbicort b.i.d. and DuoNebs p.r.n. Chest x-ray Check viral multiplex Tobacco dependence 12/04/2024 Assessment & Plan (12/06/2024 5:34 PM EDT): Currently smokes about 4-5 cigarettes per day. P.r.n. nicotine patch, she will ask for it if she needs it. Assessment & Plan (12/05/2024 5:17 PM EDT): Currently smokes about 4-5 cigarettes per day. P.r.n. nicotine patch, she will ask for it if she needs it. Assessment & Plan (12/04/2024 5:56 PM EDT): Currently smokes about 4-5 cigarettes per day. P.r.n. nicotine patch, she will ask for it if she needs it. History of alcoholism 12/26/2023 Overview (12/26/2023): Controlled with Vivitrol through [employer] Q 3 weeks Encounters Date Type Department Care Team Description 01/14/2025 12:30 PM EDT Office Visit [facility] [address] [place] [phone] Sailaja Brooke, HAMZAH Chronic gastrojejunal anastomotic ulcer (Primary Dx); Upper GI bleeding 12/12/2024 Results Follow-Up [facility] [address] [place] [address] Martín Denton MD PhD Surgical Pathology Exam 12/08/2024 Pharmacy Visit [facility] [address] [place] [phone] 12/07/2024 10:04 AM EDT Anesthesia Event [address] [phone] Marlon Montesinos MD 12/05/2024 Procedure Pass [address] [phone] 12/05/2024 Pharmacy Visit [facility] [address] [place] [phone] 12/04/2024 1:26 PM EDT - 12/07/2024 4:33 PM EDT Hospital Encounter [address] [phone] Bere Ward DO GI bleed (Primary Dx); Coffee ground emesis; Black stool; Upper GI bleed Discharge Disposition: Home or Self Care 12/04/2024 Procedure Pass [address] [phone] 12/04/2024 Travel from Last 3 Months Family History Medical History Relation Name Comments No Known Problems Mother Relation Name Status Comments Mother Alive Social History Tobacco Use Types Packs/Day Years Used Date Smoking Tobacco: Every Day Cigarettes Tobacco Cessation:Ready to Q uit: No; Counseling Given: No Alcohol Use Standard Drinks/Week Comments Not Currently 0 (1 standard drink = 0.6 oz pur e alcohol) Housing Stability - SDOH Screener Answer Date Recorded What is your living situation today? Unsteady ho using 12/05/2024 Do you need help with Housing/Usp resources? Not on file 12/05/2024 Patient indicated [...] Orientation Straight 04/08/2024 10 :14 AM EDT Last Filed Vital Signs Vital Sign Reading Time Taken Comments Blood Pressure 118/82 01/14/2025 1:18 PM EDT Pulse 63 01/14/2025 1:18 PM EDT Temperature 36.6 C (97.9 F) 12/07/2024 3:15 PM EDT Respiratory Rate 16 01/14/2025 1:18 PM EDT Oxygen Saturation 98% 01/14/2025 1:18 PM EDT Inhaled Oxygen Concentration - - Weight 79.4 kg (175 lb) 01/14/2025 1:18 PM EDT Height 167.6 cm (5' 6 ) 01/14/2025 1:18 PM EDT Body Mass Index 28.25 01/14/2025 1:18 PM EDT Plan of Treatment Upcoming Encounters Date Type Department Care Team (Late st Contact Info) Description 03/11/2025 1:30 PM EDT Office Visit [facility] [address] [place] [address] Sailaja Brooke NP [address] [place] [address] Health Maintenance Due Date Last Done Comments Hepatitis B Screening 12/02/1981 Hepatitis C Screening 12/02/1981 Cervical Cancer Screening: Abnormal Pap/HPV 12/02/1984 Breast Cancer Screening [address] Colonography 12/02/2008 Cholesterol Screening 12/02/2008 Colonoscopy 12/02/2008 Colorectal Cancer Screening 12/02/2008 FIT-DNA 12/02/2008 FOBT 12/02/2008 Sigmoidoscopy 12/02/2008 Pneumococcal Vaccines 50+ yrs (2 of 2 - PCV) 08/02/2011 08/02/2010 Zoster Standard Vaccine (1 of 2) 12/02/2013 RSV Immunization Patients 60+ years or (1 - Risk 60-74 years 1-dose series) 2023 COVID-19 Vaccine ( season) 2024 04/11/2023, 11/15/2021, 02/02/2021, Additional history exists Annual Physical 12/25/2024 12/26/2023 Influenza Vaccine (#1) 2025 , 03/30/2017, 04/01/2016, Additional history exists DTaP,Tdap,and Td Vaccines (3 - Td or Tdap) 01/19/2033 01/19/2023, 08/02/2010 HIB Vaccines Aged Out No longer eligi ble based on patient's age to complete this topic Hepatitis A Vaccine Aged Out No longe r eligible based on patient's age to complete this topic Procedures Procedure Name Priority Date/Time Associated Diagnosis Comments AMB REFERRAL TO GASTROENTEROLOGY First Available/Lc contreras 01/14/2025 1:56 PM EDT Upper GI bleed EGD Routine 12/07/2024 10:11 AM EDT Coffee ground emesis Black stool SURGICAL PATHOLOGY EXAM Routine 12/08/19 10:11 AM EDT GI bleed Coffee ground emesis Black stool COMPREHENSIVE METABOLIC PANEL Routine 12/07/2024 7:48 AM EDT CBC (NO DIFFERENTIAL) Routine 12/07/2024 7:48 AM EDT BASIC METABOLIC PANEL Routine 12/06/2024 6:11 AM EDT CBC AND AUTO DIFFERENTIAL Routine 12/06/2024 6:11 AM EDT COMPREHENSIVE METABOLIC PANEL Routine 12/05/2024 10:49 AM EDT CBC AND AUTO DIFFERENTIAL Routine 12/05/2024 10:49 AM EDT RESPIRATORY MULTIPLEX PANEL - SARS/FLU/RSV Routine 12/04/2024 7:37 PM EDT XR CHEST 1 VW PORTABLE Routine 6:[address] ANGIO ABD PELVIS W AND/OR WO CONT STAT 12/04/2024 4:07 PM EDT TYPE AND SCREEN STAT 12/04/2024 3:20 PM EDT TYPE AND SCREEN STAT 12/04/2024 3:20 PM EDT ECG 12-LEAD STAT 12/04/2024 2:04 PM EDT LIGHT BLUE TOP STAT 12/04/2024 2:03 PM EDT LAVENDER TOP STAT 12/04/2024 2:03 PM EDT RED TOP STAT 12/04/2024 2:03 PM EDT GREEN PST TOP STAT 12/04/2024 2:03 PM EDT LIPASE STAT 12/04/2024 2:03 PM EDT COMPREHENSIVE METABOLIC PANEL STAT 12/04/2024 2:03 PM EDT CBC AND AUTO DIFFERENTIAL STAT 12/04/2024 2:03 PM EDT EXTRA TUBES STAT 12/04/2024 2:03 PM EDT from Last 3 Months Results * Outpatient referral to Gastroenterology (01/14/2025 1:56 PM EDT) Bere Ward DO OUTPATIENT REFERRAL ORDERABLES Final Result * Esophagogastroduodenoscopy (12/07/2024 10:11 AM EDT) Anatomical Region Laterality Modality Endoscopy Narrative 12/07/2024 10:21 AM EDT Table formatting from the original result was not included. Images from the original result were not included. Esophagogastroduodenoscopy Report [facility] Proceduralist Martín Denton MD PhD Patient Name: Anitha Mcintosh Date of : 1965 PCP Sadi Mott MD Date of Procedure: 12/07/2024 Esophagogastroduodenoscopy Procedure Note Pre-op Diagnosis Black stool, Coffee ground emesis Post-op Diagnosis GIB (gastrointestinal bleeding) Indication Coffee ground emesis Black stool Preprocedure A history and physical has been performed, and patient medication allergies have been reviewed. The patient's tolerance of previous anesthesia has been reviewed. The risks and benefits of the procedure and the sedation options and risks were discussed with the patient. All questions were answered and informed consent obtained. Details of the Procedure The patient underwent monitored anesthesia care, which was administered by an anesthesia professional. The patient's blood pressure, heart rate, level of consciousness, oxygen, respirations, ETCO2 and ECG were monitored throughout the procedure. The scope was introduced through the mouth and advanced to the stomach. Prior to the procedure, the patient's H. Pylori status was unknown. The patient experienced no blood loss. The procedure was not difficult. The patient tolerated the procedure well. There were no apparent adverse events. Findings The esophagus appeared normal. Regular Z-line Stenosed and ulcerated previous Reva-en-Y gastric bypass in the gastrojejunostomy; performed cold forceps biopsy. Unable to traverse using an EGD scope Specimens ID Type Source Tests Collected by Time A : bx stricture Tissue Gastroesophageal Junction (GE Junction) SURGICAL PATHOLOGY EXAM Martín Denton MD PhD 12/07/2024 1011 Medications Medication Total No administrations occurring from 0937 to 1013 on 12/07/24 Impression Overall Impression: - Normal-appearing esophagus. - Evidence of prior gastric bypass. GJ anastomosis was stenosed and ulcerated. Biopsies taken by cold forceps. Recommendation Await pathology results - PPI 40 BID. - Stricture NSAID avoidance. - Outpatient EGD with possible dilation. Jasmyn Cho FIELD HAULER GI PROCEDURE ORDERABLES Fi nal Result * Surgical Pathology Exam (12/07/2024 10:11 AM EDT) Case Report Surgical Pathology Case: [id number] Authorizing Provider: Martín Denton MD PhD Collected: 12/07/2024 1011 Ordering Location: [facility] Received: 12/08/2024 [facility] - Replaced by [facility] Pathologist: Madeleine Mccurdy MD Specimen: Gastroesophageal Junction (GE Junction), bx stricture 12/11/2024 2:24 PM EDT [facility] Final Diagnosis GE junction, biopsy: Inflamed gastric mucosa with intestinal metaplasia. COMMENT: If this biopsy is derived from endoscopically abnormal mucosa 1 cm or more above the GE junction, then the findings meet the [facility] diagnostic criteria of Rocha's esophagus. Otherwise, this is considered intestinal metaplasia at the GE junction. There is no evidence of dysplasia or Carcinoma Note: The technical component was completed at [facility]. - The diagnosis was performed at [facility], [address] [place] [address] [place] [address]. - Please see scanned report for details. - By the electronic signature below at Replaced by [facility], the [facility] Pathologist confirms that Dr. Alvarenga's diagnosis has been accurately cut and pasted as above and the report scanned into this patient's report in the [facility] EMR. 12/11/2024 2:24 PM EDT [facility] at 1424 EDT Reporting Location Report is signed out at [facility] 12/11/2024 2:24 PM EDT [facility] Gross Description A. Received in formalin labeled with the patient's name, initials SM and gastroesophageal are 4 irregular pink fragments of soft tissue ranging in greatest dimension from 0.2 cm to 0.6 cm. The specimen is entirely submitted in cassette A1. Time out of formalin: 12:10 am on 12/09/2024. Gross performed at [facility]. Gross evaluation performed and dictated by: MILTON Howard ([facility])cm. 12/11/2024 2:24 PM EDT [facility] Embedded Images 12/11/2024 2:24 PM EDT [facility] Additional Information This report may contain complex medical terminology and you should discuss this report with the clinician who ordered this test to ensure appropriate understanding of the findings. 12/11/2024 2:24 PM EDT [facility] Tissue Cardioesophageal junction structure / Unknown 12/07/2024 10:11 AM EDT 12/08/2024 7:48 AM EDT us Martín Denton MD PhD PATHOLOGY/CYTOLOGY ORDERABL ES Final Result [facility] [address] [place] [phone] * CBC (No Differential) (12/07/2024 7:48 AM EDT) WBC 6.5 4.8 - 11.2 10*3/ L 12/07/2024 9:01 AM EDT [facility] RBC 3.95 3.60 - 5.40 10*6/ L 12/07/2024 9:01 AM EDT [facility] HGB 12.6 12.0 - 15.8 g/dL 12/07/2024 9:01 AM EDT [facility] HCT 38.0 36.0 - 48.0 % 12/07/2024 9:01 AM EDT [facility] MCV 96.2 82.0 - 98.0 fL 12/07/2024 9:01 AM EDT [facility] MCH 32.0 27.0 - 35.0 pg 12/07/2024 9:01 AM EDT [facility] MCHC 33.2 32.0 - 37.0 g/dL 12/07/2024 9:01 AM EDT [facility] RDW 14.7 12.0 - 15.0 % 12/07/2024 9:01 AM EDT [facility] PLT 315 150 - 400 10*3/ L 12/07/2024 9:01 AM EDT [facility] MPV 9.3 7.0 - 14.0 fL 12/07/2024 9:01 AM EDT [facility] Blood Venipuncture / Unknown 12/07/2024 7:48 AM EDT 12/07/2024 8:54 AM EDT us Bere Ward DO LAB BLOOD ORDERABLES Final Res ult [facility] [address] [place] [phone] * (ABNORMAL) Comprehensive metabolic panel (12/07/2024 7:48 AM EDT) Only the most recent of3 resultswithin the time period is included. Sodium 145 136 - 145 mEq/L 12/07/2024 9:15 AM EDT [facility] Potassium 4.4 3.5 - 5.1 mEq/L 12/07/2024 9:15 AM EDT [facility] Chloride 109 98 - 109 mEq/L 12/07/2024 9:15 AM EDT [facility] CO2 26 20 - 31 mEq/L 12/07/2024 9:15 AM EDT [facility] Anion Gap 10 4 - 15 mEq/L 12/07/2024 9:15 AM EDT [facility] Glucose 92 70 - 100 mg/dL 12/07/2024 9:15 AM EDT [facility] Creatinine 0.72 0.50 - 1.00 mg/dL 12/07/2024 9:15 AM EDT [facility] eGFR (Female) >60 60 - 115 mL/min 12/07/2024 9:15 AM EDT [facility] BUN 7(L) 9 - 23 mg/dL 12/07/2024 9:15 AM EDT [facility] Calcium 8.5 8.3 - 10.6 mg/dL 12/07/2024 9:15 AM EDT [facility] Total Protein 5.7 5.7 - 8.2 g/dL 12/07/2024 9:15 AM EDT [facility] Albumin 3.7 3.2 - 4.8 g/dL 12/07/2024 9:15 AM EDT [facility] A/G Ratio 1.9 1.0 - 2.3 12/07/2024 9:15 AM EDT [facility] Total Bilirubin 0.2 0.2 - 1.0 mg/dL 12/07/2024 9:15 AM EDT [facility] AST 24 13 - 40 U/L 12/07/2024 9:15 AM EDT [facility] Alkaline Phosphatase 117(H) 46 - 116 IU/L 12/07/2024 9:15 AM EDT [facility] ALT 17 7 - 40 U/L 12/07/2024 9:15 AM EDT [facility] Blood Venipuncture / Unknown 12/07/2024 7:48 AM EDT 12/07/2024 8:54 AM EDT us Bere Ward DO LAB BLOOD ORDERABLES Final Res ult [facility] [address] [place] [address] * CBC and Auto Differential (12/06/2024 6:11 AM EDT) Only the most recent of3 resultswithin the time period is included. WBC 5.6 4.8 - 11.2 10*3/ L 12/06/2024 8:13 AM EDT [facility] RBC 3.85 3.60 - 5.40 10*6/ L 12/06/2024 8:13 AM EDT [facility] HGB 12.4 12.0 - 15.8 g/dL 12/06/2024 8:13 AM EDT [facility] HCT 37.7 36.0 - 48.0 % 12/06/2024 8:13 AM EDT [facility] MCV 97.7 82.0 - 98.0 fL 12/06/2024 8:13 AM EDT [facility] MCH 32.3 27.0 - 35.0 pg 12/06/2024 8:13 AM EDT [facility] MCHC 33.0 32.0 - 37.0 g/dL 12/06/2024 8:13 AM EDT [facility] RDW 14.6 12.0 - 15.0 % 12/06/2024 8:13 AM EDT [facility] PLT 325 150 - 400 10*3/ L 12/06/2024 8:13 AM EDT [facility] MPV 9.1 7.0 - 14.0 fL 12/06/2024 8:13 AM EDT [facility] Neut % 51.7 45.0 - 85.0 % 12/06/2024 8:13 AM EDT [facility] Lymph % 33.6 15.0 - 45.0 % 12/06/2024 8:13 AM EDT [facility] Stoddard % 10.1 0.0 - 12.0 % 12/06/2024 8:13 AM EDT [facility] Eos % 2.7 0.0 - 7.0 % 12/06/2024 8:13 AM EDT [facility] Baso % 1.9 0.0 - 3.0 % 12/06/2024 8:13 AM EDT [facility] NRBC% 0 0 /100 WBC /100 WBC 12/06/2024 8:13 AM EDT [facility] Neut # 2.9 2.2 - 9.5 10*3/ L 12/06/2024 8:13 AM EDT [facility] Lym # 1.9 0.7 - 5.0 10*3/ L 12/06/2024 8:13 AM EDT [facility] [place]oddard # 0.6 0.0 - 1.3 10*3/ L 12/06/2024 8:13 AM EDT [facility] Eos # 0.2 0.0 - 0.4 10*3/ L 12/06/2024 8:13 AM EDT [facility] Baso # 0.1 0.0 - 0.3 10*3/ L 12/06/2024 8:13 AM EDT [facility] Blood Venipuncture / Unknown 12/06/2024 6:11 AM EDT 12/06/2024 7:57 AM EDT us Bere Ward DO LAB BLOOD ORDERABLES Final Res ult [facility] [address] [place] [address] * (ABNORMAL) Basic metabolic panel (12/06/2024 6:11 AM EDT) Sodium 144 136 - 145 mEq/L 12/06/2024 8:41 AM EDT [facility] Potassium 4.0 3.5 - 5.1 mEq/L 12/06/2024 8:41 AM EDT [facility] [facility] Chloride 108 98 - 109 mEq/L 12/06/2024 8:41 AM EDT [facility] CO2 27 20 - 31 mEq/L 12/06/2024 8:41 AM EDT [facility] Anion Gap 9 4 - 15 mEq/L 12/06/2024 8:41 AM EDT [facility] Glucose 91 70 - 100 mg/dL 12/06/2024 8:41 AM EDT [facility] Creatinine 0.76 0.50 - 1.00 mg/dL 12/06/2024 8:41 AM EDT [facility] eGFR (Female) >60 60 - 115 mL/min 12/06/2024 8:41 AM EDT [facility] BUN 6(L) 9 - 23 mg/dL 12/06/2024 8:41 AM EDT [facility] Calcium 8.5 8.3 - 10.6 mg/dL 12/06/2024 8:41 AM EDT [facility] Blood Venipuncture / Unknown 12/06/2024 6:11 AM EDT 12/06/2024 7:57 AM EDT us Bere Ward DO LAB BLOOD ORDERABLES Final Res ult [facility] [address] [place] [phone] * Respiratory Multiplex Panel - SARS/FLU/RSV (12/04/2024 7:37 PM EDT) SARS CoV-2 PCR Negative Negative 12/04/2024 9:27 PM EDT [facility] FLU A PCR Negative Negative 12/04/2024 9:27 PM EDT [facility] FLU B PCR Negative Negative 12/04/2024 9:27 PM EDT [facility] RSV PCR Negative Negative 12/04/2024 9:27 PM EDT [facility] Nasopharyngeal Nasopharyngeal swab / Unknown Collection / Unknown 12/04/2024 7:37 PM EDT 12/04/2024 7:38 PM EDT Narrative [facility] - 12/04/2024 9:27 PM EDT The Xpert Xpress CoV-2/Flu/RSV plus test is only for use under the Food and Drug Administration's Emergency Use Authorization. Positive results are indicative of active infection, but do not rule out bacterial infection or co-infection with other pathogens not detected by the test. Negative results do not preclude SARS-CoV-2, influenza A virus, influenza B virus and/or RSV infection and should not be used as the sole basis for treatment or other patient management decisions. Negative results must be combined with clinical observations, patient history, and/or epidemiological information. Clinical correlation with patient history and other diagnostic information is necessary to determine patient infection status. The agent detected may not be the definite cause of the disease. Reference Range: Negative (This is the expected value, NOT your result) us Bere Ward DO MICROBIOLOGY - GENERAL ORDERAB LES Final Result [facility] [address] [place] [address] * X-ray chest 1 view portable (12/04/2024 6:08 PM EDT) Anatomical Region Laterality Modality Chest, Ortho Chest Digital Radio graphy 12/04/2024 6:16 PM EDT Impressions 12/04/2024 6:16 PM EDT IMPRESSION: No acute cardiopulmonary process. RS: [id number] Narrative 12/04/2024 6:16 PM EDT HISTORY: wheezing TECHNIQUE: XR CHEST 1 VW PORTABLE COMPARISON: None. FINDINGS: Lines/tubes: None. Lungs: The lungs are clear. Pleura: There is no evidence of pleural effusion or pneumothorax. Heart and mediastinum: The heart and the mediastinum are normal for this technique. Bones: No acute abnormality. Procedure Note Jessica Cesar MD - 12/04/2024 HISTORY: wheezing TECHNIQUE: XR CHEST 1 VW PORTABLE COMPARISON: None. FINDINGS: Lines/tubes: None. Lungs: The lungs are clear. Pleura: There is no evidence of pleural effusion or pneumothorax. Heart and mediastinum: The heart and the mediastinum are normal for thistechnique. Bones: No acute abnormality. IMPRESSION: No acute cardiopulmonary process. RS: [id number] us Bere Ward DO IMG DIAGNOSTIC IMAGING ORDERAB LES Final Result * CT angiogram abdomen pelvis with and/or without contrast (12/04/2024 4:07 PM EDT) Anatomical Region Laterality Modality Abdomen, Ortho Abdomen Computed Tomography 12/04/2024 4:16 PM EDT Impressions 12/04/2024 4:25 PM EDT IMPRESSION: No CT evidence of active gastrointestinal bleeding. No acute abnormality within the abdomen, pelvis, or lower extremities. RS: [id number] Narrative 12/04/2024 4:25 PM EDT HISTORY: Gastrointestinal bleeding. TECHNIQUE: Volumetric axial CT imaging through the abdomen and pelvis was performed prior to and following the uneventful intravenous administration of iodinated contrast. Dynamic postcontrast imaging was performed per the GI bleeding protocol. Multiplanar image post-processing was performed including Maximum Intensity Projection (MIP) reconstruction techniques. This exam was performed with the following dose reduction techniques: automated exposure control and adjustment of milliamperage and/or kilovoltage according to patient size. COMPARISON: None FINDINGS: VESSELS: Aorta: Patent without dissection, aneurysm, or significant stenosis. Abdomen Branch Vessels: celiac artery: Patent without dissection, aneurysm, or significant stenosis. superior mesenteric artery: Patent without dissection, aneurysm, or significant stenosis. renal arteries: Patent without dissection, aneurysm, or significant stenosis. inferior mesenteric artery: Patent without dissection, aneurysm, or significant stenosis. Iliac Arteries: Patent without dissection, aneurysm, or significant stenosis. ABDOMEN: The visualized lung bases are clear. The visualized heart is unremarkable. There is a subcentimeter hypodense lesion within left hepatic lobe that is too small to characterize (axial image 18). The liver is otherwise unremarkable. The gallbladder is absent with cholecystectomy clips in the gallbladder fossa. There is no bile duct dilatation. The pancreas is unremarkable. The spleen is unremarkable. The adrenal glands are unremarkable. The kidneys are unremarkable. 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 The more distal small bowel is unremarkable. The appendix is normal. The colon is unremarkable. There is no endoluminal contrast extravasation on the arterial and portal venous phases to suggest active gastrointestinal bleeding. There is no mesenteric or retroperitoneal adenopathy or mass. PELVIS: The urinary bladder, uterus, and rectum are unremarkable. There is no free fluid or free air. There is anterior mid abdominal hernia repair mesh. There are degenerative changes of the spine. There is no acute fracture or suspicious osseous lesion. Procedure Note William Pérez MD - 12/04/2024 HISTORY: Gastrointestinal bleeding. TECHNIQUE: Volumetric axial CT imaging through the abdomen and pelvis was performedprior to and following the uneventful intravenous administration ofiodinated contrast. Dynamic postcontrast imaging was performed per the GIbleeding protocol. Multiplanar image post-processing was performed including MaximumIntensity Projection (MIP) reconstruction techniques. This exam was performed with the following dose reduction techniques:automated exposure control and adjustment of milliamperage and/orkilovoltage according to patient size. COMPARISON: None FINDINGS: VESSELS: Aorta: Patent without dissection, aneurysm, or significant stenosis. Abdomen Branch Vessels: celiac artery: Patent without dissection, aneurysm, or significantstenosis. superior mesenteric artery: Patent without dissection, aneurysm, orsignificant stenosis. renal arteries: Patent without dissection, aneurysm, or significantstenosis. inferior mesenteric artery: Patent without dissection, aneurysm, orsignificant stenosis. Iliac Arteries: Patent without dissection, aneurysm, or significantstenosis. ABDOMEN: The visualized lung bases are clear. The visualized heart is unremarkable. There is a subcentimeter hypodense lesion within left hepatic lobe that istoo small to characterize (axial image 18). The liver is otherwiseunremarkable. The gallbladder is absent with cholecystectomy clips in the gallbladderfossa. There is no bile duct dilatation. The pancreas is unremarkable. Thespleen is unremarkable. The adrenal glands are unremarkable. The kidneysare unremarkable. There is Reva-en-Y gastric bypass anatomy with a retrocolic Reva loop andres left abdominal jejunojejunostomy. The more distal small bowel isunremarkable. The appendix is normal. The colon is unremarkable. There isno endoluminal contrast extravasation on the arterial and portal venous phases to suggest activegastrointestinal bleeding. There is no mesenteric or retroperitoneal adenopathy or mass. PELVIS: The urinary bladder, uterus, and rectum are unremarkable. There is no free fluid or free air. There is anterior mid abdominalhernia repair mesh. There are degenerative changes of the spine. There isno acute fracture or suspicious osseous lesion. IMPRESSION: No CT evidence of active gastrointestinal bleeding. No acute abnormality within the abdomen, pelvis, or lower extremities. RS: [id number] Ursula Alonzo DO [facility] CT ORDERABLES Final Result * Type and Screen (12/04/2024 3:20 PM EDT) ABO O 12/04/2024 4:16 PM EDT [facility] RH Positive 12/04/2024 4:16 PM EDT [facility] Antibody Screen Negative 12/04/2024 4:16 PM EDT [facility] Blood Venipuncture / Unknown 12/04/2024 3:20 PM EDT 12/04/2024 3:25 PM EDT Ursula Alonzo DO BLOOD BANK TEST ORDERABLES Final Result Performing Organization Address [facility] Co de Phone Number [facility] Blood Bank [address] [place] [address] * ECG 12-LEAD (12/04/2024 2:04 PM EDT) Ursula Pardo DO - 12/04/2024 2:04 PM EDT Ursula Alonzo DO 12/04/2024 2:04 PM EKG electrocardiogram Date/Time: 12/04/2024 2:04 PM Performed by: Ursula Alonzo DO Authorized by: Ursula Alonzo DO Measurements: BPM: 52 [place] Duration: 182 ms QRS Duration: 86 ms QTc Interval: 425 ms Findings: Rate: bradycardic Rhythm: Sinus rhythm Interpreted by ED physician Ursula Alonzo DO ECG ORDERABLES Final Result * Green PST Top (12/04/2024 2:03 PM EDT) Extra Tube Auto resulted. 12/04/2024 6:06 PM EDT [facility] Comment:Hold for add-ons. Blood Venipuncture / Unknown 12/04/2024 2:03 PM EDT 12/04/2024 2:03 PM EDT Ursula Alonzo DO LAB BLOOD ORDERABLES Final Resul t Performing Organization Address City/[facility] Co de Phone Number [facility] [address] [place] [address] * Lavender Top (12/04/2024 2:03 PM EDT) Extra Tube Auto resulted. 12/04/2024 6:06 PM EDT [facility] Comment:Hold for add-ons. Blood Venipuncture / Unknown 12/04/2024 2:03 PM EDT 12/04/2024 2:03 PM EDT Ursula Clinton DO LAB BLOOD ORDERABLES Final Resul t Performing Organization Address [facility] Co de Phone Number [facility] [address] [place] [phone] * Red Top (12/04/2024 2:03 PM EDT) Extra Tube Auto resulted. 12/04/2024 6:06 PM EDT [facility] Comment:Hold for add-ons. Blood Venipuncture / Unknown 12/04/2024 2:03 PM EDT 12/04/2024 2:03 PM EDT Ursula Clinton DO LAB BLOOD ORDERABLES Final Resul t Performing Organization Address [facility] de Phone Number [facility] [address] [place] [phone] * Light Blue Top (12/04/2024 2:03 PM EDT) Extra Tube Auto resulted. 12/04/2024 6:06 PM EDT [facility] Comment:Hold for add-ons. Blood Venipuncture / Unknown 12/04/2024 2:03 PM EDT 12/04/2024 2:03 PM EDT [facility] DO LAB BLOOD ORDERABLES Final Resul t Performing Organization Address [facility] de Phone Number [facility] [address] [place] [phone] * Lipase (12/04/2024 2:03 PM EDT) Lipase 28 12 - 53 U/L 12/04/2024 3:29 PM EDT [facility] Blood Venipuncture / Unknown 12/04/2024 2:03 PM EDT 12/04/2024 2:03 PM EDT us Ursula Alonzo DO LAB BLOOD ORDERABLES Final Resul t [facility] [address] [place] [address] from Last 3 Months Insurance [facility] [employer] on file Advance Directives For more information, please contact: [phone] * Full Code (Latest Code Status on File) Date Activated Date Inactivated Comments 12/04/2024 5:31 PM 12/07/2024 7:38 PM Care Teams Cardiac Cath Lab Manager Relationship Specialty Start Date End Date Sadi Mott MD [address] [place] [phone] PCP - General Internal Medicine 03/26/23
--- OUTSIDE RECORDS SUMMARY | 2025-02-27 16:37 | XMS_ITS | Clinical Summary ---
Author Organization Gladis Arreola [facility] Address [address] [place] [address] Care Team Providers Care Technology Teacher Name Role Phone Sadi Mott Primary Care Provider [phone] Allergies No known active allergies Medications atorvaSTATin (LIPITOR) 20 MG tablet Take 1 tablet (20 mg total) by mouth daily. 02/02/2025 Active cloNIDine (CATAPRES) 0.1 MG tablet Take 1 tablet (0.1 mg total) by mouth 4 times a day. 02/02/2025 Active famotidine (PEPCID) 40 MG tablet Take 1 tablet (40 mg total) by mouth daily. 2024 Active FLUoxetine (PROzac) 40 MG capsule Take 1 capsule (40 mg total) by mouth daily. 01/20/2025 Active hydrOXYzine pamoate (VISTARIL) 25 MG capsule Take 1 capsule (25 mg total) by mouth 4 times a day as needed for anxiety. 02/02/2025 Active levothyroxine (SYNTHROID, LEVOXYL) 88 MCG tablet Take 1 tablet (88 mcg total) by mouth every morning. 01/27/2025 Active OLANZapine (ZyPREXA) 10 MG tablet Take 1 tablet (10 mg total) by mouth at bedtime. 01/11/2025 Active omeprazole (PriLOSEC) [address] capsule Take 1 capsule (20 mg total) by mouth daily. 2024 Active pantoprazole (PROTONIX) [address] tablet Take 1 tablet (40 mg total) by mouth daily. 01/22/2025 Active traZODone (DESYREL) 50 MG tablet Take 1 tablet (50 mg total) by mouth 2 times a day. 02/10/2025 Active Encounters Date Type Department Care Team Description 02/20/2025 Travel 02/19/2025 7:40 PM EDT - 02/27/2025 1:47 PM EDT Emergency [facility] [address] [place] [address] Abigail Woodruff, MD Thomas, Mindi Bedoya, MD Cruz, MD Efren Sawyer Yining, MD Raho, Michael Mariscal, MD Rucker, MD Dung Jimenez, Jose Carlos Corral, MD Basurto, Bg Montez, DO Sapp, Mariam Hunt, Wei Roche MD Agitation (Primary Dx); Depression, unspecified depression type [F32.A]; Major depressive disorder with single episode, remission status unspecified Discharge Disposition: Another Health Care Institution Not Defined from Last 3 Months Immunizations Immunization Administration Dates Next Due Tdap Vaccine (BOOSTRIX/ADACEL) 01/19/2023 Social History Tobacco Use Types Packs/Day Years [...] any time in the past 12 m [facility], were you homeless or living in a chcf (including now)? Yes 02/26/2025 [facility] Utilities Answer Date Recorded In the past 12 months has th e [employer], gas, oil, or water [employer] threatened to shut off services in your [...] PM EST Sexual Orientation Not on file Last Filed Vital Signs Vital Sign Reading [...] Mass Index 28.29 02/19/2025 8:36 PM EDT Plan of Treatment Health Maintenance Due Date Last Done Comments Hemoglobin A1c 1965 Lipid Panel 1963 Depression Screening 1967 HPV/Cotest 12/02/1993 Breast Cancer Screening 2003 CT Colonography 12/02/2008 Colonoscopy 12/02/2008 Colorectal Cancer Screening 12/02/2008 FIT 12/02/2008 FOBT 12/02/2008 Multitarget Stool DNA (Cologuard) 12/02/2008 Sigmoidoscopy 12/02/2008 Pneumococcal Vaccine (2 of 2 - PCV) 12/02/2013 08/02/2010 Zoster Vaccine (1 of 2) 12/02/2013 Cervical Cancer Screening 10/09/2020 Pap Smear 10/09/2020 10/09/2017 COVID-19 Vaccine (1 - season) 2024 Influenza Vaccine (#1) 2025 7, 04/01/2016, 04/01/2015, Additional history exists Blood Pressure 02/27/2026 02/27/2025 DTaP,Tdap,and Td Vaccines (3 - Td or Tdap) 01/19/2033 01/19/2023, 08/02/2010 Pneumococcal Vaccine: Pediatrics (0 to 5 Years) and At-Risk Patients (6 to 64 Years) Aged Out 08/02/2010 No longer eligible based on patient's age to complete this topic Hepatitis C Screening Completed 02/21/2025 Meningococcal B Vaccines Aged Out No longer eligible based on patient's age to complete this topic Meningococcal Vaccines Aged Out No lo nger eligible based on patient's age to complete this topic Procedures Procedure Name Priority Date/Time Associated Diagnosis Comments HEPATITIS A ANTIBODY, IGM STAT 02/21/2025 8:23 AM EDT CBC AND DIFFERENTIAL STAT 02/21/2025 8:23 AM EDT HEPATITIS B CORE ANTIBODY, IGM STAT 02/21/2025 8:23 AM EDT HEPATITIS C STERILE HOLD STAT 02/21/2025 8:23 AM EDT HEPATITIS C ANTIBODY STAT 02/21/2025 8:23 AM EDT HEPATITIS B SURFACE ANTIGEN STAT 02/21/2025 8:23 AM EDT HEPATITIS B CORE ANTIBODIES (IGG, IGM) STAT 02/21/2025 8:23 AM EDT HEPATITIS A ANTIBODY, IGM STAT 02/21/2025 8:23 AM EDT CBC AND [...] URINE STAT 02/19/2025 10 :03 PM EDT from Last 3 Months Results * Hepatitis C Antibody (02/21/2025 8:23 AM EDT) [facility] Hepatitis C Antibody Negative Negative 02/21/2025 11:43 AM EDT [facility] Blood PERIPHERAL BLOOD SPECIMEN / Unknown Venipuncture / Unknown 02/21/2025 8:23 AM EDT 02/21/2025 8:30 AM EDT [facility] [place] [facility]LOOD ORDERABLES Final Result Performing Organization Address [facility] de Phone Number [facility] [address] [place] [address] * Hepatitis C Sterile Hold (02/21/2025 8:23 AM EDT) Blood PERIPHERAL BLOOD SPECIMEN / Unknown Venipuncture / Unknown 02/21/2025 8:23 AM EDT 02/21/2025 8:30 AM EDT [facility] BLOOD ORDERABLES Final Result Performing Organization Address [facility] Phone Number [address] [address] * CBC and Differential (02/21/2025 8:23 AM EDT) Only the most recent of2 resultswithin the time period is included. [facility] WBC 4.71 4.00 - 11.00 K/uL 02/21/2025 8:42 AM EDT [facility] RBC 4.46 4.00 - 5.20 M/uL 02/21/2025 8:[facility] Hemoglobin 13.3 12.0 - 15.0 g/dL 02/21/2025 8:42 AM EDT [facility] Hematocrit 41.7 36.0 - 45.0 % 02/21/2025 8:42 AM EDT [facility] MCH 29.8 23.0 - 37.0 pg 02/21/2025 8:42 AM EDT [facility] MCHC 31.9 29.0 - 38.0 g/dL 02/21/2025 8:42 AM EDT [facility] MCV 94 82 - 98 fL 02/21/2025 8:42 AM EDT [facility] RDW 13.0 11.5 - 14.5 % 02/21/2025 8:42 AM EDT [facility] Platelet Count 223 150 - 450 K/uL 02/21/2025 8:42 AM EDT [facility] MPV 11.4 6.0 - 14.0 fL 02/21/2025 8:42 [facility] Neutrophil 48.5 % 02/21/2025 8:42 AM EDT [facility] Lymphocyte 38.6 % 02/21/2025 8:42 AM EDT [facility] Monocyte 7.0 % 02/21/2025 8:42 AM EDT [facility] Eosinophil 4.0 % 02/21/2025 8:42 AM EDT [facility] Basophil 1.5 % 02/21/2025 8:42 AM EDT [facility] Immature Granulocyte ([place], Myelo, Promyelocyte) 0.4 % 02/21/2025 8:42 [facility] Absolute Neutrophil Count 2.28 1.50 - 7.70 K/uL 02/21/2025 8:42 AM EDT [facility] Absolute Immature Granulocyte ([place], Myelo, Promyelocyte) 0.02 0.00 - 0.09 K/uL 02/21/2025 8:42 AM EDT [facility] Absolute Lymphocyte Count 1.82 1.50 - 4.00 K/uL 02/21/2025 8:42 [facility] Absolute Monocyte Count 0.33 0.16 - 1.26 K/uL 02/21/2025 8:42 [facility] Absolute Eosinophil Count 0.19 0.15 - 0.30 K/uL 02/21/2025 8:42 AM EDT [facility] Absolute Basophil Count 0.07 0.00 - 0.21 K/uL 02/21/2025 8:42 [facility] Blood PERIPHERAL BLOOD SPECIMEN / Unknown Venipuncture / Unknown 02/21/2025 8:23 AM EDT 02/21/2025 8:30 AM EDT us Par[facility] LAB BLOOD ORDERABLES Final Result [facility] [address] [place] [address] * (ABNORMAL) Hepatitis B Core Antibodies (IgG, IgM) (02/21/2025 8:23 AM EDT) Hepatitis B Core Antibodies (IgG, IgM) Positive( A) Negative 02/21/2025 11:58 AM EDT [facility] Comment:IgM specific serolog y ordered based on this result. Blood PERIPHERAL BLOOD SPECIMEN / Unknown Venipuncture / Unknown 02/21/2025 8:23 AM EDT 02/21/2025 8:30 AM EDT [facility] [employer] LAB BLOOD ORDERABLES Final Result [address] [address] * Hepatitis A Antibody, IgM (02/21/2025 8:23 AM EDT) Hepatitis A Antibody (IgM) Negative Negative 02/21/2025 1:07 PM EDT [facility] Blood PERIPHERAL BLOOD SPECIMEN / Unknown Venipuncture / Unknown 02/21/2025 8:23 AM EDT 02/21/2025 8:30 AM EDT [facility] BLOOD ORDERABLES Final Result Performing Organization Address City/[facility]/ZIP Co de Phone Number [address] [address] * Hepatitis B Core Antibody, IgM (02/21/2025 8:23 AM EDT) Hepatitis B Core Antibody (IgM) Negative Negative 02/21/2025 7:53 PM EDT [facility] Blood PERIPHERAL BLOOD SPECIMEN / Unknown Venipuncture / Unknown 02/21/2025 8:23 AM EDT 02/21/2025 8:30 AM EDT [facility] BLOOD ORDERABLES Final Result Performing Organization Address City/[facility]/ZIP Co de Phone Number [address] [address] * Hepatitis B Surface Antigen (02/21/2025 8:23 AM EDT) Pathologist [facility] Hep B [place] Ag Negative Negative 02/21/2025 11:56 AM EDT [facility] Blood PERIPHERAL BLOOD SPECIMEN / Unknown Venipuncture / Unknown 02/21/2025 8:23 AM EDT 02/21/2025 8:30 AM EDT [facility] LAB BLOOD ORDERABLES Final Result Performing Organization Address [facility]/ZIP Co de Phone Number [address] [address] * (ABNORMAL) Acetaminophen Level (02/21/2025 8:23 AM EDT) [facility] Acetaminophen Result,Blood <5(L) 10 - 30 ug/mL 02/21/2025 9:03 AM EDT [facility] Blood PERIPHERAL BLOOD SPECIMEN / Unknown Venipuncture / Unknown 02/21/2025 8:23 AM EDT 02/21/2025 8:30 AM EDT [place] [place] LAB BLOOD ORDERABLES Final Result Performing Organization Address [facility] de Phone Number [address] [address] * (ABNORMAL) Hepatic Function Panel (02/21/2025 8:23 AM EDT) [facility] Total Protein 6.5 6.2 - 8.2 g/dL [...] BLOOD ORDERABLES Final Result [facility] [address] [place] [address] * (ABNORMAL) Basic Metabolic Panel (02/21/2025 8:23 AM EDT) Sodium 144 135 - 146 mmol/L 02/21/2025 9:03 AM [facility] Potassium 4.2 3.4 - 5.2 mmol/L 02/21/2025 9:03 AM [facility] Chloride 110 98 - 110 mmol/L 02/21/2025 9:03 AM [facility] Total CO2/Bicarbonat e 24 24 - 32 mmol/L 02/21/2025 9:03 AM [facility] Anion Gap 10 2 - 15 mmol/L 02/21/2025 9:03 AM [facility] BUN 11 7 - 24 mg/dL 02/21/2025 9:03 AM EDT [facility] Creatinine, Blood 0.80 0.50 - 1.10 mg/dL 02/21/2025 9:03 AM [facility] Glucose, Blood 118(H) 50 - 100 mg/dL 02/21/2025 9:03 AM EDT [facility] Calcium 8.9 8.5 - 10.5 mg/dL 02/21/2025 9:03 AM EDT [facility] Estimated GFR(CKD-EPI) 80 >=60 mL/min/BSA 02/21/2025 9:03 AM EDT [facility] Blood PERIPHERAL BLOOD SPECIMEN / Unknown Venipuncture / Unknown 02/21/2025 8:23 AM EDT 02/21/2025 8:30 AM EDT Parth Kiddel [place] LAB BLOOD ORDERABLES Final Result [facility] [address] [place] [address] * US ABDOMEN LIMITED (02/21/2025 7:56 AM [...] No ascites is identified. Resulting Agency Comment [id number] Procedure Note Alistair Campuzano MD - 02/21/2025 [...] dilatation. Negative Stone's sign. us [facility] US ORDERABLES Final Re sult * (ABNORMAL) Comprehensive Metabolic Panel (CMP) (02/20/2025 1:12 PM EDT) Only the most recent of2 resultswithin the time period is included. Sodium 143 135 - 146 mmol/L 02/20/2025 1:49 PM ED [facility] Potassium 4.3 3.4 - 5.2 mmol/L 02/20/2025 1:49 PM EDT [facility] Chloride 109 98 - 110 mmol/L 02/20/2025 1:49 PM EDT [facility] Total CO2/Bicarbonate 23(L) 24 - 32 mmol/L 02/20/2025 1:49 PM EDT [facility] Anion Gap 11 2 - 15 mmol/L 02/20/2025 1:49 PM ED [facility] BUN 11 7 - 24 [...] 1:12 PM EDT 02/20/2025 1:15 PM EDT [facility]y [facility] LAB BLOOD ORDERABLES Final Res ult [facility] [address] [place] [address] * ECG 12 lead, to be obtained, other indication (02/20/2025 1:13 AM EDT) Ventricular Heart Rate 68 BPM EKG [facility] Atrial Heart Rate 68 BPM EKG [facility] NV Interval 200 ms EKG [facility] QRSD Interval 88 ms EKG [facility] QT Interval 418 ms EKG [facility] QTC Interval 444 ms EKG [facility] P [place] 64 degrees EKG [facility]USE R [place] 9 degrees EKG [facility] T Wave [place] 53 degrees EKG B[facility] MUSE 02/20/2025 1:13 AM EDT 02/20/2025 8:27 AM EDT Narrative EKG B[facility] MUSE - 02/20/2025 8:27 AM EDT Normal sinus rhythm Nonspecific ST and T wave abnormality Abnormal ECG Confirmed by Sofía Mejia ([id number]) on 02/20/2025 8:27:38 AM Procedure Note Sofía Pérez MD - 02/20/2025 Normal sinus rhythm Nonspecific ST and T wave abnormality Abnormal ECG Confirmed by Sofía Mejia ([id number]) on 02/20/2025 8:27:38 AM Abigail Woodruff MD ECG ORDERABLES Final Result EKG ANGELIQUE [address] [address] * (ABNORMAL) Drug Screen, Urine (02/19/2025 10:03 PM EDT) 6-Aceytlmorphine Screen, Urine Negative Negative 02/19/2025 10:57 PM EDT [facility] Comment:Add on order [id number] Opiates and Oxycodone, Urine, Confirmation, if confirmation desired. Amphetamines Screen, Urine Negative Negative 02/19/2025 10:57 PM EDT [facility] Comment: Screen for Amphetamine, Metamphetamine or other Amphetamine-like compounds. Add-on order [id number] Amphetamine, Urine, Confirmation if confirmation desired. Barbiturates Screen, Urine Negative Negative 02/19/2025 10:57 PM EDT [facility] Comment:Add-on order [id number] Barbiturate, Urine, Confirmation if confirmation desired. Benzodiazepine Screen, Urine Negative Negative 02/19/2025 10:57 PM EDT [facility] Comment: Add-on order [id number] Benzodiazepine, Urine, Confirmation if confirmation desired. Buprenorphine Screen, Urine Negative Negative 02/19/2025 10:57 PM EDT [facility] Comment:Add-on order [id number] Buprenorphine, Urine, Confirmation if confirmation desired. Cannabinoids Screen, Urine Negative Negative 02/19/2025 10:57 PM EDT [facility] Comment:Add-on order [id number] Cannabinoids, Urine, if confirmation desired. Cocaine Metabolite Screen, Urine Negative Negative 02/19/2025 10:57 PM EDT [facility] Comment:Add-on order [id number] Cocaine, Urine, Confirmation if confirmation desired. Ethanol Screen, Urine Positive(A) Negative 02/19/2025 10:57 PM EDT [facility] Fentanyl Screen, Urine Negative Negative 02/19/2025 10:57 PM EDT [facility] Comment:Add-on order [id number] Fentanyl Confirmation, Urine, if confirmation desired. Methadone Screen, Urine Negative Negative 02/19/2025 10:57 PM EDT [facility] Comment:Add order [id number] Me thadone, Urine, Confirmation if confirmation desired. Opiates Screen, Urine Negative Negative 02/19/2025 10:57 PM EDT [facility] Comment: Screen for Morphine, Codeine, Hyrdocodone, Hydromorphone, or other Morphine- related opiates. Add on order [id number] Opiates and Oxycodone, Urine, Confirmation if confirmation desired. Oxycodone Screen, Urine Negative Negative 02/19/2025 10:57 PM EDT [facility] Comment:Add-on order [id number] Opiates and Oxycodone, Urine, Confirmation if confirmation desired. Tramadol Screen, Urine Negative Negative 02/19/2025 10:57 PM EDT [facility] Comment:Add-on order [id number] Tramadol Confirmation, Urine, if confirmation desired. Creatinine, Jim Urine 23.0 >=15.0 mg/dL 02/19/2025 10:57 PM EDT [facility] Urine URINE SPECIMEN / Unknown Collection / Unknown 02/19/2025 10:03 PM EDT 02/19/2025 10:28 PM EDT Narrative [facility] - 02/19/2025 10:57 PM EDT These [...] URINE ORDERABLES Final Result [facility] [address] [place] [address] from Last 3 Months Insurance S[employer] Care Teams Technology Teacher Relationship Specialty Start Date End Date Sadi Mott [address] [place] [phone] [facility] - General 02/19/25
--- OUTSIDE RECORDS SUMMARY | 2025-02-27 16:37 | XMS_ITS | Encounter Summary ---
Author Organization [facility] Address [address] [place] [address] Care Team Providers Care Sexologist Name Role Phone Sadi Mott MD Primary Care Provider [phone] Encounter Details Date Type Department Care Team (Late st Contact Info) Description 12/04/2024 Procedure [facility] [address] [place] [address] Social History Tobacco Use Types Packs/Day Years Used Date Smoking Tobacco: Every Day Cigarettes Alcohol Use Standard Drinks/Week Comments Not Currently 0 (1 standard drink = 0.6 oz pur e alcohol) Housing Stability - SDOH Screener Answer Date Recorded What is your living situation today? Unsteady ho using 12/05/2024 Do you need help with Housing/Custodial resources? Not on file 12/05/2024 Patient indicated [...] Description 03/11/2025 1:30 PM EDT Office Visit [facility] [address] [facility]rd [place] [address] Sailaja Brooke NP [address] [place] [address] documented as of this encounter Visit Diagnoses Not on filedocumented in this encounter Additional Health Concerns Infection Onset Date Last Indicated Resolved Time PUI COVID 12/04/2024 12/04/2024 12/04/2024 9:27 PM EDT documented as of this encounter Care Teams Sexologist Relationship Specialty Start Date End Date Sadi Mott MD [address] [place] [address] [address] [place] [address] PCP - General Internal Medicine 03/26/23 documented as of this encounter
--- OUTSIDE RECORDS SUMMARY | 2025-02-27 16:37 | XMS_ITS | Clinical Summary ---
Author Organization [facility] Address [address] [place] [address] Care Team Providers Care Safety Instruction Police Officer Name Role Phone Shelby Bragg MD Primary Care Provider Unavailabl e Social History Tobacco Use Types Packs/Day Years Used Date Smoking Tobacco: Never Assessed Comments Unknown Sex and Gender Information Value Date Recorded Sex Assigned at Not on file Legal Sex Female 3:53 PM EST Gender Identity Not on file Sexual Orientation Not on file Plan of Treatment Health Maintenance Due Date Last Done Comments HEPATITIS C SCREENING 12/02/1980 Cervical Cancer Screening 12/02/1984 Pap Smear 12/02/1984 DTAP/TDAP/TD VACCINES (1 - Tdap) 12/02/1992 HPV Test 12/02/1993 COLONOSCOPY (CRC) 12/02/2008 COLORECTAL CANCER SCREENING (CRC) 12/02/2008 CT COLONOGRAPHY (CRC) 12/02/2008 FIT-DNA (CRC) 12/02/2008 FIT/iFOBT (CRC) 12/02/2008 SIGMOIDOSCOPY (CRC) 12/02/2008 PNEUMOCOCCAL VACCINE: 50+ YE ARS (1 of 1 - PCV) 12/02/2013 ZOSTER VACCINE (1 of 2) 12/02/2013 COVID-19 IMMUNIZATION (1 - 2 [address] season) 2024 INFLUENZA VACCINE (#1) 2025 RSV IMMUNIZATION (1 - 1-dose 75+ series) 12/02/2038 IPV VACCINES Aged Out No longer eligi ble based on patient's age to complete this topic MENINGOCOCCAL B VACCINE Aged Out No l onger eligible based on patient's age to complete this topic Care Teams Safety Instruction Police Officer Relationship Specialty Start Date End Date Shelby Bragg MD No Address [place] [address] PCP - General Internal Medicine 06/18/24
--- OUTSIDE RECORDS SUMMARY | 2025-02-27 16:37 | XMS_ITS | Clinical Summary ---
Author Organization [facility] Address [address] [place] [address] Phone Care Team Providers Care Office Aide Name Role Phone Unavailable Primary Care Provider Unavailabl e Medications acamprosate (CAMPRAL) 333 mg tablet Take 666 mg by mouth 3 (three) times a day. 3 Active acetaminophen (TYLENOL) 325 mg tablet Take 1 tablet by mouth as needed. 3 Active albuteroL 90 mcg/puff Inhalation HFA inhaler Inhale 2 puffs every 4 (four) hours as needed. 3 Active ELIQUIS 5 mg Tab tablet Take 5 mg by mouth 2 (two) times a day. 3 Active atorvastatin (LIPITOR) 20 mg tablet Take 20 mg by mouth daily. 3 Active ergocalciferol (ERGOCALCIFEROL) 1,250 mcg (50,000 unit) capsule TAKE 1 CAPSULE BY MOUTH EVERY OTHER WEEK 3 Active famotidine (PEPCID) 40 mg tablet Take 40 mg by mouth 2 (two) times a day. 3 Active FLUoxetine (PROZAC) 20 MG capsule Take by mouth daily. 3 Active hydrocortisone 1 % lotion 3 Active levothyroxine (SYNTHROID, LEVOTHROID) 88 MCG tablet Take 1 tablet by mouth every morning before breakfast. 3 Active LORazepam (ATIVAN) 0.5 MG tablet Take 1 tablet by mouth daily. 3 Active naltrexone (DEPADE) 50 mg tablet 3 Active VIVITROL 380 mg SERR 3 Active OLANZapine (ZYPREXA) 10 MG tablet Take 1 tablet by mouth daily. 3 Active omeprazole (PRILOSEC) 20 mg capsule Take 1 capsule by mouth daily. 3 Active ondansetron (ZOFRAN-ODT) 4 MG disintegrating tablet Take 2 tablets by mouth 2 (two) times a day as needed. 3 Active polyethylene glycol (MIRALAX) 17 gram packet Take by mouth daily. 3 Active SENNA 8.6 mg tablet Take 1 tablet by mouth daily. 3 Active sucralfate (CARAFATE) 100 mg/mL suspension Take 10 mL by mouth 4 (four) times a day. 3 Active traZODone (DESYREL) 50 mg tablet Take 1 tablet by mouth daily. 3 Active prazosin (MINIPRESS) 1 MG capsule Take 1 mg by mouth nightly. 3 Active Encounters Date Type Department Care Team Description 02/19/2025 11:30 AM EDT Clinical Support [facility], Rapid ACCESS [address] [place] [address] Chela Orozco [facility] Substance use (Primary Dx) 02/19/2025 10:20 AM EDT Clinical Support [facility] [address] [place] [address] Mari Amaya [facility] Astrid Jones Substance use (Primary Dx) from Last 3 Months Social History Tobacco Use Types Packs/Day Years Used Date Smoking Tobacco: Never Assessed Comments Unknown Sex and Gender Information Value Date Recorded Sex Assigned at Female 11/17/2022 12:29 PM EDT Legal Sex Female 7:42 PM EDT Gender Identity Female 05/17/2023 4:17 PM EST Sexual Orientation Not on file Plan of Treatment Health Maintenance Due Date Last Done Comments Diabetes Screening 1965 HIV Lifetime Screening 1965 Hepatitis B Lifetime Screening 1963 Hepatitis C Antibody Lifetime Screening 1963 LIPID PANEL 1963 THRIVE SCREENING 1963 Oral Health Screen 05/04/1964 HEIP Disability Screen 12/02/1968 BEHAVIORAL HEALTH SCREEN 1975 DTAP/TDAP VACCINE (1 - Tdap) 12/02/1982 Cervical Cancer Screening 12/02/1984 Colposcopy 12/02/1984 PAP SMEAR 12/02/1984 Pap + HPV 12/02/1984 MAMMOGRAM 2003 Colonoscopy FOBT- Positive 12/02/2008 Colonoscopy 12/02/2008 Colorectal Cancer Screening 12/02/2008 FOBT 12/02/2008 Sigmoidoscopy 12/02/2008 Pneumonia Vaccine 50+ (1 of 1 - PCV) 12/02/2013 Zoster Vaccine (1 of 2) 12/02/2013 COVID-19 Vaccine (5 - season) 2024 04/11/2023, 11/15/2021, 02/02/2021, Additional history exists INFLUENZA VACCINE (#1) 2025 , 03/30/2017, 04/01/2016, Additional history exists Psych Substance Use Screen 02/19/2026 02/19/2025 RSV Immunization 60 Years and Older OR (1 - 1-dose 75+ series) 12/02/2038 HPV VACCINES Aged Out No longer eligi ble based on patient's age to complete this topic IPV VACCINES Aged Out No longer eligi ble based on patient's age to complete this topic MENINGOCOCCAL B Aged Out No longer el igible based on patient's age to complete this topic ROTAVIRUS VACCINES Aged Out No longer eligible based on patient's age to complete this topic
--- OUTSIDE RECORDS SUMMARY | 2025-02-27 16:37 | XMS_ITS | Referral Summary ---
Author Organization [facility] Address [address] [address] Phone Care Team Providers Care Development Geologist Name Role Phone Unavailable Primary Care Provider Unavailabl e Encounters Date Type Department Care Team Description 02/19/2025 11:30 AM EDT Clinical Support [facility], Rapid ACCESS [address] [place] [address] Chela Orozco LICSW Substance use (Primary Dx) 02/19/2025 10:20 AM EDT Clinical Support [facility] [address] [place] [phone] Mari Amaya POWERHOUSE LABORER Omojowo, Astrid Substance use (Primary Dx) from Last 3 Months Medications acamprosate (CAMPRAL) 333 mg tablet Take [...] 1 mg by mouth nightly. 3 Active Social History Tobacco Use Types Packs/Day Years Used Date Smoking Tobacco: Never Assessed Comments Unknown Sex and Gender Information Value Date Recorded Sex Assigned at Female 11/17/2022 12:29 PM EDT Legal Sex Female 7:42 PM EDT Gender Identity Female 05/17/2023 4:17 PM EST Sexual Orientation Not on file Plan of Treatment Not on file
--- OUTSIDE RECORDS SUMMARY | 2025-02-27 16:37 | XMS_ITS | Encounter Summary ---
Author Organization [facility] Address [address] [place] [address] Care Team Providers Care Tree Cutter Name Role Phone Sadi Mott MD Primary Care Provider [phone] Encounter Details Date Type Department Care Team (Late st Contact Info) Description 12/05/2024 Pharmacy Visit [facility] [address] [place] [address] Social History Tobacco Use Types Packs/Day Years Used Date Smoking Tobacco: Every Day Cigarettes Alcohol Use Standard Drinks/Week Comments Not Currently 0 (1 standard drink = 0.6 oz pur e alcohol) Housing Stability - SDOH Screener Answer Date Recorded What is your living situation today? Unsteady ho using 12/05/2024 Do you need help with Housing/Chcf resources? Not on file 12/05/2024 Patient indicated [...] Description 03/11/2025 1:30 PM EDT Office Visit [facility] [address] [place] [address] Sailaja Brooke NP [address] [place] [address] documented as of this encounter Visit Diagnoses Not on filedocumented in this encounter Care Teams Tree Cutter Relationship Specialty Start Date End Date Sadi Mott MD [address] [place] [address] [address] [place] [address] PCP - General Internal Medicine 03/26/23 documented as of this encounter
--- OUTSIDE RECORDS SUMMARY | 2025-02-27 16:37 | XMS_ITS | Encounter Summary ---
Author Organization [facility] Address [address] [place] [address] Care Team Providers Care Business Office Director Name Role Phone Sadi Mott MD Primary Care Provider [phone] Encounter Details Date Type Department Care Team (Late st Contact Info) Description 12/08/2024 Pharmacy Visit [facility] [address] [place] [address] Social History Tobacco Use Types Packs/Day Years Used Date Smoking Tobacco: Every Day Cigarettes Alcohol Use Standard Drinks/Week Comments Not Currently 0 (1 standard drink = 0.6 oz pur e alcohol) Housing Stability - SDOH Screener Answer Date Recorded What is your living situation today? Unsteady ho using 12/05/2024 Do you need help with Housing/Residential resources? Not on file 12/05/2024 Patient indicated [...] Description 03/11/2025 1:30 PM EDT Office Visit [facility] [address]rd [place] [address] Sailaja Brooke NP [address] [place] [address] documented as of this encounter Visit Diagnoses Not on filedocumented in this encounter Care Teams Business Office Director Relationship Specialty Start Date End Date Sadi Mott MD [address] [place] [address] [address] [place] [address] PCP - General Internal Medicine 03/26/23 documented as of this encounter
[2025-02-27 16:52] VITALS: BMI 28.3
[2025-02-27 16:55] VITALS: BP 137/85; PULSE 50; TEMP 36.6; O2SAT 97
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
[2025-02-27 20:00] VITALS: BP 116/71; PULSE 55; RESP 18; TEMP 36.8; O2SAT 100
--- NOTE | 2025-02-27 23:05 | HO.PM.IMCN ---
History of Present Illness Data of Consult Service Date: 02/27/25 Requesting physician: Matthew Perez Primary Care Provider: Unknown Physician HPI Reason for consult: medical H&P Patient is a 59-year-old female with a past medical history significant for depression, PTSD, history of cocaine use disorder, history of alcohol use disorder, transferred to adult Psychiatry from [facility] due to SI. Patient was in the emergency department for 8 days. On arrival to [facility] emergency department she did have elevated alcohol level. The patient reports that she has been sober for years. 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 She denies any chest pain, shortness of breath, nausea, vomiting, abdominal pain, URI symptoms, urinary symptoms, numbness or tingling. She has no medical concerns currently. Her medical history was reviewed. Review of Systems Constitutional: Constitutional: Denies chills, Denies fatigue, Denies fever(s), Denies headache(s) and Denies weakness Eyes: Eyes: Denies change in vision ENT: Denies headache(s), Denies nasal congestion and Denies sore throat Cardiovascular: Cardiovascular: Denies chest pain, Denies syncope, Denies rapid heart rate, Denies leg edema and Denies dyspnea Respiratory: Respiratory: Denies chest congestion, Denies cough, Denies dyspnea and Denies wheezing Gastrointestinal: Gastrointestinal: Denies abdominal pain, Denies nausea and Denies vomiting Genitourinary: Genitourinary: Denies difficulty voiding, Denies dysuria and Denies urinary urgency Musculoskeletal: Musculoskeletal: Denies back pain Integumentary/Breasts: Skin/Breast: Denies rash Neurologic: Denies confusion, Denies syncope, Denies headache(s) and Denies weakness Psychiatric: Psychiatric: Denies confusion Endocrine: Endocrine: Denies fatigue Hematologic/Lymphatic: Hematologic/Lymphatic: Denies easy bleeding and Denies easy bruising Allergic/Immunologic: Allergic/Immunologic: Denies wheezing [facility] Medical History (Updated 02/27/25 @ 23:34 by Agnes Winstno PA-C) Tobacco use disorder GERD (gastroesophageal reflux disease) Hypothyroid Depression Cocaine use Alcohol use disorder PTSD (post-traumatic stress disorder) Functional capacity: independent ambulation Social History Household Members: None Housing: Apartment Do you presently have visiting nurse or other home services: No Patient Tobacco Use Status: Current everyday Tobacco user Tobacco use type: Cigarette Cigarettes Per Day: 5 Smoked in Last 30 Days: Yes Have you been hit, kicked, punched, or otherwise hurt by someone within the past year? If so, by whom?: No Do you feel safe in your current relationship?: No Current Relationship Is there a partner from a previous relationship who is making you feel unsafe now?: No Are you made to feel afraid or neglected: No Advance Directives: No Advance Directives Information Provided: Yes Recently lost weight without trying: No Eating poorly because of decreased appetite: No Nutrition Risks: No Nutritional Risk Patient : No : No Poor oral hygiene: No Narrative: Smokes 5 cigarettes per day, denies alcohol or drug use. Meds Allergies Allergy/AdvReac Type Severity Reaction Status Date / Time No Known Allergies Allergy Verified 02/27/25 17:38 Active Medications: Current Medications Acetaminophen (Acetaminophen 325 Mg Tablet) 650 mg PO Q6H PRN PRN Reason: Headache/Pain, Scale 1-10 Al Hydroxide/Mg Hydroxide (Magnesium Hydrox/Alum Hydrox 30 Ml Oral.Susp) 30 ml PO Q6H PRN PRN Reason: Heartburn/Nausea Hydroxyzine HCl (Hydroxyzine Hcl 25 Mg Tablet) 25 mg PO Q6H PRN PRN Reason: mild anxiety Last Admin: 02/27/25 21:15 Dose: 25 mg Magnesium Hydroxide (Milk Of Magnesia 30 Ml Oral.Susp) 30 ml PO DAILY PRN PRN Reason: Constipation Nicotine (Nicotine 21 Mg Patch.Td24) 21 mg TRANSDERMA DAILY PRN PRN Reason: nicotine craving Nicotine Polacrilex (Nicotine Polacrilex Lozenge 2 Mg Lozenge) 2 mg BUCCAL Q2H PRN PRN Reason: Nicotine Cravings Trazodone HCl (Trazodone Hcl 50 Mg Tablet) 50 mg PO BEDTIME MRX1 PRN PRN Reason: Insomnia Last Admin: 02/27/25 22:51 Dose: 50 mg Home Medications ?Medication ?Instructions ?Recorded ?Confirmed ?Last Taken ?Type atorvastatin 20 mg tablet 20 mg PO DAILY 02/27/25 02/27/25 Unknown History clonidine HCl 0.1 mg tablet 0.1 mg PO QID 02/27/25 02/27/25 Unknown History famotidine 40 mg tablet 40 mg PO DAILY 02/27/25 02/27/25 Unknown History fluoxetine 40 mg capsule 40 mg PO DAILY 02/27/25 02/27/25 Unknown History levothyroxine 88 mcg tablet 88 mcg PO DAILY 02/27/25 02/27/25 Unknown History olanzapine 10 mg tablet 10 mg PO BEDTIME 02/27/25 02/27/25 Unknown History pantoprazole 40 mg tablet,delayed 40 mg PO BID 02/27/25 02/27/25 Unknown History release trazodone 50 mg tablet 100 mg PO BEDTIME PRN Insomnia 02/27/25 02/27/25 Unknown History Physical Exam Vital Signs and Narrative: Vital Signs: Last Vital Signs Temp 98 F 02/27/25 16:55 Pulse 50 02/27/25 16:55 BP 137/85 02/27/25 16:55 Pulse Ox 97 02/27/25 16:55 O2 Del Method Room Air 02/27/25 16:55 BMI result Body Mass Index 28.3 General: AOx3, no acute distress Resp: CTA bilaterally CVS: S1, S2, RRR GI: +BS, NT, no distention Skin: Warm, dry Neuro: Cranial nerves II-XII grossly intact bilaterally. Motor grossly intact bilaterally. Strength equal bilateral upper and lower extremities. Extremities: No pitting edema Psych: Appropriate affect Const: General: No confusion Orientation/consciousness: No confusion Neuro: General: No confusion Assessment and Plan (1) Medical clearance for psychiatric admission: Status: Acute (2) Tobacco use disorder: Status: Acute Plan Patient is a 59-year-old female with a past medical history significant for depression, PTSD, history of cocaine use disorder, history of alcohol use disorder, transferred to adult Psychiatry from [facility] due to SI. mood/SI - plan per psych hx substance use - pt denying recent use - recent etoh level elevated Tobacco use disorder - nicotine replacement therapy - smoking cessation encouraged GERD - continue PPI and famotidine Hypothyroid - continue levothyroxine Thank you for allowing me to participate in the pt's care. Signing off. Please contact the medical team if any questions or concerns.
[2025-02-28 08:00] VITALS: BP 106/60; PULSE 55; TEMP 36.8; O2SAT 97
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
[2025-02-28 09:23] LABS: Hemoglobin A1C 134.9946 umol/L; Total Hemoglobin (HGBA1C) 3363.0107 umol/L
[2025-02-28 09:35] LABS: Alanine Aminotransferase 44 U/L (0-31); Albumin Level 3.7 g/dL (3.5-5.0); Alkaline Phosphatase 175 U/L (39-117); Anion Gap 14 (12-20); Aspartate Amino Transferase 38 U/L (5-31); Blood Urea Nitrogen 11 mg/dL (9-16); Calcium 8.6 mg/dL (8.4-10.2); Carbon Dioxide 23 mmol/L (22-29); Chloride 110 mmol/L (96-108); Cholesterol 163 mg/dL (<200); Creatinine Clr Calc Pharmacy 66.8; Estimated Glomerular Filt Rate > 60; HDL Cholesterol 41 mg/dL (>40); Potassium 3.7 mmol/L (3.3-5.1); Sodium 143 mmol/L (135-145); Total Protein 6.2 g/dL (6.5-8.0); Triglycerides 184 mg/dL (<150)
[2025-02-28 09:50] LABS: Free T4 (Free Thyroxine) 0.96 ng/dL (0.71-1.85); Thyroid Stimulating Hormone 2.76 uIU/mL (0.32-4.0)
[2025-02-28] MEDS: Nicotine Polacrilex Lozenge 2 MG LOZENGE BUCCAL ×2 (10:57→17:40)
[2025-02-28 19:59] VITALS: BP 138/74; PULSE 68; RESP 15; TEMP 36.7; O2SAT 98
--- NOTE | 2025-03-01 08:36 | P.PNPSI_ITS ---
Subjective Subjective Date of Service: 03/01/25 Reason For Visit: Depression Unspecified Depression Interim History: Patient is depressed due to her mother passing. She was seen in her room. She was less engaged today. Irritable because this manual writer woke her up. She has not eaten her breakfast yet. She denied SI. Denied AVH. Review of Systems Constitutional: Denies chills, Denies fatigue, Denies fever(s), Denies headache(s) and Denies weakness Eyes: Denies change in vision Denies headache(s), Denies nasal congestion and Denies sore throat Cardiovascular: Denies chest pain, Denies syncope, Denies rapid heart rate, Denies leg edema and Denies dyspnea Respiratory: Denies chest congestion, Denies cough, Denies dyspnea and Denies wheezing Gastrointestinal: Denies abdominal pain, Denies nausea and Denies vomiting Musculoskeletal: Denies back pain Skin/Breast: Denies rash Denies confusion, Denies syncope, Denies headache(s) and Denies weakness Psychiatric: Denies confusion Endocrine: Denies fatigue Hematologic/Lymphatic: Denies easy bleeding and Denies easy bruising Allergic/Immunologic: Denies wheezing Mental Status Exam Mental Status Exam Narrative: General appearance: Hopsital attire. fair hygiene.?Missing upper teeth. Eye contact: WNL. Musculoskeletal: Normal muscle strength/tone, Normal gait and station, No abnormal involuntary movements like tremors, EPS or dyskinesia. No psychomotor agitation or retardation. Normal posture.??? Manner/behavior: cooperative and not guarded Speech:? Fluent, with normal rate, tone and volume. Language: No receptive or expressive language impairment? Mood: I'm sad. Affect: Constricted range, congruent to mood. Thought process/associations: Linear with no flight of ideas or loose associations.?? Thought content:?No delusions or paranoia.?? Hallucinations: No auditory, visual or other hallucinations Suicidality/self-destructive behavior: none, future oriented, hopeful. ? Homicidally/violence: none.? Reliability: poor due to memory and cognitive function.? ? Judgment: poor.? ? Insight: poor Cognition: Only oriented to self. Fully alert. Some word finding difficulty. Attention, concentration: impaired.? Impulse control and emotional regulation: preserved. Intelligence estimate: low-average.? Diagnostics Vital Signs (24Hr): Vital Signs - 24 hr 02/28/25 19:59 Temperature 98.1 F Pulse Rate 68 Respiratory Rate 15 Blood Pressure 138/74 Pulse Oximetry 98 BMI result Body Mass Index 28.3 Labs 02/28/25 08:36 Labs: Laboratory Results - last 48 hr 02/28/25 08:36 Hold Purple Top SEE NOTE Sodium 143 Potassium 3.7 Chloride 110 H Carbon Dioxide 23 Anion Gap 14 BUN 11 Creatinine 0.94 Estim Creat Clear Calc 66.8 Estimated GFR > 60 Random Glucose 207 H Estimat Average Glucose 120 Hemoglobin A1c % 5.8 Calcium 8.6 Total Bilirubin 0.3 AST 38 H ALT 44 H Alkaline Phosphatase 175 H Total Protein 6.2 L Albumin 3.7 Triglycerides 184 H Cholesterol 163 LDL Cholesterol, Calc 86 HDL Cholesterol 41 TSH 2.76 Free T4 0.96 Medications Medications Current Medications Acetaminophen (Acetaminophen 325 Mg Tablet) 650 mg PO Q6H PRN PRN Reason: Headache/Pain, Scale 1-10 Last Admin: 02/28/25 22:03 Dose: 650 mg Al Hydroxide/Mg Hydroxide (Magnesium Hydrox/Alum Hydrox 30 Ml Oral.Susp) 30 ml PO Q6H PRN PRN Reason: Heartburn/Nausea Atorvastatin Calcium (Atorvastatin Calcium 20 Mg Tablet) 20 mg PO DAILY [facility] Clonidine HCl (Clonidine Hcl 0.1 Mg Tablet) 0.1 mg PO TID PRN; Protocol PRN Reason: anxiety/restlessness Famotidine (Famotidine 20 Mg Tablet) 40 mg PO BEDTIME [facility] Last Admin: 02/28/25 21:04 Dose: 40 mg Fluoxetine HCl (Fluoxetine Hcl 20 Mg Capsule) 40 mg PO DAILY [facility] Folic Acid (Folic Acid 1 Mg Tablet) 1 mg PO DAILY [facility] Hydroxyzine HCl (Hydroxyzine Hcl 25 Mg Tablet) 25 mg PO Q6H PRN PRN Reason: mild anxiety Last Admin: 02/28/25 22:03 Dose: 25 mg Levothyroxine Sodium (Levothyroxine Sodium 88 Mcg Tablet) 88 mcg PO DAILY@0600 [facility] Last Admin: 03/01/25 06:41 Dose: 88 mcg Magnesium Hydroxide (Milk Of Magnesia 30 Ml Oral.Susp) 30 ml PO DAILY PRN PRN Reason: Constipation Multivitamins/Vitamin C (Multivitamin Tablet) 1 tab PO DAILY [facility] Nicotine (Nicotine 21 Mg Patch.Td24) 21 mg TRANSDERMA DAILY PRN PRN Reason: nicotine craving Nicotine Polacrilex (Nicotine Polacrilex Lozenge 2 Mg Lozenge) 2 mg BUCCAL Q2H PRN PRN Reason: Nicotine Cravings Last Admin: 02/28/25 17:40 Dose: 2 mg Olanzapine (Olanzapine 10 Mg Tablet) 10 mg PO BEDTIME [facility] Last Admin: 02/28/25 21:04 Dose: 10 mg Thiamine HCl (Thiamine Hcl 100 Mg Tablet) 100 mg PO DAILY [facility] Trazodone HCl (Trazodone Hcl 100 Mg Tablet) 100 mg PO BEDTIME MRX1 [facility] Last Admin: 02/28/25 22:03 Dose: 100 mg Allergies Allergies Allergy/AdvReac Type Severity Reaction Status Date / Time No Known Allergies Allergy Verified 02/27/25 17:38 Assessment & Plan Assessment & Plan (1) Major depression: Status: Acute Code(s): F32.9 - Major depressive disorder, single episode, unspecified (2) Alcohol dependence: Status: Acute Code(s): F10.20 - Alcohol dependence, uncomplicated (3) PTSD (post-traumatic stress disorder): Status: Acute Code(s): F43.10 - Post-traumatic stress disorder, unspecified (4) Cognitive deficit as late effect of cerebrovascular accident (CVA): Status: Acute Code(s): I69.319 - Unspecified symptoms and signs involving cognitive functions following cerebral infarction Plan 59 yo female who is transferred from [facility] after she presented there with SI and agitation. Per the chart and referral paperwork patient had originally presented to the [facility] (substance rehab community treatment center) to look for a place to go for treatment for her alcohol use. She was intoxicated and voicing SI and was agitated and was sent to the ED at [facility]. She initially presented to [facility] 02/19/2025 and was at [facility] until 02/27/25 when she transferred to [facility]. Patient has significant cognitive and memory impairment. Likely combination of alcohol use disorder, substance use and reported cerebrovascular disease. PLAN: - Admit to inpatient psychiatry - CV - Collateral information from family and providers. - Milieu treatment and group therapy. - Medications: Continue current medications from [facility]. - Social work evaluation. - Disposition planning. 03/01: continue current management and treatment plan. Await results of labs (B12, folate, TSH, CBC) Reason for continued inpatient stay Substantial Risk for: harm to self, inability to function, rapid decompensation and med/psych decompensation Time Spent With Patient Time: Total time managing care of this patient today ____ minutes.
[2025-03-01 09:20] VITALS: BP 108/62; PULSE 70; RESP 20; TEMP 37.3; O2SAT 96
[2025-03-01] MEDS: Nicotine Polacrilex Lozenge 2 MG LOZENGE BUCCAL ×2 (14:55→16:49)
[2025-03-01 20:00] VITALS: BP 101/62; PULSE 71; RESP 16; TEMP 37.2; O2SAT 99
[2025-03-02 08:00] VITALS: BP 104/60; TEMP 36.5; O2SAT 97
--- NOTE | 2025-03-02 09:45 | HO.PSYCHPN ---
Subjective Subjective Date of Service: 03/02/25 Reason For Visit: Depression Unspecified Depression Interim History: Patient noted to be sleeping until the afternoon yesterday. She is sleeping late into the morning today. Patient seen in her room. She had the covers over her head. She would not remove them. She said she was really sad because her mother . She has been in her room most of the day. She refused labs this AM. She has not been eating well. She denied SI. Denied AVH. Review of Systems Constitutional: Denies chills, Denies fatigue, Denies fever(s), Denies headache(s) and Denies weakness Eyes: Denies change in vision Denies headache(s), Denies nasal congestion and Denies sore throat Cardiovascular: Denies chest pain, Denies syncope, Denies rapid heart rate, Denies leg edema and Denies dyspnea Respiratory: Denies chest congestion, Denies cough, Denies dyspnea and Denies wheezing Gastrointestinal: Denies abdominal pain, Denies nausea and Denies vomiting Musculoskeletal: Denies back pain Skin/Breast: Denies rash Denies confusion, Denies syncope, Denies headache(s) and Denies weakness Psychiatric: Denies confusion Endocrine: Denies fatigue Hematologic/Lymphatic: Denies easy bleeding and Denies easy bruising Allergic/Immunologic: Denies wheezing Mental Status Exam Mental Status Exam Narrative: General appearance: Hopsital attire. fair hygiene.?Missing upper teeth. Eye contact: WNL. Musculoskeletal: Normal muscle strength/tone, Normal gait and station, No abnormal involuntary movements like tremors, EPS or dyskinesia. No psychomotor agitation or retardation. Normal posture.??? Manner/behavior: cooperative and not guarded Speech:? Fluent, with normal rate, tone and volume. Language: No receptive or expressive language impairment? Mood: I'm sad. Affect: Constricted range, congruent to mood. Thought process/associations: Linear with no flight of ideas or loose associations.?? Thought content:?No delusions or paranoia.?? Hallucinations: No auditory, visual or other hallucinations Suicidality/self-destructive behavior: none, future oriented, hopeful. ? Homicidally/violence: none.? Reliability: poor due to memory and cognitive function.? ? Judgment: poor.? ? Insight: poor Cognition: Only oriented to self. Fully alert. Some word finding difficulty. Attention, concentration: impaired.? Impulse control and emotional regulation: preserved. Intelligence estimate: low-average.? Diagnostics Vital Signs (24Hr): Vital Signs - 24 hr 03/01/25 20:00 03/02/25 08:00 Temperature 98.9 F 97.7 F Pulse Rate 71 Respiratory Rate 16 Blood Pressure 101/62 104/60 Pulse Oximetry 99 97 Oxygen Delivery Method Room Air Room Air BMI result Body Mass Index 28.3 Labs 02/28/25 08:36 Labs: Laboratory Results - last 48 hr 02/28/25 08:36 TSH 2.76 Free T4 0.96 Medications Medications Current Medications Acetaminophen (Acetaminophen 325 Mg Tablet) 650 mg PO Q6H PRN PRN Reason: Headache/Pain, Scale 1-10 Last Admin: 02/28/25 22:03 Dose: 650 mg Al Hydroxide/Mg Hydroxide (Magnesium Hydrox/Alum Hydrox 30 Ml Oral.Susp) 30 ml PO Q6H PRN PRN Reason: Heartburn/Nausea Atorvastatin Calcium (Atorvastatin Calcium 20 Mg Tablet) 20 mg PO DAILY [facility] Last Admin: 03/02/25 09:20 Dose: 20 mg Clonidine HCl (Clonidine Hcl 0.1 Mg Tablet) 0.1 mg PO TID PRN; Protocol PRN Reason: anxiety/restlessness Famotidine (Famotidine 20 Mg Tablet) 40 mg PO BEDTIME [facility] Last Admin: 03/01/25 20:24 Dose: 40 mg Fluoxetine HCl (Fluoxetine Hcl 20 Mg Capsule) 40 mg PO DAILY [facility] Last Admin: 03/02/25 09:20 Dose: 40 mg Folic Acid (Folic Acid 1 Mg Tablet) 1 mg PO DAILY [facility] Last Admin: 03/02/25 09:20 Dose: 1 mg Hydroxyzine HCl (Hydroxyzine Hcl 25 Mg Tablet) 25 mg PO Q6H PRN PRN Reason: mild anxiety Last Admin: 03/01/25 16:48 Dose: 25 mg Levothyroxine Sodium (Levothyroxine Sodium 88 Mcg Tablet) 88 mcg PO DAILY@0600 [facility] Last Admin: 03/02/25 06:17 Dose: 88 mcg Magnesium Hydroxide (Milk Of Magnesia 30 Ml Oral.Susp) 30 ml PO DAILY PRN PRN Reason: Constipation Multivitamins/Vitamin C (Multivitamin Tablet) 1 tab PO DAILY [facility] Last Admin: 03/02/25 09:20 Dose: 1 tab Nicotine (Nicotine 21 Mg Patch.Td24) 21 mg TRANSDERMA DAILY PRN PRN Reason: nicotine craving Nicotine Polacrilex (Nicotine Polacrilex Lozenge 2 Mg Lozenge) 2 mg BUCCAL Q2H PRN PRN Reason: Nicotine Cravings Last Admin: 03/01/25 16:49 Dose: 2 mg Olanzapine (Olanzapine 10 Mg Tablet) 10 mg PO BEDTIME [facility] Last Admin: 03/01/25 20:24 Dose: 10 mg Thiamine HCl (Thiamine Hcl 100 Mg Tablet) 100 mg PO DAILY [facility] Last Admin: 03/02/25 09:20 Dose: 100 mg Trazodone HCl (Trazodone Hcl 100 Mg Tablet) 100 mg PO BEDTIME MRX1 [facility] Last Admin: 03/01/25 22:07 Dose: 100 mg Allergies Allergies Allergy/AdvReac Type Severity Reaction Status Date / Time No Known Allergies Allergy Verified 02/27/25 17:38 Assessment & Plan Assessment & Plan (1) Major depression: Status: Acute Code(s): F32.9 - Major depressive disorder, single episode, unspecified (2) Alcohol dependence: Status: Acute Code(s): F10.20 - Alcohol dependence, uncomplicated (3) PTSD (post-traumatic stress disorder): Status: Acute Code(s): F43.10 - Post-traumatic stress disorder, unspecified (4) Cognitive deficit as late effect of cerebrovascular accident (CVA): Status: Acute Code(s): I69.319 - Unspecified symptoms and signs involving cognitive functions following cerebral infarction Plan 59 yo female who is transferred from [facility] after she presented there with SI and agitation. Per the chart and referral paperwork patient had originally presented to the [facility] (substance rehab community treatment center) to look for a place to go for treatment for her alcohol use. She was intoxicated and voicing SI and was agitated and was sent to the ED at [facility]. She initially presented to [facility] 02/19/2025 and was at [facility] until 02/27/25 when she transferred to [facility]. Patient has significant cognitive and memory impairment. Likely combination of alcohol use disorder, substance use and reported cerebrovascular disease. PLAN: - Admit to inpatient psychiatry - CV - Collateral information from family and providers. - Milieu treatment and group therapy. - Medications: Continue current medications from [facility]. - Social work evaluation. - Disposition planning. 03/01: continue current management and treatment plan. Await results of labs (B12, folate, TSH, CBC) 03/02: Lower Olanzapine to 5mg HS. Reason for continued inpatient stay Substantial Risk for: harm to self, inability to function and rapid decompensation Time Spent With Patient Time: Total time managing care of this patient today ____ minutes.
[2025-03-02] MEDS: Nicotine Polacrilex Lozenge 2 MG LOZENGE BUCCAL (14:06)
[2025-03-02 19:52] VITALS: BP 107/69; PULSE 98; RESP 15; TEMP 36.6; O2SAT 97
[2025-03-03 08:00] VITALS: BP 112/61; PULSE 57; TEMP 36.3; O2SAT 99
--- NOTE | 2025-03-03 16:22 | HO.PSYCHPN ---
Subjective Subjective Date of Service: 03/03/25 Reason For Visit: Depression Unspecified Depression Subjective Notes: Conditional Voluntary and 3 Day Healthcare Proxy: No Guardianship: No Medical Problems Affecting Mental Status: No Interim History: This is the fifth recovery intervention. I am so sick of this. I am leaving Sunday, naked, smoking and drinking. Recent section [place] discharge from [place] pt reports. She believes within the past month, and they did not win-I got out anyway. Significant treatment resistance verbalized today- ?recent CVA's contributing to sx presentation. Attempting to discuss options. The street is the option. Discussed her concerns about loss of belongings and that she will return to community with nothing. No interest in treatment she reports at this time. Medication Compliance: Intermittent Side effects from medications: No Attending Groups: No Review of Systems Medical Review of Systems: unchanged Review of Systems Review of Systems Denies Mental Status Exam Mental Status Exam Patient Appearance: Disheveled Patient Orientation: Person, Place and Situation Level of Consciousness: Alert Patient Behavior: Guarded, Talkative, Suspicious and Distractible Mood Description: Hostile and Labile Affect Description: Labile Patient Cognition Impaired: Yes Ability to Follow Directions: Fair Speech Pattern: Spontaneous Speech Memory Description: Episodic Impaired Hallucinations: None Delusions: Paranoid Ideation Perceptual Disturbances: Depersonalization and Derealization Thought Process: Distracted, Rumination and Confusion Thought Content: positive for Perseveration and positive for Suicidal Ideation (denies) Depressive Symptoms: Increased Fatigue Judgement: Poor Diagnostics Vital Signs (24Hr): Vital Signs - 24 hr 03/02/25 19:52 03/03/25 08:00 Temperature 98 F 97.3 F Pulse Rate 98 57 Respiratory Rate 15 Blood Pressure 107/69 112/61 Pulse Oximetry 97 99 Oxygen Delivery Method Room Air BMI result Body Mass Index 28.3 Labs 02/28/25 08:36 Medications Medications Current Medications Acetaminophen (Acetaminophen 325 Mg Tablet) 650 mg PO Q6H PRN PRN Reason: Headache/Pain, Scale 1-10 Last Admin: 03/03/25 12:18 Dose: 650 mg Al Hydroxide/Mg Hydroxide (Magnesium Hydrox/Alum Hydrox 30 Ml Oral.Susp) 30 ml PO Q6H PRN PRN Reason: Heartburn/Nausea Atorvastatin Calcium (Atorvastatin Calcium 20 Mg Tablet) 20 mg PO DAILY [facility] Last Admin: 03/03/25 11:22 Dose: 20 mg Clonidine HCl (Clonidine Hcl 0.1 Mg Tablet) 0.1 mg PO TID PRN; Protocol PRN Reason: anxiety/restlessness Famotidine (Famotidine 20 Mg Tablet) 40 mg PO BEDTIME [facility] Last Admin: 03/02/25 20:23 Dose: 40 mg Fluoxetine HCl (Fluoxetine Hcl 20 Mg Capsule) 40 mg PO DAILY [facility] Last Admin: 03/03/25 11:22 Dose: 40 mg Folic Acid (Folic Acid 1 Mg Tablet) 1 mg PO DAILY [facility] Last Admin: 03/03/25 11:22 Dose: 1 mg Hydroxyzine HCl (Hydroxyzine Hcl 25 Mg Tablet) 25 mg PO Q6H PRN PRN Reason: mild anxiety Last Admin: 03/02/25 14:06 Dose: 25 mg Levothyroxine Sodium (Levothyroxine Sodium 88 Mcg Tablet) 88 mcg PO DAILY@0600 [facility] Last Admin: 03/03/25 06:38 Dose: 88 mcg Magnesium Hydroxide (Milk Of Magnesia 30 Ml Oral.Susp) 30 ml PO DAILY PRN PRN Reason: Constipation Multivitamins/Vitamin C (Multivitamin Tablet) 1 tab PO DAILY [facility] Last Admin: 03/03/25 11:22 Dose: 1 tab Nicotine (Nicotine 21 Mg Patch.Td24) 21 mg TRANSDERMA DAILY PRN PRN Reason: nicotine craving Nicotine Polacrilex (Nicotine Polacrilex Lozenge 2 Mg Lozenge) 2 mg BUCCAL Q2H PRN PRN Reason: Nicotine Cravings Last Admin: 03/02/25 14:06 Dose: 2 mg Olanzapine (Olanzapine 5 Mg Tablet) 5 mg PO BEDTIME [facility] Last Admin: 03/02/25 20:23 Dose: 5 mg Thiamine HCl (Thiamine Hcl 100 Mg Tablet) 100 mg PO DAILY [facility] Last Admin: 03/03/25 11:22 Dose: 100 mg Trazodone HCl (Trazodone Hcl 100 Mg Tablet) 100 mg PO BEDTIME MRX1 [facility] Last Admin: 03/02/25 22:14 Dose: 100 mg Allergies Allergies Allergy/AdvReac Type Severity Reaction Status Date / Time No Known Allergies Allergy Verified 02/27/25 17:38 Assessment & Plan Assessment & Plan (1) Major depression: Status: Acute Code(s): F32.9 - Major depressive disorder, single episode, unspecified (2) Alcohol dependence: Status: Acute Code(s): F10.20 - Alcohol dependence, uncomplicated (3) PTSD (post-traumatic stress disorder): Status: Acute Code(s): F43.10 - Post-traumatic stress disorder, unspecified (4) Cognitive deficit as late effect of cerebrovascular accident (CVA): Status: Acute Code(s): I69.319 - Unspecified symptoms and signs involving cognitive functions following cerebral infarction Plan 59 yo female who is transferred from [facility] after she presented there with SI and agitation. Per the chart and referral paperwork patient had originally presented to the [facility] (substance rehab community treatment center) to look for a place to go for treatment for her alcohol use. She was intoxicated and voicing SI and was agitated and was sent to the ED at [facility]. She initially presented to [facility] 02/19/2025 and was at [facility] until 02/27/25 when she transferred to [facility]. Patient has significant cognitive and memory impairment. Likely combination of alcohol use disorder, substance use and reported cerebrovascular disease. PLAN: - Admit to inpatient psychiatry - CV - Collateral information from family and providers. - Milieu treatment and group therapy. - Medications: Continue current medications from [facility]. - Social work evaluation. - Disposition planning. 03/01: continue current management and treatment plan. Await results of labs (B12, folate, TSH, CBC) 03/02: Lower Olanzapine to 5mg HS. 03/03: Refusal of care Reason for continued inpatient stay Substantial Risk for: rapid decompensation and med/psych decompensation Time Spent With Patient Time: Total time managing care of this patient today ____ minutes.
[2025-03-03] MEDS: Nicotine Polacrilex Lozenge 2 MG LOZENGE BUCCAL (16:33)
[2025-03-03 20:00] VITALS: BP 115/62; PULSE 60; RESP 16; TEMP 36.3; O2SAT 99
--- NOTE | 2025-03-04 12:36 | HO.PSYCHPN ---
Subjective Subjective Date of Service: 03/05/25 Reason For Visit: Depression Unspecified Depression Subjective Notes: Conditional Voluntary and 3 Day Healthcare Proxy: No Guardianship: No Medical Problems Affecting Mental Status: No Interim History: Refused to talk with tw x 2 today. Head under the blankets, maybe later . Refusal of care/meds continues. Medication Compliance: Intermittent Side effects from medications: No Attending Groups: No Review of Systems Acute medical concerns: Yes Medical Review of Systems: unchanged Review of Systems Review of Systems Yes Unobtainable due to mental status Mental Status Exam Mental Status Exam Patient Appearance: Disheveled Patient Orientation: Person, Place and Situation Level of Consciousness: Alert Patient Behavior: Guarded, Talkative, Suspicious and Distractible Mood Description: Hostile and Labile Affect Description: Labile Patient Cognition Impaired: Yes Ability to Follow Directions: Fair Speech Pattern: Spontaneous Speech Memory Description: Episodic Impaired Hallucinations: None Delusions: Paranoid Ideation Perceptual Disturbances: Depersonalization and Derealization Thought Process: Distracted, Rumination and Confusion Thought Content: positive for Persever[place] and positive for Suicidal Ideation (denies) Depressive Symptoms: Increased Fatigue Judgement: Poor Diagnostics Vital Signs (24Hr): Vital Signs - 24 hr 03/03/25 20:00 Temperature 97.4 F Pulse Rate 60 Respiratory Rate 16 Blood Pressure 115/62 Pulse Oximetry 99 Oxygen Delivery Method Room Air BMI result Body Mass Index 28.3 Labs 02/28/25 08:36 Medications Medications Current Medications Acetaminophen (Acetaminophen 325 Mg Tablet) 650 mg PO Q6H PRN PRN Reason: Headache/Pain, Scale 1-10 Last Admin: 03/03/25 12:18 Dose: 650 mg Al Hydroxide/Mg Hydroxide (Magnesium Hydrox/Alum Hydrox 30 Ml Oral.Susp) 30 ml PO Q6H PRN PRN Reason: Heartburn/Nausea Atorvastatin Calcium (Atorvastatin Calcium 20 Mg Tablet) 20 mg PO DAILY [facility] Last Admin: 03/04/25 09:59 Dose: Not Given Benzocaine (Benzocaine 20 % Oral Gel 9 Gm Tube) 1 appl MUCOUS MEM QID PRN; Protocol PRN Reason: tooth ache Clonidine HCl (Clonidine Hcl 0.1 Mg Tablet) 0.1 mg PO TID PRN; Protocol PRN Reason: anxiety/restlessness Famotidine (Famotidine 20 Mg Tablet) 40 mg PO BEDTIME [facility] Last Admin: 03/03/25 20:12 Dose: 40 mg Fluoxetine HCl (Fluoxetine Hcl 20 Mg Capsule) 40 mg PO DAILY [facility] Last Admin: 03/04/25 09:59 Dose: Not Given Folic Acid (Folic Acid 1 Mg Tablet) 1 mg PO DAILY [facility] Last Admin: 03/04/25 10:00 Dose: Not Given Hydroxyzine HCl (Hydroxyzine Hcl 25 Mg Tablet) 25 mg PO Q6H PRN PRN Reason: mild anxiety Last Admin: 03/03/25 20:13 Dose: 25 mg Levothyroxine Sodium (Levothyroxine Sodium 88 Mcg Tablet) 88 mcg PO DAILY@0600 [facility] Last Admin: 03/04/25 06:31 Dose: 88 mcg Magnesium Hydroxide (Milk Of Magnesia 30 Ml Oral.Susp) 30 ml PO DAILY PRN PRN Reason: Constipation Multivitamins/Vitamin C (Multivitamin Tablet) 1 tab PO DAILY [facility] Last Admin: 03/04/25 10:00 Dose: Not Given Nicotine (Nicotine 21 Mg Patch.Td24) 21 mg TRANSDERMA DAILY PRN PRN Reason: nicotine craving Nicotine Polacrilex (Nicotine Polacrilex Lozenge 2 Mg Lozenge) 2 mg BUCCAL Q2H PRN PRN Reason: Nicotine Cravings Last Admin: 03/03/25 16:33 Dose: 2 mg Olanzapine (Olanzapine 5 Mg Tablet) 5 mg PO BEDTIME [facility] Last Admin: 03/03/25 20:13 Dose: 5 mg Ondansetron HCl (Ondansetron Odt 4 Mg Tab.Rapdis) 4 mg TRANSLINGU Q6H PRN PRN Reason: Nausea and Vomiting Thiamine HCl (Thiamine Hcl 100 Mg Tablet) 100 mg PO DAILY [facility] Last Admin: 03/04/25 10:00 Dose: Not Given Trazodone HCl (Trazodone Hcl 100 Mg Tablet) 100 mg PO BEDTIME MRX1 [facility] Last Admin: 03/03/25 22:08 Dose: 100 mg Allergies Allergies Allergy/AdvReac Type Severity Reaction Status Date / Time No Known Allergies Allergy Verified 02/27/25 17:38 Assessment & Plan Assessment & Plan (1) Major depression: Status: Acute Code(s): F32.9 - Major depressive disorder, single episode, unspecified (2) Alcohol dependence: Status: Acute Code(s): F10.20 - Alcohol dependence, uncomplicated (3) PTSD (post-traumatic stress disorder): Status: Acute Code(s): F43.10 - Post-traumatic stress disorder, unspecified (4) Cognitive deficit as late effect of cerebrovascular accident (CVA): Status: Acute Code(s): I69.319 - Unspecified symptoms and signs involving cognitive functions following cerebral infarction Plan 59 yo female who is transferred from [facility] after she presented there with SI and agitation. Per the chart and referral paperwork patient had originally presented to the [facility] (substance rehab community treatment center) to look for a place to go for treatment for her alcohol use. She was intoxicated and voicing SI and was agitated and was sent to the ED at [facility]. She initially presented to [facility] 02/19/2025 and was at [facility] until 02/27/25 when she transferred to [facility]. Patient has significant cognitive and memory impairment. Likely combination of alcohol use disorder, substance use and reported cerebrovascular disease. PLAN: - Admit to inpatient psychiatry - CV - Collateral information from family and providers. - Milieu treatment and group therapy. - Medications: Continue current medications from [facility]. - Social work evaluation. - Disposition planning. 03/01: continue current management and treatment plan. Await results of labs (B12, folate, TSH, CBC) 03/02: Lower Olanzapine to 5mg HS. 03/04: Continue to attempt alliance and provide treatment. Reason for continued inpatient stay Substantial Risk for: rapid decompensation and med/psych decompensation Time Spent With Patient Time: Total time managing care of this patient today ____ minutes.
[2025-03-04] MEDS: Nicotine Polacrilex Lozenge 2 MG LOZENGE BUCCAL ×2 (17:43→19:37)
[2025-03-04 20:00] VITALS: BP 112/71; PULSE 61; RESP 16; TEMP 37; O2SAT 99
[2025-03-05 07:00] VITALS: BMI 34.9
[2025-03-05 08:00] VITALS: BP 120/64; PULSE 62; RESP 16; TEMP 36.9; O2SAT 97
--- NOTE | 2025-03-05 10:19 | HO.PSYCHPN ---
Subjective Subjective Date of Service: 03/05/25 Reason For Visit: Depression Unspecified Depression Subjective Notes: Conditional Voluntary and 3 Day Healthcare Proxy: No Guardianship: No Medical Problems Affecting Mental Status: No Interim History: TDN to 03/06. No wanting to talk today. Awake, in bed, minimal responses, blankets over her head. Talked with her best friend Brisa Devries. Brisa is a nurse and has known pt since childhood and has been a good friend for her. Brisa reports pt had weighted 280lbs. 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 With her alcohol use, she now weighs under 140 lbs. (215.6lbs on admit). Pt has GI issues including projectile vomiting, decrease in intake, decrease in appetite, hx of GIB. Pt's STM is poor. She has had 2 CVA's from drinking. Mom was able to secure her an apt. in [place], however, pt, when Brisa visited, found the home unkept, not clean, cups of vomit were on the table. Pt was neglectful of her self care as well. Mother, remarried, moved to [place] with her new . As pt was lonely, she was panhandling for money, soliciting med from the street, bringing homless people to her home as she was needing companionship. Mom had been terminally ill. She did a Section 35 on pt from [place], when she was dying. Pt was recently sent to [place] and was recently released. When released she jumped from an Uber, ended up at [facility], then [facility], then [facility]. She lost 2 bag of clothing (new ) during these transfers that mother purchased for her. Unfortunately, mother has recently . Mother was pt's passenger relations representative payee, Brisa is willing to help pt with that, as pt is not close to mother's . Pt's plan is to continue to be homeless and return to drinking so she may -she has indicated this to Brisa. Pt is well known to police with a significant record. Officer Constantin Myers of [place] knows pt well and [facility] [place] are involved for over 5 years Brisa believes pt needs [facility] level of care. She hopes we will be able to make arrangements with [place] or a place close to [place] so she and pt's friends may continue to include her in their lives. At this time, pt has lost her apartment and her cat Brisa may be reached at [email or web address], [address] [facility] [facility] [address] [place] [address]. She is available to pt as needed. Brisa reports, by history, pt had 9 years of sobriety and did well. She is hopeful we can assist pt to get back to that level of functioning. The above was reviewed with pt. Her only response was f---you . Medication Compliance: Intermittent Side effects from medications: No Attending Groups: No Review of Systems Pt will not allow assessment Medical Review of Systems: unchanged Review of Systems Review of Systems Yes Unobtainable due to mental status Mental Status Exam Mental Status Exam Patient Appearance: Fatigued, Disheveled and Unkempt Patient Orientation: Person Level of Consciousness: Awake Patient Behavior: Guarded, Suspicious, Swearing, Anxious, Fearful, Resistive to Care, Avoidant, Fatigued, Distractible, Confused, Isolative, Uncooperative and Poor Eye Contact Mood Description: Depressed and Hostile Affect Description: Flat Patient Cognition Impaired: Yes Ability to Follow Directions: Fair Speech Pattern: Impoverished and Spontaneous Speech Memory Description: Remote Impaired, Episodic Impaired and Recent Impaired Hallucinations: None (??) Delusions: Being Controlled and Paranoid Ideation Perceptual Disturbances: Depersonalization and Derealization Thought Process: Illogical, Rumination and Evasive Thought Content: positive for [place], positive for Circumstantial, positive for Perseveration and positive for Suicidal Ideation Depressive Symptoms: Increased Irritability, Loss of Int. in Activity, Feelings of Worthlessness, Hopelessness, Isolating-Friends/Family, Unhappiness, Increased Fatigue, Thoughts of /Suicide, Low Self Esteem and Loss of Energy Judgement: Poor Diagnostics Vital Signs (24Hr): Vital Signs - 24 hr 03/04/25 20:00 Temperature 98.6 F Pulse Rate 61 Respiratory Rate 16 Blood Pressure 112/71 Pulse Oximetry 99 Oxygen Delivery Method Room Air BMI result Body Mass Index 28.3 Labs 02/28/25 08:36 Medications Medications Current Medications Acetaminophen (Acetaminophen 325 Mg Tablet) 650 mg PO Q6H PRN PRN Reason: Headache/Pain, Scale 1-10 Last Admin: 03/04/25 15:04 Dose: 650 mg Al Hydroxide/Mg Hydroxide (Magnesium Hydrox/Alum Hydrox 30 Ml Oral.Susp) 30 ml PO Q6H PRN PRN Reason: Heartburn/Nausea Atorvastatin Calcium (Atorvastatin Calcium 20 Mg Tablet) 20 mg PO DAILY [facility] Last Admin: 03/04/25 09:59 Dose: Not Given Benzocaine (Benzocaine 20 % Oral Gel 9 Gm Tube) 1 appl MUCOUS MEM QID PRN; Protocol PRN Reason: tooth ache Clonidine HCl (Clonidine Hcl 0.1 Mg Tablet) 0.1 mg PO TID PRN; Protocol PRN Reason: anxiety/restlessness Famotidine (Famotidine 20 Mg Tablet) 40 mg PO BEDTIME [facility] Last Admin: 03/04/25 21:58 Dose: 40 mg Fluoxetine HCl (Fluoxetine Hcl 20 Mg Capsule) 40 mg PO DAILY [facility] Last Admin: 03/04/25 09:59 Dose: Not Given Folic Acid (Folic Acid 1 Mg Tablet) 1 mg PO DAILY [facility] Last Admin: 03/04/25 10:00 Dose: Not Given Hydroxyzine HCl (Hydroxyzine Hcl 25 Mg Tablet) 25 mg PO Q6H PRN PRN Reason: mild anxiety Last Admin: 03/04/25 13:05 Dose: 25 mg Levothyroxine Sodium (Levothyroxine Sodium 88 Mcg Tablet) 88 mcg PO DAILY@0600 [facility] Last Admin: 03/05/25 07:02 Dose: 88 mcg Magnesium Hydroxide (Milk Of Magnesia 30 Ml Oral.Susp) 30 ml PO DAILY PRN PRN Reason: Constipation Multivitamins/Vitamin C (Multivitamin Tablet) 1 tab PO DAILY [facility] Last Admin: 03/04/25 10:00 Dose: Not Given Nicotine (Nicotine 21 Mg Patch.Td24) 21 mg TRANSDERMA DAILY PRN PRN Reason: nicotine craving Nicotine Polacrilex (Nicotine Polacrilex Lozenge 2 Mg Lozenge) 2 mg BUCCAL Q2H PRN PRN Reason: Nicotine Cravings Last Admin: 03/04/25 19:37 Dose: 2 mg Olanzapine (Olanzapine 5 Mg Tablet) 5 mg PO BEDTIME [facility] Last Admin: 03/04/25 21:59 Dose: 5 mg Ondansetron HCl (Ondansetron Odt 4 Mg Tab.Rapdis) 4 mg TRANSLINGU Q6H PRN PRN Reason: Nausea and Vomiting Thiamine HCl (Thiamine Hcl 100 Mg Tablet) 100 mg PO DAILY [facility] Last Admin: 03/04/25 10:00 Dose: Not Given Trazodone HCl (Trazodone Hcl 100 Mg Tablet) 100 mg PO BEDTIME MRX1 [facility] Last Admin: 03/04/25 21:59 Dose: 100 mg Allergies Allergies Allergy/AdvReac Type Severity Reaction Status Date / Time No Known Allergies Allergy Verified 02/27/25 17:38 Assessment & Plan Assessment & Plan (1) Major depression: Status: Acute Code(s): F32.9 - Major depressive disorder, single episode, unspecified (2) Alcohol dependence: Status: Acute Code(s): F10.20 - Alcohol dependence, uncomplicated (3) PTSD (post-traumatic stress disorder): Status: Acute Code(s): F43.10 - Post-traumatic stress disorder, unspecified (4) Cognitive deficit as late effect of cerebrovascular accident (CVA): Status: Acute Code(s): I69.319 - Unspecified symptoms and signs involving cognitive functions following cerebral infarction Plan 59 yo female who is transferred from [facility] after she presented there with SI and agitation. Per the chart and referral paperwork patient had originally presented to the [facility] (substance rehab community treatment center) to look for a place to go for treatment for her alcohol use. She was intoxicated and voicing SI and was agitated and was sent to the ED at [facility]. She initially presented to [facility] 02/19/2025 and was at [facility] until 02/27/25 when she transferred to [facility]. Patient has significant cognitive and memory impairment. Likely combination of alcohol use disorder, substance use and reported cerebrovascular disease. PLAN: - Admit to inpatient psychiatry - CV - Collateral information from family and providers. - Milieu treatment and group therapy. - Medications: Continue current medications from [facility]. - Social work evaluation. - Disposition planning. 03/01: continue current management and treatment plan. Await results of labs (B12, folate, TSH, CBC) 03/02: Lower Olanzapine to 5mg HS. 03/04: Continue to attempt alliance and provide treatment. 03/05: Continue to attempt alliance and provide treatment. Reason for continued inpatient stay Substantial Risk for: harm to self, inability to function, rapid decompensation and med/psych decompensation Time Spent With Patient Time: Total time managing care of this patient today ____ minutes.
[2025-03-05] MEDS: Nicotine Polacrilex Lozenge 2 MG LOZENGE BUCCAL ×2 (14:06→16:27)
--- NOTE | 2025-03-05 14:26 | PC.NURSE ---
This pt was missed and not put on my assignement in the morning. This health science writer contacted provider to inquire about giving all morning medications now. Provider stated yes .
[2025-03-05 20:00] VITALS: BP 114/78; PULSE 64; RESP 16; TEMP 36.8; O2SAT 98
[2025-03-05] MEDS: Benzocaine 20 % Oral Gel 9 GM TUBE 1 APPL MUCOUS MEM (22:34)
--- NOTE | 2025-03-06 10:34 | P.PNPSI_ITS ---
Subjective Subjective Date of Service: 03/06/25 Reason For Visit: Depression Unspecified Depression Subjective Notes: Section 7 Healthcare Proxy: No Guardianship: No Medical Problems Affecting Mental Status: No Interim History: Section 7 filed. Met with pt and Khloe Zendejas LCSW. Pt awake, in bed, blankets over her head. Minimal responses. One word, non commited to begin treatment. Again discussed offers to help and assist pt by friend, Brisa, who spoke with team on 03/05. Pt was asked if she would like to see the hospitalist, STACY, have diagnostics so we can help with her GI sx Brisa described-she did not respond. (Hx of varices). She has refused diagnostics thus far. Team reports she is out of her room at meal time and is otherwise isolative. No response to options offered today, however, pt did not ask to leave as her three day notice . Medication Compliance: Intermittent Side effects from medications: No Attending Groups: No Review of Systems ??? Medical Review of Systems: unchanged Review of Systems Review of Systems Yes Unobtainable due to mental status Mental Status Exam Mental Status Exam Patient Appearance: Fatigued Patient Orientation: Person Level of Consciousness: Awake Patient Behavior: Guarded, Suspicious, Avoidant, Isolative and Poor Eye Contact Mood Description: Depressed Affect Description: Constricted Patient Cognition Impaired: Yes Ability to Follow Directions: Fair Speech Pattern: Impoverished Memory Description: Episodic Impaired Hallucinations: None (??) Delusions: Not Present (??) Thought Process: Illogical, Distracted, Rumination, Evasive and Confusion Thought Content: positive for [place], positive for Circumstantial, positive for Perseveration and positive for Suicidal Ideation Depressive Symptoms: Loss of Energy Judgement: Poor Diagnostics Vital Signs (24Hr): Vital Signs - 24 hr 03/05/25 20:00 Temperature 98.2 F Pulse Rate 64 Respiratory Rate 16 Blood Pressure 114/78 Pulse Oximetry 98 Oxygen Delivery Method Room Air BMI result Body Mass Index 34.9 Labs 02/28/25 08:36 Medications Medications Current Medications Acetaminophen (Acetaminophen 325 Mg Tablet) 650 mg PO Q6H PRN PRN Reason: Headache/Pain, Scale 1-10 Last Admin: 03/05/25 22:33 Dose: 650 mg Al Hydroxide/Mg Hydroxide (Magnesium Hydrox/Alum Hydrox 30 Ml Oral.Susp) 30 ml PO Q6H PRN PRN Reason: Heartburn/Nausea Atorvastatin Calcium (Atorvastatin Calcium 20 Mg Tablet) 20 mg PO DAILY [facility] Last Admin: 03/06/25 09:04 Dose: Not Given Benzocaine (Benzocaine 20 % Oral Gel 9 Gm Tube) 1 appl MUCOUS MEM QID PRN; Protocol PRN Reason: tooth ache Last Admin: 03/05/25 22:34 Dose: 1 appl Clonidine HCl (Clonidine Hcl 0.1 Mg Tablet) 0.1 mg PO TID PRN; Protocol PRN Reason: anxiety/restlessness Famotidine (Famotidine 20 Mg Tablet) 40 mg PO BEDTIME [facility] Last Admin: 03/05/25 20:14 Dose: 40 mg Fluoxetine HCl (Fluoxetine Hcl 20 Mg Capsule) 40 mg PO DAILY [facility] Last Admin: 03/06/25 09:04 Dose: Not Given Folic Acid (Folic Acid 1 Mg Tablet) 1 mg PO DAILY [facility] Last Admin: 03/06/25 09:04 Dose: Not Given Hydroxyzine HCl (Hydroxyzine Hcl 25 Mg Tablet) 25 mg PO Q6H PRN PRN Reason: mild anxiety Last Admin: 03/05/25 20:14 Dose: 25 mg Levothyroxine Sodium (Levothyroxine Sodium 88 Mcg Tablet) 88 mcg PO DAILY@0600 [facility] Last Admin: 03/06/25 06:56 Dose: 88 mcg Magnesium Hydroxide (Milk Of Magnesia 30 Ml Oral.Susp) 30 ml PO DAILY PRN PRN Reason: Constipation Multivitamins/Vitamin C (Multivitamin Tablet) 1 tab PO DAILY [facility] Last Admin: 03/06/25 09:04 Dose: Not Given Nicotine (Nicotine 21 Mg Patch.Td24) 21 mg TRANSDERMA DAILY PRN PRN Reason: nicotine craving Nicotine Polacrilex (Nicotine Polacrilex Lozenge 2 Mg Lozenge) 2 mg BUCCAL Q2H PRN PRN Reason: Nicotine Cravings Last Admin: 03/05/25 16:27 Dose: 2 mg Olanzapine (Olanzapine 5 Mg Tablet) 5 mg PO BEDTIME [facility] Last Admin: 03/05/25 20:14 Dose: 5 mg Ondansetron HCl (Ondansetron Odt 4 Mg Tab.Rapdis) 4 mg TRANSLINGU Q6H PRN PRN Reason: Nausea and Vomiting Thiamine HCl (Thiamine Hcl 100 Mg Tablet) 100 mg PO DAILY [facility] Last Admin: 03/06/25 09:04 Dose: Not Given Trazodone HCl (Trazodone Hcl 100 Mg Tablet) 100 mg PO BEDTIME MRX1 [facility] Last Admin: 03/05/25 22:32 Dose: 100 mg Allergies Allergies Allergy/AdvReac Type Severity Reaction Status Date / Time No Known Allergies Allergy Verified 02/27/25 17:38 Assessment & Plan Assessment & Plan (1) Major depression: Status: Acute Code(s): F32.9 - Major depressive disorder, single episode, unspecified (2) Alcohol dependence: Status: Acute Code(s): F10.20 - Alcohol dependence, uncomplicated (3) PTSD (post-traumatic stress disorder): Status: Acute Code(s): F43.10 - Post-traumatic stress disorder, unspecified (4) Cognitive deficit as late effect of cerebrovascular accident (CVA): Status: Acute Code(s): I69.319 - Unspecified symptoms and signs involving cognitive functions following cerebral infarction Plan 59 yo female who is transferred from [facility] after she presented there with SI and agitation. Per the chart and referral paperwork patient had originally presented to the [facility] (substance rehab community treatment center) to look for a place to go for treatment for her alcohol use. She was intoxicated and voicing SI and was agitated and was sent to the ED at [facility]. She initially presented to [facility] 02/19/2025 and was at [facility] until 02/27/25 when she transferred to [facility]. Patient has significant cognitive and memory impairment. Likely combination of alcohol use disorder, substance use and reported cerebrovascular disease. PLAN: - Admit to inpatient psychiatry - CV - Collateral information from family and providers. - Milieu treatment and group therapy. - Medications: Continue current medications from [facility]. - Social work evaluation. - Disposition planning. 03/01: continue current management and treatment plan. Await results of labs (B12, folate, TSH, CBC) 03/02: Lower Olanzapine to 5mg HS. 03/04: Continue to attempt alliance and provide treatment. 03/06: Section 7 filed. Continue to attempt alliance and provide treatment. Reason for continued inpatient stay Substantial Risk for: harm to self, inability to function, rapid decompensation and med/psych decompensation Time Spent With Patient Time: Total time managing care of this patient today ____ minutes.
[2025-03-06] MEDS: Nicotine Polacrilex Lozenge 2 MG LOZENGE BUCCAL (11:37)
[2025-03-06 20:00] VITALS: BP 105/67; PULSE 59; RESP 16; TEMP 36.8; O2SAT 98
[2025-03-07 08:00] VITALS: BP 100/51; PULSE 56; RESP 14; TEMP 36.1; O2SAT 95
--- NOTE | 2025-03-07 08:30 | HO.PSYCHPN ---
Subjective Subjective Date of Service: 03/07/25 Reason For Visit: Depression Unspecified Depression Interim History: Met With patient; discussed with team; reviewed chart Patient asks if she can be discharge. Initially she was not sure why she came to the hospital but leader writer reminded her that she expressed SI and has been drinking and patient said that her mother 5 days ago so she has been very sad. She denies any SI now and says I want to live Mental Status Exam Mental Status Exam Narrative: Pt is alert and oriented; behavior is cooperative, calm; patient is not in distress; dressed in hospital attire, disheveled; mood is described as improved and affect constricted; eye contact appropriate; Speech is normal rate, volume and prosody and not pressured; saw psychomotor retardation present; thought process is goal directed; Thought content is on discharge; forgetful; no delusional content expressed; denies any SI/HI. Denies AVH. Patients insight and judgment impaired Diagnostics Vital Signs (24Hr): Vital Signs - 24 hr 03/06/25 20:00 03/07/25 08:00 Temperature 98.2 F 96.9 F Pulse Rate 59 56 Respiratory Rate 16 14 Blood Pressure 105/67 100/51 L Pulse Oximetry 98 95 Oxygen Delivery Method Room Air Room Air BMI result Body Mass Index 34.9 Labs 02/28/25 08:36 Medications Medications Current Medications Acetaminophen (Acetaminophen 325 Mg Tablet) 650 mg PO Q6H PRN PRN Reason: Headache/Pain, Scale 1-10 Last Admin: 03/05/25 22:33 Dose: 650 mg Al Hydroxide/Mg Hydroxide (Magnesium Hydrox/Alum Hydrox 30 Ml Oral.Susp) 30 ml PO Q6H PRN PRN Reason: Heartburn/Nausea Atorvastatin Calcium (Atorvastatin Calcium 20 Mg Tablet) 20 mg PO DAILY [facility] Last Admin: 03/06/25 11:40 Dose: 20 mg Benzocaine (Benzocaine 20 % Oral Gel 9 Gm Tube) 1 appl MUCOUS MEM QID PRN; Protocol PRN Reason: tooth ache Last Admin: 03/05/25 22:34 Dose: 1 appl Clonidine HCl (Clonidine Hcl 0.1 Mg Tablet) 0.1 mg PO TID PRN; Protocol PRN Reason: anxiety/restlessness Last Admin: 03/06/25 20:27 Dose: 0.1 mg Famotidine (Famotidine 20 Mg Tablet) 40 mg PO BEDTIME [facility] Last Admin: 03/06/25 20:27 Dose: 40 mg Fluoxetine HCl (Fluoxetine Hcl 20 Mg Capsule) 40 mg PO DAILY [facility] Last Admin: 03/06/25 11:40 Dose: 40 mg Folic Acid (Folic Acid 1 Mg Tablet) 1 mg PO DAILY [facility] Last Admin: 03/06/25 11:40 Dose: 1 mg Hydroxyzine HCl (Hydroxyzine Hcl 25 Mg Tablet) 25 mg PO Q6H PRN PRN Reason: mild anxiety Last Admin: 03/05/25 20:14 Dose: 25 mg Levothyroxine Sodium (Levothyroxine Sodium 88 Mcg Tablet) 88 mcg PO DAILY@0600 [facility] Last Admin: 03/07/25 06:28 Dose: 88 mcg Magnesium Hydroxide (Milk Of Magnesia 30 Ml Oral.Susp) 30 ml PO DAILY PRN PRN Reason: Constipation Multivitamins/Vitamin C (Multivitamin Tablet) 1 tab PO DAILY [facility] Last Admin: 03/06/25 11:40 Dose: 1 tab Nicotine (Nicotine 21 Mg Patch.Td24) 21 mg TRANSDERMA DAILY PRN PRN Reason: nicotine craving Nicotine Polacrilex (Nicotine Polacrilex Lozenge 2 Mg Lozenge) 2 mg BUCCAL Q2H PRN PRN Reason: Nicotine Cravings Last Admin: 03/06/25 11:37 Dose: 2 mg Olanzapine (Olanzapine 5 Mg Tablet) 5 mg PO BEDTIME [facility] Last Admin: 03/06/25 20:26 Dose: 5 mg Ondansetron HCl (Ondansetron Odt 4 Mg Tab.Rapdis) 4 mg TRANSLINGU Q6H PRN PRN Reason: Nausea and Vomiting Thiamine HCl (Thiamine Hcl 100 Mg Tablet) 100 mg PO DAILY [facility] Last Admin: 03/06/25 11:40 Dose: 100 mg Trazodone HCl (Trazodone Hcl 100 Mg Tablet) 100 mg PO BEDTIME MRX1 [facility] Last Admin: 03/06/25 21:53 Dose: 100 mg Allergies Allergies Allergy/AdvReac Type Severity Reaction Status Date / Time No Known Allergies Allergy Verified 02/27/25 17:38 Assessment & Plan Assessment & Plan (1) Major depression: Status: Acute Code(s): F32.9 - Major depressive disorder, single episode, unspecified (2) Alcohol dependence: Status: Acute Code(s): F10.20 - Alcohol dependence, uncomplicated (3) PTSD (post-traumatic stress disorder): Status: Acute Code(s): F43.10 - Post-traumatic stress disorder, unspecified (4) Cognitive deficit as late effect of cerebrovascular accident (CVA): Status: Acute Code(s): I69.319 - Unspecified symptoms and signs involving cognitive functions following cerebral infarction Plan 59 yo female who is transferred from [facility] after she presented there with SI and agitation. Per the chart and referral paperwork patient had originally presented to the [facility] (substance rehab community treatment index) to look for a place to go for treatment for her alcohol use. She was intoxicated and voicing SI and was agitated and was sent to the ED at [facility]. She initially presented to [facility] 02/19/2025 and was at [facility] until 02/27/25 when she transferred to [facility]. Patient has significant cognitive and memory impairment. Likely combination of alcohol use disorder, substance use and reported cerebrovascular disease. PLAN: - Admit to inpatient psychiatry - CV - Collateral information from family and providers. - Milieu treatment and group therapy. - Medications: Continue current medications from [facility]. - Social work evaluation. - Disposition planning. 03/01: continue current management and treatment plan. Await results of labs (B12, folate, TSH, CBC) 03/02: Lower Olanzapine to 5mg HS. 03/04: Continue to attempt alliance and provide treatment. 03/07 Patient asks if she can be discharge. Initially she was not sure why she came to the hospital but leader writer reminded her that she expressed SI and has been drinking and patient said that her mother 5 days ago so she has been very sad. She denies any SI now and says I want to live -Continue current treatment plan for now Patient educated on: diagnosis, medication risk/benefits and substance abuse Informed Consent: understands, does not understand and further education needed Reason for continued inpatient stay Substantial Risk for: rapid decompensation Time Spent With Patient Time: Total time managing care of this patient today ____ minutes.
[2025-03-07] MEDS: Nicotine Polacrilex Lozenge 2 MG LOZENGE BUCCAL (12:14)
[2025-03-07 20:00] VITALS: BP 107/61; PULSE 72; RESP 16; TEMP 36.5; O2SAT 96
[2025-03-07] MEDS: Benzocaine 20 % Oral Gel 9 GM TUBE 1 APPL MUCOUS MEM (20:26)
[2025-03-08 08:00] VITALS: BP 104/54; PULSE 54; RESP 14; TEMP 36.6; O2SAT 98
--- NOTE | 2025-03-08 09:51 | P.PNPSI_ITS ---
Subjective Subjective Date of Service: 03/08/25 Reason For Visit: Depression Unspecified Depression Interim History: Met with patient; discussed with team Patient shower today however went back to bed and put the covers over her head and would not remove them on approach. Patient said she is all right but said she did not want to talk Mental Status Exam Mental Status Exam Narrative: Pt is alert and oriented; behavior is guarded, in bed with blanket over her head; patient is not in distress; mood is described as alright and affect constricted; eye contact avoidant; Speech is normal rate, volume and prosody and not pressured; some psychomotor retardation present; thought process is goal directed; Thought content is on discharge; forgetful; no delusional content expressed; denies any SI/HI. Denies AVH. Patients insight and judgment impaired Diagnostics Vital Signs (24Hr): Vital Signs - 24 hr 03/07/25 20:00 03/08/25 08:00 Temperature 97.7 F 97.9 F Pulse Rate 72 54 Respiratory Rate 16 14 Blood Pressure 107/61 104/54 L Pulse Oximetry 96 98 Oxygen Delivery Method Room Air Room Air BMI result Body Mass Index 34.9 Labs 02/28/25 08:36 Medications Medications Current Medications Acetaminophen (Acetaminophen 325 Mg Tablet) 650 mg PO Q6H PRN PRN Reason: Headache/Pain, Scale 1-10 Last Admin: 03/05/25 22:33 Dose: 650 mg Al Hydroxide/Mg Hydroxide (Magnesium Hydrox/Alum Hydrox 30 Ml Oral.Susp) 30 ml PO Q6H PRN PRN Reason: Heartburn/Nausea Atorvastatin Calcium (Atorvastatin Calcium 20 Mg Tablet) 20 mg PO DAILY [facility] Last Admin: 03/07/25 11:39 Dose: 20 mg Benzocaine (Benzocaine 20 % Oral Gel 9 Gm Tube) 1 appl MUCOUS MEM QID PRN; Protocol PRN Reason: tooth ache Last Admin: 03/07/25 20:26 Dose: 1 appl Clonidine HCl (Clonidine Hcl 0.1 Mg Tablet) 0.1 mg PO TID PRN; Protocol PRN Reason: anxiety/restlessness Last Admin: 03/06/25 20:27 Dose: 0.1 mg Famotidine (Famotidine 20 Mg Tablet) 40 mg PO BEDTIME [facility] Last Admin: 03/07/25 20:24 Dose: 40 mg Fluoxetine HCl (Fluoxetine Hcl 20 Mg Capsule) 40 mg PO DAILY [facility] Last Admin: 03/07/25 11:39 Dose: 40 mg Folic Acid (Folic Acid 1 Mg Tablet) 1 mg PO DAILY [facility] Last Admin: 03/07/25 11:39 Dose: 1 mg Hydroxyzine HCl (Hydroxyzine Hcl 25 Mg Tablet) 25 mg PO Q6H PRN PRN Reason: mild anxiety Last Admin: 03/05/25 20:14 Dose: 25 mg Levothyroxine Sodium (Levothyroxine Sodium 88 Mcg Tablet) 88 mcg PO DAILY@0600 [facility] Last Admin: 03/08/25 06:24 Dose: 88 mcg Magnesium Hydroxide (Milk Of Magnesia 30 Ml Oral.Susp) 30 ml PO DAILY PRN PRN Reason: Constipation Multivitamins/Vitamin C (Multivitamin Tablet) 1 tab PO DAILY [facility] Last Admin: 03/07/25 11:39 Dose: 1 tab Nicotine (Nicotine 21 Mg Patch.Td24) 21 mg TRANSDERMA DAILY PRN PRN Reason: nicotine craving Nicotine Polacrilex (Nicotine Polacrilex Lozenge 2 Mg Lozenge) 2 mg BUCCAL Q2H PRN PRN Reason: Nicotine Cravings Last Admin: 03/07/25 12:14 Dose: 2 mg Olanzapine (Olanzapine 5 Mg Tablet) 5 mg PO BEDTIME [facility] Last Admin: 03/07/25 20:24 Dose: 5 mg Ondansetron HCl (Ondansetron Odt 4 Mg Tab.Rapdis) 4 mg TRANSLINGU Q6H PRN PRN Reason: Nausea and Vomiting Thiamine HCl (Thiamine Hcl 100 Mg Tablet) 100 mg PO DAILY [facility] Last Admin: 03/07/25 11:39 Dose: 100 mg Trazodone HCl (Trazodone Hcl 100 Mg Tablet) 100 mg PO BEDTIME MRX1 [facility] Last Admin: 03/07/25 22:03 Dose: 100 mg Allergies Allergies Allergy/AdvReac Type Severity Reaction Status Date / Time No Known Allergies Allergy Verified 02/27/25 17:38 Assessment & Plan Assessment & Plan (1) Major depression: Status: Acute Code(s): F32.9 - Major depressive disorder, single episode, unspecified (2) Alcohol dependence: Status: Acute Code(s): F10.20 - Alcohol dependence, uncomplicated (3) PTSD (post-traumatic stress disorder): Status: Acute Code(s): F43.10 - Post-traumatic stress disorder, unspecified (4) Cognitive deficit as late effect of cerebrovascular accident (CVA): Status: Acute Code(s): I69.319 - Unspecified symptoms and signs involving cognitive functions following cerebral infarction Plan 59 yo female who is transferred from [facility] after she presented there with SI and agitation. Per the chart and referral paperwork patient had originally presented to the [facility] (substance rehab community treatment deeth) to look for a place to go for treatment for her alcohol use. She was intoxicated and voicing SI and was agitated and was sent to the ED at [facility] She initially presented to [facility] 02/19/[address] [facility] until 02/27/25 when she transferred to [facility]. Patient has significant cognitive and memory impairment. Likely combination of alcohol use disorder, substance use and reported cerebrovascular disease. Hospital course: 03/01: continue current management and treatment plan. Await results of labs (B12, folate, TSH, CBC) 03/02: Lower Olanzapine to 5mg HS. 03/04: Continue to attempt alliance and provide treatment. 03/07 Patient asks if she can be discharge. Initially she was not sure why she came to the hospital but telegraphic typewriter repairer reminded her that she expressed SI and has been drinking and patient said that her mother 5 days ago so she has been very sad. She denies any SI now and says I want to live -Continue current treatment plan for now 03/08 Patient shower today however went back to bed and put the covers over her head and would not remove them on approach. Patient said she is all right but said she did not want to talk PLAN: - Admit to inpatient psychiatry - CV - Collateral information from family and providers. - Milieu treatment and group therapy. - Medications: Continue current medications from [facility]. - Social work evaluation. - Disposition planning. Patient educated on: diagnosis Informed Consent: further education needed Reason for continued inpatient stay Substantial Risk for: rapid decompensation Time Spent With Patient Time: Total time managing care of this patient today ____ minutes.
[2025-03-08] MEDS: Nicotine Polacrilex Lozenge 2 MG LOZENGE BUCCAL (16:00)
[2025-03-08 20:00] VITALS: BP 95/59; PULSE 59; RESP 15; TEMP 36.9; O2SAT 96
[2025-03-09 08:02] VITALS: BP 105/58; PULSE 59; RESP 16; TEMP 36.3; O2SAT 92
--- NOTE | 2025-03-09 08:39 | PC.NURSE ---
Met with Anitha to discuss her smoking status. She states she does not want to stop smoking. Tuxebo offered and patient declined.
--- NOTE | 2025-03-09 09:38 | HO.PSYCHPN ---
Subjective Subjective Date of Service: 03/09/25 Reason For Visit: Depression Unspecified Depression Subjective Notes: Section 7 Healthcare Proxy: No Guardianship: No Medical Problems Affecting Mental Status: No Interim History: Up for meals, continues to refuse to talk with team. Did participate in MOCA -mild cognitive impairment. Court 03/13. We are attempting to meet with pt to discuss care planning. She remains awake, alert, head covered in a blanket and not engaging. Medication Compliance: Yes Side effects from medications: No Attending Groups: No Review of Systems Acute medical concerns: No Medical Review of Systems: unchanged Review of Systems Review of Systems will not participate Mental Status Exam Mental Status Exam Patient Appearance: Fatigued Patient Orientation: Person Level of Consciousness: Awake Patient Behavior: Guarded, Suspicious, Avoidant, Isolative and Poor Eye Contact Mood Description: Depressed Affect Description: Constricted Patient Cognition Impaired: Yes Ability to Follow Directions: Fair Speech Pattern: Impoverished Memory Description: Episodic Impaired Hallucinations: None (??) Delusions: Not Present (??) Thought Process: Illogical, Distracted, Rumination, Evasive and Confusion Thought Content: positive for [place], positive for Circumstantial, positive for Perseveration and positive for Suicidal Ideation Depressive Symptoms: Loss of Energy Judgement: Poor Diagnostics Vital Signs (24Hr): Vital Signs - 24 hr 03/08/25 20:00 03/09/25 08:02 Temperature 98.5 F 97.4 F Pulse Rate 59 59 Respiratory Rate 15 16 Blood Pressure 95/59 L 105/58 L Pulse Oximetry 96 92 Oxygen Delivery Method Room Air BMI result Body Mass Index 34.9 Labs 02/28/25 08:36 Medications Medications Current Medications Acetaminophen (Acetaminophen 325 Mg Tablet) 650 mg PO Q6H PRN PRN Reason: Headache/Pain, Scale 1-10 Last Admin: 03/05/25 22:33 Dose: 650 mg Al Hydroxide/Mg Hydroxide (Magnesium Hydrox/Alum Hydrox 30 Ml Oral.Susp) 30 ml PO Q6H PRN PRN Reason: Heartburn/Nausea Atorvastatin Calcium (Atorvastatin Calcium 20 Mg Tablet) 20 mg PO DAILY [facility] Last Admin: 03/08/25 10:58 Dose: 20 mg Benzocaine (Benzocaine 20 % Oral Gel 9 Gm Tube) 1 appl MUCOUS MEM QID PRN; Protocol PRN Reason: tooth ache Last Admin: 03/07/25 20:26 Dose: 1 appl Clonidine HCl (Clonidine Hcl 0.1 Mg Tablet) 0.1 mg PO TID PRN; Protocol PRN Reason: anxiety/restlessness Last Admin: 03/06/25 20:27 Dose: 0.1 mg Famotidine (Famotidine 20 Mg Tablet) 40 mg PO BEDTIME [facility] Last Admin: 03/08/25 20:31 Dose: 40 mg Fluoxetine HCl (Fluoxetine Hcl 20 Mg Capsule) 40 mg PO DAILY [facility] Last Admin: 03/08/25 10:57 Dose: 40 mg Folic Acid (Folic Acid 1 Mg Tablet) 1 mg PO DAILY [facility] Last Admin: 03/08/25 10:57 Dose: 1 mg Hydroxyzine HCl (Hydroxyzine Hcl 25 Mg Tablet) 25 mg PO Q6H PRN PRN Reason: mild anxiety Last Admin: 03/08/25 22:39 Dose: 25 mg Levothyroxine Sodium (Levothyroxine Sodium 88 Mcg Tablet) 88 mcg PO DAILY@0600 [facility] Last Admin: 03/09/25 06:36 Dose: Not Given Magnesium Hydroxide (Milk Of Magnesia 30 Ml Oral.Susp) 30 ml PO DAILY PRN PRN Reason: Constipation Multivitamins/Vitamin C (Multivitamin Tablet) 1 tab PO DAILY [facility] Last Admin: 03/08/25 10:57 Dose: 1 tab Nicotine (Nicotine 21 Mg Patch.Td24) 21 mg TRANSDERMA DAILY PRN PRN Reason: nicotine craving Nicotine Polacrilex (Nicotine Polacrilex Lozenge 2 Mg Lozenge) 2 mg BUCCAL Q2H PRN PRN Reason: Nicotine Cravings Last Admin: 03/08/25 16:00 Dose: 2 mg Olanzapine (Olanzapine 5 Mg Tablet) 5 mg PO BEDTIME [facility] Last Admin: 03/08/25 20:31 Dose: 5 mg Ondansetron HCl (Ondansetron Odt 4 Mg Tab.Rapdis) 4 mg TRANSLINGU Q6H PRN PRN Reason: Nausea and Vomiting Thiamine HCl (Thiamine Hcl 100 Mg Tablet) 100 mg PO DAILY [facility] Last Admin: 03/08/25 10:57 Dose: 100 mg Trazodone HCl (Trazodone Hcl 100 Mg Tablet) 100 mg PO BEDTIME MRX1 [facility] Last Admin: 03/08/25 22:39 Dose: 100 mg Allergies Allergies Allergy/AdvReac Type Severity Reaction Status Date / Time No Known Allergies Allergy Verified 02/27/25 17:38 Assessment & Plan Assessment & Plan (1) Major depression: Status: Acute Code(s): F32.9 - Major depressive disorder, single episode, unspecified (2) Alcohol dependence: Status: Acute Code(s): F10.20 - Alcohol dependence, uncomplicated (3) PTSD (post-traumatic stress disorder): Status: Acute Code(s): F43.10 - Post-traumatic stress disorder, unspecified (4) Cognitive deficit as late effect of cerebrovascular accident (CVA): Status: Acute Code(s): I69.319 - Unspecified symptoms and signs involving cognitive functions following cerebral infarction Plan 59 yo female who is transferred from [facility] after she presented there with SI and agitation. Per the chart and referral paperwork patient had originally presented to the [facility] (substance rehab community treatment center) to look for a place to go for treatment for her alcohol use. She was intoxicated and voicing SI and was agitated and was sent to the ED at [facility]. She initially presented to [facility] 02/19/[address] [facility] until 02/27/25 when she transferred to [facility]. Patient has significant cognitive and memory impairment. Likely combination of alcohol use disorder, substance use and reported cerebrovascular disease. Hospital course: 03/01: continue current management and treatment plan. Await results of labs (B12, folate, TSH, CBC) 03/02: Lower Olanzapine to 5mg HS. 03/04: Continue to attempt alliance and provide treatment. 03/07 Patient asks if she can be discharge. Initially she was not sure why she came to the hospital but underwriter mortgage loan reminded her that she expressed SI and has been drinking and patient said that her mother 5 days ago so she has been very sad. She denies any SI now and says I want to live -Continue current treatment plan for now 03/08 Patient shower today however went back to bed and put the covers over her head and would not remove them on approach. Patient said she is all right but said she did not want to talk 03/09 Continue to attempt alliance PLAN: - Admit to inpatient psychiatry - CV - Collateral information from family and providers. - Milieu treatment and group therapy. - Medications: Continue current medications from [facility]. - Social work evaluation. - Disposition planning. Reason for continued inpatient stay Substantial Risk for: rapid decompensation and med/psych decompensation Time Spent With Patient Time: Total time managing care of this patient today ____ minutes.
[2025-03-09 20:00] VITALS: BP 106/60; PULSE 77; RESP 18; TEMP 37; O2SAT 99
[2025-03-10 08:45] VITALS: BP 112/62; PULSE 68; RESP 16; TEMP 37.2; O2SAT 99
--- NOTE | 2025-03-10 09:59 | HO.PSYCHPN ---
Subjective Subjective Date of Service: 03/10/25 Reason For Visit: Depression Unspecified Depression Subjective Notes: Section 7 Healthcare Proxy: No Guardianship: No Medical Problems Affecting Mental Status: No Interim History: Pt agreed to talk with team today. She reports she would like to live with her friend Brisa and that her friend Jerome will come to [place] to help them look for an apartment. She would like her sister Radha, who has Down's Syndrome to live with her. She reports feeling she has been in hospitals, rehabs for too long . She reports she feels she cannot grieve in the hospital as she will be judged. She is aware she cannot drink-she reports Brisa has invited pt to her home to stay. She denies SI,HI,AH,VH. Contact with friend Brisa who reports she did offer her home as a temporary housing option for pt. Brisa asks that we contact pt's step father, schedule VNA and arrange transport-she worries pt will stop and drink on the way to her home, however, Brisa's home is directly across from [facility] so resources are available if pt is in need. Medication Compliance: Yes Side effects from medications: No Attending Groups: No Review of Systems Acute medical concerns: No Medical Review of Systems: unchanged Review of Systems Review of Systems denies Mental Status Exam Mental Status Exam Patient Appearance: Appropriate Patient Orientation: Person, Place, Time and Situation Level of Consciousness: Alert Patient Behavior: Talkative and Good Eye Contact Mood Description: Depressed and Sad Affect Description: Flat Patient Cognition Impaired: No Ability to Follow Directions: Good Speech Pattern: Spontaneous Speech Memory Description: Episodic Impaired Hallucinations: None (??) Delusions: Not Present (??) Thought Process: Distracted and Rumination Thought Content: positive for [place], positive for Circumstantial and positive for Suicidal Ideation (denies) Depressive Symptoms: Loss of Energy Judgement: Fair Diagnostics Vital Signs (24Hr): Vital Signs - 24 hr 03/09/25 20:00 03/10/25 08:45 Temperature 98.6 F 98.9 F Pulse Rate 77 68 Respiratory Rate 18 16 Blood Pressure 106/60 112/62 Pulse Oximetry 99 99 Oxygen Delivery Method Room Air Room Air BMI result Body Mass Index 34.9 Labs 02/28/25 08:36 Medications Medications Current Medications Acetaminophen (Acetaminophen 325 Mg Tablet) 650 mg PO Q6H PRN PRN Reason: Headache/Pain, Scale 1-10 Last Admin: 03/05/25 22:33 Dose: 650 mg Al Hydroxide/Mg Hydroxide (Magnesium Hydrox/Alum Hydrox 30 Ml Oral.Susp) 30 ml PO Q6H PRN PRN Reason: Heartburn/Nausea Atorvastatin Calcium (Atorvastatin Calcium 20 Mg Tablet) 20 mg PO DAILY [facility] Last Admin: 03/10/25 08:49 Dose: 20 mg Benzocaine (Benzocaine 20 % Oral Gel 9 Gm Tube) 1 appl MUCOUS MEM QID PRN; Protocol PRN Reason: tooth ache Last Admin: 03/07/25 20:26 Dose: 1 appl Clonidine HCl (Clonidine Hcl 0.1 Mg Tablet) 0.1 mg PO TID PRN; Protocol PRN Reason: anxiety/restlessness Last Admin: 03/06/25 20:27 Dose: 0.1 mg Famotidine (Famotidine 20 Mg Tablet) 40 mg PO BEDTIME [facility] Last Admin: 03/09/25 19:58 Dose: 40 mg Fluoxetine HCl (Fluoxetine Hcl 20 Mg Capsule) 40 mg PO DAILY [facility] Last Admin: 03/10/25 08:49 Dose: 40 mg Folic Acid (Folic Acid 1 Mg Tablet) 1 mg PO DAILY [facility] Last Admin: 03/10/25 08:49 Dose: 1 mg Hydroxyzine HCl (Hydroxyzine Hcl 25 Mg Tablet) 25 mg PO Q6H PRN PRN Reason: mild anxiety Last Admin: 03/08/25 22:39 Dose: 25 mg Levothyroxine Sodium (Levothyroxine Sodium 88 Mcg Tablet) 88 mcg PO DAILY@0600 [facility] Last Admin: 03/10/25 06:10 Dose: 88 mcg Magnesium Hydroxide (Milk Of Magnesia 30 Ml Oral.Susp) 30 ml PO DAILY PRN PRN Reason: Constipation Multivitamins/Vitamin C (Multivitamin Tablet) 1 tab PO DAILY [facility] Last Admin: 03/10/25 08:49 Dose: 1 tab Nicotine (Nicotine 21 Mg Patch.Td24) 21 mg TRANSDERMA DAILY PRN PRN Reason: nicotine craving Nicotine Polacrilex (Nicotine Polacrilex Lozenge 2 Mg Lozenge) 2 mg BUCCAL Q2H PRN PRN Reason: Nicotine Cravings Last Admin: 03/08/25 16:00 Dose: 2 mg Olanzapine (Olanzapine 5 Mg Tablet) 5 mg PO BEDTIME [facility] Last Admin: 03/09/25 19:57 Dose: 5 mg Ondansetron HCl (Ondansetron Odt 4 Mg Tab.Rapdis) 4 mg TRANSLINGU Q6H PRN PRN Reason: Nausea and Vomiting Thiamine HCl (Thiamine Hcl 100 Mg Tablet) 100 mg PO DAILY [facility] Last Admin: 03/10/25 08:49 Dose: 100 mg Trazodone HCl (Trazodone Hcl 100 Mg Tablet) 100 mg PO BEDTIME MRX1 [facility] Last Admin: 03/09/25 20:07 Dose: 100 mg Allergies Allergies Allergy/AdvReac Type Severity Reaction Status Date / Time No Known Allergies Allergy Verified 02/27/25 17:38 Assessment & Plan Assessment & Plan (1) Major depression: Status: Acute Code(s): F32.9 - Major depressive disorder, single episode, unspecified (2) Alcohol dependence: Status: Acute Code(s): F10.20 - Alcohol dependence, uncomplicated (3) PTSD (post-traumatic stress disorder): Status: Acute Code(s): F43.10 - Post-traumatic stress disorder, unspecified (4) Cognitive deficit as late effect of cerebrovascular accident (CVA): Status: Acute Code(s): I69.319 - Unspecified symptoms and signs involving cognitive functions following cerebral infarction Plan 59 yo female who is transferred from [facility] after she presented there with SI and agitation. Per the chart and referral paperwork patient had originally presented to the [facility] (substance rehab community treatment center) to look for a place to go for treatment for her alcohol use. She was intoxicated and voicing SI and was agitated and was sent to the ED at [facility]. She initially presented to [facility] 02/19/2025 and was at [facility] until 02/27/25 when she [place] [facility] Patient has significant cognitive and memory impairment. Likely combination of alcohol use disorder, substance use and reported cerebrovascular disease. Hospital course: 03/01: continue current management and treatment plan. Await results of labs (B12, folate, TSH, CBC) 03/02: Lower Olanzapine to 5mg HS. 03/04: Continue to attempt alliance and provide treatment. 03/07 Patient asks if she can be discharge. Initially she was not sure why she came to the hospital but rewriter reminded her that she expressed SI and has been drinking and patient said that her mother 5 days ago so she has been very sad. She denies any SI now and says I want to live -Continue current treatment plan for now 03/08 Patient shower today however went back to bed and put the covers over her head and would not remove them on approach. Patient said she is all right but said she did not want to talk 03/10 Continue tx. Work with pt/family to meet pt goals for discharge PLAN: - Admit to inpatient psychiatry - CV - Collateral information from family and providers. - Milieu treatment and group therapy. - Medications: Continue current medications from [facility]. - Social work evaluation. - Disposition planning. Reason for continued inpatient stay Substantial Risk for: rapid decompensation and med/psych decompensation Time Spent With Patient Time: Total time managing care of this patient today ____ minutes.
[2025-03-10] MEDS: Benzocaine 20 % Oral Gel 9 GM TUBE 1 APPL MUCOUS MEM (15:38)
[2025-03-10 15:59] VITALS: BP 104/77
[2025-03-10 20:00] VITALS: BP 110/67; PULSE 58; RESP 16; TEMP 37; O2SAT 98
[2025-03-11 08:12] VITALS: BP 110/62; PULSE 59; O2SAT 96
--- NOTE | 2025-03-11 11:31 | HO.PSYCHPN ---
Subjective Subjective Date of Service: 03/11/25 Reason For Visit: Depression Unspecified Depression Subjective Notes: Section 7 Healthcare Proxy: No Guardianship: No Medical Problems Affecting Mental Status: No Interim History: Pt reports feeling prepared to discharge. She plans to live with her friend Brisa temporarily while she clarifies her Section 8 status. I want to leave the hospital so I can properly grieve the loss of my mother. Denies SI,HI,AH,VH. Engaged with team and peers. Call to pt's friend Brisa- she reports [facility] is the best pharmacy for pt to use and that when pt arrives at her home she should ring the door olivares for [phone] and wait for Brisa to come to the front door to let her in. These directions will be written for pt. Medication Compliance: Yes Side effects from medications: No Attending Groups: No Review of Systems Acute medical concerns: No Medical Review of Systems: unchanged Review of Systems Review of Systems Denies Mental Status Exam Mental Status Exam Patient Appearance: Appropriate Patient Orientation: Person, Place, Time and Situation Level of Consciousness: Alert Patient Behavior: Talkative and Good Eye Contact Mood Description: Depressed and Sad Affect Description: Flat Patient Cognition Impaired: No Ability to Follow Directions: Good Speech Pattern: Spontaneous Speech Memory Description: Episodic Impaired Hallucinations: None Delusions: Not Present Thought Process: Distracted and Rumination Thought Content: positive for [place], positive for Circumstantial and positive for Suicidal Ideation (denies) Depressive Symptoms: Loss of Energy Judgement: Fair Diagnostics Vital Signs (24Hr): Vital Signs - 24 hr 03/10/25 15:59 03/10/25 20:00 03/11/25 08:12 Temperature 98.6 F Pulse Rate 58 59 Respiratory Rate 16 Blood Pressure 104/77 110/67 110/62 Pulse Oximetry 98 96 Oxygen Delivery Method Room Air Room Air BMI result Body Mass Index 34.9 Labs 02/28/25 08:36 Medications Medications Current Medications Acetaminophen (Acetaminophen 325 Mg Tablet) 650 mg PO Q6H PRN PRN Reason: Headache/Pain, Scale 1-10 Last Admin: 03/10/25 15:37 Dose: 650 mg Al Hydroxide/Mg Hydroxide (Magnesium Hydrox/Alum Hydrox 30 Ml Oral.Susp) 30 ml PO Q6H PRN PRN Reason: Heartburn/Nausea Atorvastatin Calcium (Atorvastatin Calcium 20 Mg Tablet) 20 mg PO DAILY [facility] Last Admin: 03/11/25 08:56 Dose: 20 mg Benzocaine (Benzocaine 20 % Oral Gel 9 Gm Tube) 1 appl MUCOUS MEM QID PRN; Protocol PRN Reason: tooth ache Last Admin: 03/10/25 15:38 Dose: 1 appl Clonidine HCl (Clonidine Hcl 0.1 Mg Tablet) 0.1 mg PO TID PRN; Protocol PRN Reason: anxiety/restlessness Last Admin: 03/10/25 15:59 Dose: 0.1 mg Famotidine (Famotidine 20 Mg Tablet) 40 mg PO BEDTIME [facility] Last Admin: 03/10/25 20:42 Dose: 40 mg Fluoxetine HCl (Fluoxetine Hcl 20 Mg Capsule) 40 mg PO DAILY [facility] Last Admin: 03/11/25 08:56 Dose: 40 mg Folic Acid (Folic Acid 1 Mg Tablet) 1 mg PO DAILY [facility] Last Admin: 03/11/25 08:57 Dose: 1 mg Hydroxyzine HCl (Hydroxyzine Hcl 25 Mg Tablet) 25 mg PO Q6H PRN PRN Reason: mild anxiety Last Admin: 03/10/25 15:23 Dose: 25 mg Levothyroxine Sodium (Levothyroxine Sodium 88 Mcg Tablet) 88 mcg PO DAILY@0600 [facility] Last Admin: 03/11/25 06:45 Dose: 88 mcg Magnesium Hydroxide (Milk Of Magnesia 30 Ml Oral.Susp) 30 ml PO DAILY PRN PRN Reason: Constipation Multivitamins/Vitamin C (Multivitamin Tablet) 1 tab PO DAILY [facility] Last Admin: 03/11/25 08:57 Dose: 1 tab Nicotine (Nicotine 21 Mg Patch.Td24) 21 mg TRANSDERMA DAILY PRN PRN Reason: nicotine craving Nicotine Polacrilex (Nicotine Polacrilex Lozenge 2 Mg Lozenge) 2 mg BUCCAL Q2H PRN PRN Reason: Nicotine Cravings Last Admin: 03/08/25 16:00 Dose: 2 mg Olanzapine (Olanzapine 5 Mg Tablet) 5 mg PO BEDTIME [facility] Last Admin: 03/10/25 20:43 Dose: 5 mg Ondansetron HCl (Ondansetron Odt 4 Mg Tab.Rapdis) 4 mg TRANSLINGU Q6H PRN PRN Reason: Nausea and Vomiting Thiamine HCl (Thiamine Hcl 100 Mg Tablet) 100 mg PO DAILY [facility] Last Admin: 03/11/25 08:57 Dose: 100 mg Trazodone HCl (Trazodone Hcl 100 Mg Tablet) 100 mg PO BEDTIME MRX1 [facility] Last Admin: 03/10/25 22:14 Dose: 100 mg Allergies Allergies Allergy/AdvReac Type Severity Reaction Status Date / Time No Known Allergies Allergy Verified 02/27/25 17:38 Assessment & Plan Assessment & Plan (1) Major depression: Status: Acute Code(s): F32.9 - Major depressive disorder, single episode, unspecified (2) Alcohol dependence: Status: Acute Code(s): F10.20 - Alcohol dependence, uncomplicated (3) PTSD (post-traumatic stress disorder): Status: Acute Code(s): F43.10 - Post-traumatic stress disorder, unspecified (4) Cognitive deficit as late effect of cerebrovascular accident (CVA): Status: Acute Code(s): I69.319 - Unspecified symptoms and signs involving cognitive functions following cerebral infarction Plan 59 yo female who is transferred from [facility] after she presented there with SI and agitation. Per the chart and referral paperwork patient had originally presented to the [facility] (substance rehab community treatment center) to look for a place to go for treatment for her alcohol use. She was intoxicated and voicing SI and was agitated and was sent to the ED at [facility]. She initially presented to [facility] 02/19/[address] [facility] until 02/27/25 when she transferred to [facility]. Patient has significant cognitive and memory impairment. Likely combination of alcohol use disorder, substance use and reported cerebrovascular disease. Hospital course: 03/01: continue current management and treatment plan. Await results of labs (B12, folate, TSH, CBC) 03/02: Lower Olanzapine to 5mg HS. 03/04: Continue to attempt alliance and provide treatment. 03/07 Patient asks if she can be discharge. Initially she was not sure why she came to the hospital but resume writer reminded her that she expressed SI and has been drinking and patient said that her mother 5 days ago so she has been very sad. She denies any SI now and says I want to live -Continue current treatment plan for now 03/08 Patient shower today however went back to bed and put the covers over her head and would not remove them on approach. Patient said she is all right but said she did not want to talk 03/10 Continue tx. Work with pt/family to meet pt goals for discharge 03/11 Discharge 03/12. PLAN: - Admit to inpatient psychiatry - CV - Collateral information from family and providers. - Milieu treatment and group therapy. - Medications: Continue current medications from [facility]. - Social work evaluation. - Disposition planning. Reason for continued inpatient stay Substantial Risk for: rapid decompensation Time Spent With Patient Time: Total time managing care of this patient today ____ minutes.
[2025-03-11] MEDS: Benzocaine 20 % Oral Gel 9 GM TUBE 1 APPL MUCOUS MEM (14:33)
[2025-03-11 20:00] VITALS: BP 116/57; PULSE 51; RESP 16; TEMP 36.8; O2SAT 97
[2025-03-12 07:00] VITALS: BMI 28.8
[2025-03-12 08:00] VITALS: BP 108/63; PULSE 77; RESP 14; TEMP 36.4; O2SAT 99
--- NOTE | 2025-03-12 09:52 | HO.PSYCHPN ---
Subjective Subjective Date of Service: 03/12/25 Reason For Visit: Depression Unspecified Depression Subjective Notes: Section 7 Healthcare Proxy: No Guardianship: No Medical Problems Affecting Mental Status: No Interim History: Pt reports friend Brisa has spoken with her step father. Team reports step father is rep payee and is working with Brsia to place her on pt's accounts. Pt agrees to VNA if available. Pt discussed the several admissions she has had recently for psychiatry, addiction, medical health. It isn't that I don't appreciate the work everyone has done for me, but I need some freedom to just be myself without being watched all of the time. Brisa gets this. Pt denies SI,HI, AH,VH Medication Compliance: Yes Side effects from medications: No Attending Groups: No Review of Systems Acute medical concerns: No Medical Review of Systems: unchanged Review of Systems Review of Systems Denies Mental Status Exam Mental Status Exam Patient Appearance: Appropriate Patient Orientation: Person, Place, Time and Situation Level of Consciousness: Alert Patient Behavior: Talkative and Good Eye Contact Mood Description: Constricted Affect Description: Constricted Patient Cognition Impaired: No Ability to Follow Directions: Good Speech Pattern: Spontaneous Speech Memory Description: Episodic Impaired Hallucinations: None Delusions: Not Present Thought Process: Rumination Thought Content: positive for Circumstantial and positive for Suicidal Ideation (denies) Depressive Symptoms: Loss of Energy Judgement: Fair Diagnostics Vital Signs (24Hr): Vital Signs - 24 hr 03/11/25 20:00 Temperature 98.2 F Pulse Rate 51 Respiratory Rate 16 Blood Pressure 116/57 L Pulse Oximetry 97 Oxygen Delivery Method Room Air BMI result Body Mass Index 34.9 Labs 02/28/25 08:36 Medications Medications Current Medications Acetaminophen (Acetaminophen 325 Mg Tablet) 650 mg PO Q6H PRN PRN Reason: Headache/Pain, Scale 1-10 Last Admin: 03/11/25 14:33 Dose: 650 mg Al Hydroxide/Mg Hydroxide (Magnesium Hydrox/Alum Hydrox 30 Ml Oral.Susp) 30 ml PO Q6H PRN PRN Reason: Heartburn/Nausea Atorvastatin Calcium (Atorvastatin Calcium 20 Mg Tablet) 20 mg PO DAILY [facility] Last Admin: 03/12/25 08:15 Dose: 20 mg Benzocaine (Benzocaine 20 % Oral Gel 9 Gm Tube) 1 appl MUCOUS MEM QID PRN; Protocol PRN Reason: tooth ache Last Admin: 03/11/25 14:33 Dose: 1 appl Clonidine HCl (Clonidine Hcl 0.1 Mg Tablet) 0.1 mg PO TID PRN; Protocol PRN Reason: anxiety/restlessness Last Admin: 03/10/25 15:59 Dose: 0.1 mg Famotidine (Famotidine 20 Mg Tablet) 40 mg PO BEDTIME [facility] Last Admin: 03/11/25 20:11 Dose: 40 mg Fluoxetine HCl (Fluoxetine Hcl 20 Mg Capsule) 40 mg PO DAILY [facility] Last Admin: 03/12/25 08:15 Dose: 40 mg Folic Acid (Folic Acid 1 Mg Tablet) 1 mg PO DAILY [facility] Last Admin: 03/12/25 08:15 Dose: 1 mg Hydroxyzine HCl (Hydroxyzine Hcl 25 Mg Tablet) 25 mg PO Q6H PRN PRN Reason: mild anxiety Last Admin: 03/11/25 18:21 Dose: 25 mg Levothyroxine Sodium (Levothyroxine Sodium 88 Mcg Tablet) 88 mcg PO DAILY@0600 [facility] Last Admin: 03/12/25 06:46 Dose: 88 mcg Magnesium Hydroxide (Milk Of Magnesia 30 Ml Oral.Susp) 30 ml PO DAILY PRN PRN Reason: Constipation Multivitamins/Vitamin C (Multivitamin Tablet) 1 tab PO DAILY [facility] Last Admin: 03/12/25 08:15 Dose: 1 tab Nicotine (Nicotine 21 Mg Patch.Td24) 21 mg TRANSDERMA DAILY PRN PRN Reason: nicotine craving Nicotine Polacrilex (Nicotine Polacrilex Lozenge 2 Mg Lozenge) 2 mg BUCCAL Q2H PRN PRN Reason: Nicotine Cravings Last Admin: 03/08/25 16:00 Dose: 2 mg Olanzapine (Olanzapine 5 Mg Tablet) 5 mg PO BEDTIME [facility] Last Admin: 03/11/25 20:11 Dose: 5 mg Ondansetron HCl (Ondansetron Odt 4 Mg Tab.Rapdis) 4 mg TRANSLINGU Q6H PRN PRN Reason: Nausea and Vomiting Last Admin: 03/11/25 18:44 Dose: 4 mg Thiamine HCl (Thiamine Hcl 100 Mg Tablet) 100 mg PO DAILY [facility] Last Admin: 03/12/25 08:15 Dose: 100 mg Trazodone HCl (Trazodone Hcl 100 Mg Tablet) 100 mg PO BEDTIME MRX1 [facility] Last Admin: 03/11/25 22:06 Dose: 100 mg Allergies Allergies Allergy/AdvReac Type Severity Reaction Status Date / Time No Known Allergies Allergy Verified 02/27/25 17:38 Assessment & Plan Assessment & Plan (1) Major depression: Status: Acute Code(s): F32.9 - Major depressive disorder, single episode, unspecified (2) Alcohol dependence: Status: Acute Code(s): F10.20 - Alcohol dependence, uncomplicated (3) PTSD (post-traumatic stress disorder): Status: Acute Code(s): F43.10 - Post-traumatic stress disorder, unspecified (4) Cognitive deficit as late effect of cerebrovascular accident (CVA): Status: Acute Code(s): I69.319 - Unspecified symptoms and signs involving cognitive functions following cerebral infarction Plan 59 yo female who is transferred from [facility] after she presented there with SI and agitation. Per the chart and referral paperwork patient had originally presented to the [facility] (substance rehab community treatment center) to look for a place to go for treatment for her alcohol use. She was intoxicated and voicing SI and was agitated and was sent to the ED at [facility]. She initially presented to [facility] 02/19/2025 and was at [facility] until 02/27/25 when she transferred to [facility]. Patient has significant cognitive and memory impairment. Likely combination of alcohol use disorder, substance use and reported cerebrovascular disease. Hospital course: 03/01: continue current management and treatment plan. Await results of labs (B12, folate, TSH, CBC) 03/02: Lower Olanzapine to 5mg HS. 03/04: Continue to attempt alliance and provide treatment. 03/07 Patient asks if she can be discharge. Initially she was not sure why she came to the hospital but public relations writer reminded her that she expressed SI and has been drinking and patient said that her mother 5 days ago so she has been very sad. She denies any SI now and says I want to live -Continue current treatment plan for now 03/08 Patient shower today however went back to bed and put the covers over her head and would not remove them on approach. Patient said she is all right but said she did not want to talk 03/10 Continue tx. Work with pt/family to meet pt goals for discharge 03/12: Discharge 03/13. PLAN: - Admit to inpatient psychiatry - CV - Collateral information from family and providers. - Milieu treatment and group therapy. - Medications: Continue current medications from [facility]. - Social work evaluation. - Disposition planning. Reason for continued inpatient stay Substantial Risk for: rapid decompensation Time Spent With Patient Time: Total time managing care of this patient today ____ minutes.
[2025-03-12 20:00] VITALS: BP 113/68; PULSE 69; RESP 16; TEMP 36.6; O2SAT 98
[2025-03-13 08:54] VITALS: BP 107/66; PULSE 68; RESP 16; TEMP 36.4; O2SAT 98
[2025-03-13] MEDS: Benzocaine 20 % Oral Gel 9 GM TUBE 1 APPL MUCOUS MEM (09:09)
--- NOTE | 2025-03-13 10:15 | PM.PSYDC ---
DS: Providers Provider Date of Service: 03/13/25 Date of admission: 02/27/25 16:31 Date of discharge: 03/13/25 Primary care physician: Unknown Physician Admitting clinician: George Hinkle Attending physician on admission: George Hinkle Consults: 02/27/25 17:39 Consult to Hospitalist Routine Comment: Consulting Provider: [facility] Hospitalists Reason For Exam: New external admit H&P Attending physician on discharge: Fred Granados Discharging clinician: Juany Carbone DS: Diagnosis Discharge Diagnosis (1) Major depression: Status: Acute (2) Alcohol dependence: Status: Acute (3) PTSD (post-traumatic stress disorder): Status: Acute (4) Cognitive deficit as late effect of cerebrovascular accident (CVA): Status: Acute DS: Medications Discharge Medications Home Medications: Previous Rx's ?Medication ?Instructions ?Recorded atorvastatin 20 mg tablet 20 mg PO DAILY #30 tabs 03/13/25 benzocaine 20 % mucosal gel 1 appl mucous membrane QID PRN 03/13/25 (Anbesol (benzocaine) Maximum tooth ache #30 applic Strength) clonidine HCl 0.1 mg tablet 0.1 mg PO TID PRN 03/13/25 Anxiety/Restlessness #90 tabs famotidine 20 mg tablet 40 mg (2 x 20 mg) PO BEDTIME #30 03/13/25 tabs fluoxetine 40 mg capsule 40 mg PO DAILY #30 caps 03/13/25 folic acid 1 mg tablet 1 mg PO DAILY #30 tabs 03/13/25 hydroxyzine HCl 25 mg tablet 25 mg PO Q6H PRN mild anxiety #10 03/13/25 tabs levothyroxine 88 mcg tablet 88 mcg PO DAILY #30 tabs 03/13/25 multivitamin (Daily-Vasile tablet) 1 tab PO DAILY #30 tabs 03/13/25 nicotine (polacrilex) 2 mg buccal 2 mg buccal Q2H PRN Nicotine 03/13/25 lozenge Cravings #60 ea olanzapine 5 mg tablet 5 mg PO BEDTIME #30 tabs 03/13/25 thiamine mononitrate (vit B1) 100 100 mg PO DAILY #30 tabs 03/13/25 mg tablet trazodone 100 mg tablet 100 mg PO BEDTIME MRX1 #30 tabs 03/13/25 Mental Status Exam Mental Status Exam Patient Appearance: Appropriate Patient Orientation: Person, Place, Time and Situation Level of Consciousness: Alert Patient Behavior: Talkative and Good Eye Contact Mood Description: Constricted Affect Description: Constricted Patient Cognition Impaired: No Ability to Follow Directions: Good Speech Pattern: Spontaneous Speech Memory Description: Episodic Impaired Hallucinations: None Delusions: Not Present Thought Process: Rumination Thought Content: positive for Circumstantial and positive for Suicidal Ideation (denies) Depressive Symptoms: Loss of Energy Judgement: Fair DS: Summary Hospital Course Hospital Course: Admission to adult psychiatry for exacerbation of major depression, alcohol use disorder, MCI, grief of the of her mother 3 days prior to admit. Pt with a long hx of alcohol use. Mother did a section 35 with pt prior to admit to [facility] who discharged pt upon completion of this sentence. Pt left the program, was intoxicated and went to [facility] then to [facility]. Pt was uncooperative with care on admit, not interacting with team. Section 7 was filed. MOCA 20/30 indicating mild cognitive impairment. Pt accepted medication and allowed collateral contact. Team was able to talk with pt's childhood friend Brisa and her strength and conditioning coach Srikanth who are strong supports. Pt is from the [facility] and both of these collateral contacts encouraged us to return her to the area. Brisa was willing to have pt come to her home temporarily to find housing and reconnect with services locally, so she can continue with support from friends. Team was able to contact pt's step father in [place]-mother had set up a rep payee system for pt and her sister who has Down's Syndrome. Brisa will be added to this so she may help pt become established. Brisa was concerned that pt was placed so far from her home and is willing to help pt to become established in her home area. Pt was in agreement with this plan and will travel to Brisa's home today upon discharge. Pt will have out patient follow up with [facility] services and will continue to work with Srikanth on her recovery. Status at Discharge Functional status at discharge: independent ambulation Overall status at discharge: patient is progressing back to baseline Time Spent with Patient Time attestation: Total time managing care of this patient today ____ minutes. Time spent: Less than 30 minutes Discharge Plan Discharge Anticipated Discharge Date/Time: 03/13/25 06:26 Patient Disposition: Xfer Other Discharge Diagnosis: Mild Cognitive Impairment Alcohol Use Disorder Major Depression Grief Referrals: [facility] Case Management Intake [Other] - 3-5 Days Referral Note: This is a same day walk-in appointment for an intake. Here you can ask for an appointment with a case management social worker and ask for support with resources in the community. Hours: M-F 8am-8pm Sat-Sun 9am-5pm [facility] w Soniaannabella Small [Other] - 03/19/25 11:30 am Referral Note: This is an in-person medication evaluation appointment. Social work recieved a change in provider for Anitha New Provider's name is Merline Antonio. Srikanth Sibley Scanning Coordinator [Other] - 03/13/25 Referral Note: Please contact for recovery support in the community. [facility] Therapy w Jessie Dexter [Other] - 1 Week Referral Note: At this time you are on Jessie's waitlist and they will reach out to you for an upcoming appointment which should be in April. Please call if you do not hear from them by the end of March. Physician,Unknown J [Primary Care Provider, Medical] Referral Note: Pt reports no pcp at present time. States friend, Brisa, will assist with obtaining pcp or use of Urgent Care after discharge. Discharge Medications: New clonidine HCl 0.1 mg Tablet 0.1 mg PO TID PRN (Reason: Anxiety/Restlessness) Qty: 90 0RF Protocol: Hold for SBP< HOLD for SBP < : 90 olanzapine 5 mg Tablet 5 mg PO BEDTIME Qty: 30 0RF famotidine 20 mg Tablet 40 mg PO BEDTIME Qty: 30 0RF trazodone 100 mg Tablet 100 mg PO BEDTIME MRX1 Qty: 30 0RF folic acid 1 mg Tablet 1 mg PO DAILY Qty: 30 0RF hydroxyzine HCl 25 mg Tablet 25 mg PO Q6H PRN (Reason: mild anxiety) Qty: 10 0RF Anbesol (benzocaine) Max Str 20 % Gel 1 appl mucous membrane QID PRN (Reason: tooth ache) Qty: 30 0RF Protocol: Apply to: Apply to: gums nicotine (polacrilex) 2 mg Lozenge 2 mg buccal Q2H PRN (Reason: Nicotine Cravings) Qty: 60 0RF multivitamin [Daily-Vasile] Tablet 1 tab PO DAILY Qty: 30 0RF thiamine mononitrate (vit B1) 100 mg Tablet 100 mg PO DAILY Qty: 30 0RF Continued fluoxetine 40 mg capsule 40 mg PO DAILY Qty: 30 0RF atorvastatin 20 mg tablet 20 mg PO DAILY Qty: 30 0RF levothyroxine 88 mcg tablet 88 mcg PO DAILY Qty: 30 0RF Discontinued clonidine HCl 0.1 mg tablet 0.1 mg PO QID trazodone 50 mg tablet 100 mg PO BEDTIME PRN (Reason: Insomnia) famotidine 40 mg tablet 40 mg PO DAILY olanzapine 10 mg tablet 10 mg PO BEDTIME pantoprazole 40 mg tablet,delayed release (DR/EC) 40 mg PO BID Discharge Orders: Discharge Order (Routine); Ordered 03/13/25 Ordered By: Juany Carbone Diet: Advance to usual diet Activity on Discharge: As tolerated Stand Alone Forms: Patient Portal Discharge page, Community Support Print Language: Nigerian Care Plan Goals: Abstinence from alcohol and substances Mood and Behavioral Stabilization Health Concerns: Abstinence from alcohol and substances Mood and Behavioral Stabilization Plan of Treatment: Take medications as directed No alcohol Attend scheduled appointments When you arrive at Brisa's home, to the right of the front door push #[id number]. Brisa will answer and will come down to let you in the building. Assessment: Felixies SI,HI,AH,VH No sx of acute jas or psychosis P Discharge Date/Time: 03/13/25 11:15
== END 2025-03-13 11:15 | disposition other institution (70) | DRG 881 ==
PROVIDERS: Nurse Practitioner Psychiatric/Mental Health; Admitting Provider Psychiatry & Neurology Psychiatry; Visit Provider Clinical Nurse Specialist Psychiatric/Mental Health, Adult
DX: F32.9 Major depressive disorder, single episode, unspecified (principal); R45.851 Suicidal ideations; F17.210 Nicotine dependence, cigarettes, uncomplicated; Z71.6 Tobacco abuse counseling; F43.10 Post-traumatic stress disorder, unspecified; F14.91 Cocaine use, unspecified, in remission; Z63.4 Disappearance and death of family member; I69.318 Other symptoms and signs involving cognitive functions following cerebral infarction; F43.21 Adjustment disorder with depressed mood; K21.9 Gastro-esophageal reflux disease without esophagitis; E03.9 Hypothyroidism, unspecified; Z79.890 Hormone replacement therapy; Z79.899 Other long term (current) drug therapy
CPT/HCPCS: 36415; 80053; 80061; 83036; 84439; 84443

== ENCOUNTER → 2025-02-27 16:31 | Outpatient (BNV) | payer OTHER, SELFPAY | PROVIDERS: Admitting Provider Psychiatry & Neurology Psychiatry; Visit Provider Physician Assistant | DX: Z00.8 Encounter for other general examination (principal); F17.200 Nicotine dependence, unspecified, uncomplicated | CPT/HCPCS: 99222 ==

== ENCOUNTER → 2025-02-27 16:31 | Outpatient (BNV) | payer OTHER, SELFPAY | PROVIDERS: Admitting Provider Psychiatry & Neurology Psychiatry; Visit Provider Psychiatry & Neurology Psychiatry | DX: F32.2 Major depressive disorder, single episode, severe without psychotic features (principal); F10.20 Alcohol dependence, uncomplicated; F43.11 Post-traumatic stress disorder, acute; I69.319 Unspecified symptoms and signs involving cognitive functions following cerebral infarction | CPT/HCPCS: 90792; 99231; 99232 ==